=== PATIENT | female | born 1985 | race Caucasian/White ===

== ENCOUNTER 2017-11-02 15:40 | Emergency (ER) | payer OTHER ==
[2017-11-02 16:06] VITALS: BP 157/105; PULSE 89; TEMP 98.3; BMI 27.4
--- NOTE | 2017-11-02 16:06 | PDOC ---
Rapid Medical Evaluation Chief Complaint: Lightheaded Time Seen by Provider: 11/02/17 16:06 Medical Evaluation: Allergies Allergy/AdvReac Type Severity Reaction Status Date / Time No Known Allergies Allergy Verified 11/02/17 16:02 Vital Signs Temp Pulse Resp BP Pulse Ox 98.3 F 89 18 157/105 99 11/02/17 16:02 11/02/17 16:02 11/02/17 16:02 11/02/17 16:02 11/02/17 16:02 11/02/17 16:07 31 year old female with ESRD HD M/W/F with nausea/vomiting/diarrhea since Thursday. Due for HD 6p today. V/s notable for BP 157/105. Alert, oriented, no distress. RRR, S1/S2. Lungs CTAB. Abdomen soft, non-tender. -EKG -CXR -Labs including CBC, CMP, lipase -To Main ED for further eval.
[2017-11-02 17:38] LABS: BASO % 0.2 % (0-2.0); EOS % 0.3 % (0-4.5); HEMATOCRIT 40.7 % (32.4-45.2); LYMPH % 8.4 % (8-40); MCH 35.5 pg (25.7-33.7); MCHC 34.3 g/dl (32.0-36.0); MEAN CELL VOLUME 103.4 fl (80-96); MEAN PLT VOLUME 9.8 fl (7.5-11.1); MONO % 8.5 % (3.8-10.2); NEUT % 82.6 % (42.8-82.8); PLATELET COUNT 167 K/MM3 (134-434); RBC 3.93 M/mm3 (3.60-5.2); RDW 15.9 % (11.6-15.6); WHITE BLOOD COUNT 8.6 K/mm3 (4.0-10.0)
[2017-11-02] MEDS ORDERED: FAMOTIDINE 20 MG/50 ML IVPB 20 MG/50 ML MG IVPB ONE ×2 (17:44→17:58)
[2017-11-02] MEDS ORDERED: ONDANSETRON 4 MG/2 ML VIAL IVPUSH ONE (17:44)
[2017-11-02] MEDS ORDERED: SODIUM CHLORIDE 0.9% 1000 ML INFUS.BAG IV ONE (17:44)
[2017-11-02] MEDS ORDERED: ONDANSETRON 4 MG/2 ML VIAL ONE (17:57)
--- NOTE | 2017-11-02 17:58 | PDOC ---
History of Present Illness - General Chief Complaint: Lightheaded Stated Complaint: DIZZINESS, NAUSEA Time Seen by Provider: 11/02/17 16:06 History Source: Patient Exam Limitations: Language Barrier ([id number]) - History of Present Illness Initial Comments: 11/02/17 17:46 The patient is a 31F with a PMH of HTN and ESR (MWF) who presents to the ER with nausea, vomiting, and diarrhea. The patient states that she's had these symptoms for 1 week and they have been intermittent. She states that she has had diarrhea every 10-20 minutes and it is watery but not bloody. She also endorses NBNB vomiting, which she has vomited 3-4 times yesterday and 5 times today. She denies any fever, chills, abdominal pain. She does not produce urine. She has not taken antibiotics recently. Past History - Past Medical History Allergies/Adverse Reactions: Allergies Allergy/AdvReac Type Severity Reaction Status Date / Time No Known Allergies Allergy Verified 11/02/17 16:02 Home Medications: Ambulatory Orders Amlodipine Besylate [Norvasc -] 10 mg PO DAILY #0 tablet 06/02/13 Furosemide [Lasix -] 40 mg PO DAILY #0 tablet 06/02/13 Lisinopril [Prinivil] 20 mg PO DAILY #0 tablet 06/02/13 Sevelamer HCl [Renagel] 1,600 mg PO TID #0 tablet 06/02/13 Dialysis: Yes (ESRD,last dialysis on 06/01/13.) HTN: Yes - Suicide/Smoking/Psychosocial Hx Smoking History: Never smoked Have you smoked in the past 12 months: No Hx Alcohol Use: No Drug/Substance Use Hx: No Substance Use Type: None Hx Substance Use Treatment: No Review of Systems - Review of Systems Able to Perform ROS?: Yes Comments:: 11/02/17 17:58 GENERAL/CONSTITUTIONAL: No fever or chills. No weakness. HEAD, EYES, EARS, NOSE AND THROAT: No change in vision. No ear pain or discharge. No sore throat. CARDIOVASCULAR: No chest pain, palpitations, or lightheadedness. RESPIRATORY: No cough, wheezing, shortness of breath, or hemoptysis. GASTROINTESTINAL: Positive for nausea, vomiting, and diarrhea. No constipation or abdominal pain. GENITOURINARY: No dysuria, frequency, hematuria, or change in urination. MUSCULOSKELETAL: No joint or muscle swelling or pain. No neck or back pain. SKIN: No rash or lesions. NEUROLOGIC: No headache, numbness, tingling, weakness, loss of consciousness, or change in strength/sensation. ENDOCRINE: No increased thirst. No abnormal weight change. HEMATOLOGIC/LYMPHATIC: No anemia, easy bleeding, or history of blood clots. ALLERGIC/IMMUNOLOGIC: No hives or skin allergy. Is the patient limited Frisian proficient: Yes *Physical Exam - Vital Signs Last Vital Signs Temp Pulse Resp BP Pulse Ox 98.3 F 89 18 157/105 99 11/02/17 16:02 11/02/17 16:02 11/02/17 16:02 11/02/17 16:02 11/02/17 16:02 - Physical Exam Comments: 11/02/17 17:59 GENERAL: Well developed, well nourished. Awake and alert. No acute distress. HEENT: Normocephalic, atraumatic. Hearing grossly normal. Moist mucous membranes. PERRLA, EOMI. No conjunctival pallor. Sclera are non-icteric. NECK: Supple. Full ROM. CARDIOVASCULAR: Regular rate and rhythm. No murmurs, rubs, or gallops. PULMONARY: No evidence of respiratory distress. Lungs clear to auscultation bilaterally. No wheezing, rales or rhonchi. ABDOMINAL: Soft. Non-tender. Non-distended. No rebound or guarding. GENITOURINARY: No CVA tenderness bilaterally. MUSCULOSKELETAL: Normal range of motion at all joints. No bony deformities or tenderness. EXTREMITIES: No cyanosis. No clubbing. No edema. No calf tenderness or swelling. SKIN: Warm and dry. Normal capillary refill. No rashes. No jaundice. NEUROLOGICAL: Alert, awake, appropriate. Cranial nerves 2-12 intact. Normal speech. Gait is normal without ataxia. PSYCHIATRIC: Cooperative. Good eye contact. Appropriate mood and affect. Moderate Sedation - Procedure Monitoring Vital Signs: Vital Signs Temp Pulse Resp BP Pulse Ox 98.3 F 89 18 157/105 99 11/02/17 16:02 11/02/17 16:02 11/02/17 16:02 11/02/17 16:02 11/02/17 16:02 Heart Score/ECG Review #1 General ECG Interpretation: Sinus Rhythm, Normal Rate, Normal Intervals, No acute ischemic changes Compared to previous ECG there are: No significant change 11/02/17 18:01 NSR Vent rate 86 TX 130 QRS 72 QTc 406 No acute ischemic changes noted No STD or XIAO ED Treatment Course - LABORATORY CBC & Chemistry Diagram: 11/02/17 17:23 11/02/17 17:23 - ADDITIONAL ORDERS Additional order review: 11/02/17 17:23 RBC 3.93 MCV 103.4 H MCHC 34.3 RDW 15.9 H MPV 9.8 Neutrophils % 82.6 D Lymphocytes % 8.4 D Monocytes % 8.5 D Eosinophils % 0.3 D Basophils % 0.2 Medical Decision Making - Medical Decision Making 11/02/17 17:59 The patient is a 31F with a PMH of HTN and ESRD (MWF, due for dialysis today at 1800) who presents to the ER with nausea, vomiting, and diarrhea. The patient has no abdominal pain so appendicitis and ovarian torsion are low on my differential. Will treat symptomatically with zofran, pepcid, and IVF. Pending labs. EKG NSR. 11/02/17 20:24 Lipase is 430. U/S of RUQ negative. Will reassess patient. 11/02/17 21:53 Pt states she feels better. Will page Dr. Magali Huertas for recs on dialysis. 11/02/17 23:07 Dr. Huertas suggests the patient follows up tomorrow morning for dialysis. Pt states she feels much better. Will d/c home with dialysis tomorrow and PCP f/u this week. *DC/Admit/Observation/Transfer Diagnosis at time of Disposition: Gastroenteritis, ESRD (end stage renal disease) - Discharge Dispostion Disposition: HOME - Referrals - Patient Instructions Printed Discharge Instructions: DI for Viral Gastroenteritis -- Adult Additional Instructions: Por favor llame a rivas centro de dilisis maana por la maana y terrance haresh gianna con ellos para maana. Por favor, terrance un seguimiento con rivas mdico de atencin primaria en 2-3 sweet. Por favor regrese a la akanksha de emergencia si tiene signos o sntomas de dolor en el pecho, dificultad para respirar, fiebre incontrolable, escalofros, n useas, vmitos, entumecimiento, hormigueo o debilidad en cualquier parte de rivas cuerpo, cambios en la visin o dificultad para hablar. Por favor tome calvin medicamentos segn lo recetado. Por favor regrese a la akanksha de emergencias si los sntomas persisten, empeoran o surgen nuevos sntomas. Please call your dialysis center tomorrow morning and make an appointment with them for tomorrow. Please follow up with your primary care physician in 2-3 days. Please return to the ER if you have any signs or symptoms of chest pain, shortness of breath, uncontrollable fever, chills, nausea, vomiting, numbness, tingling, or weakness in any part of your body, changes in vision, or slurred speech. Please take your medications as prescribed. Please return to the ER if symptoms persist, worsen, or new symptoms arise. Print Language: LATVIAN - Post Discharge Activity
[2017-11-02 18:41] LABS: ALBUMIN 4.2 g/dl (3.4-5.0); ANION GAP 15 (8-16); BILIRUBIN,TOTAL 0.4 mg/dL (0.2-1.0); BLOOD UREA NITROGEN 82 mg/dL (7-18); CALCIUM 9.3 mg/dL (8.5-10.1); CHLORIDE 100 mmol/L (98-107); CO2 19 mmol/L (21-32); GLUCOSE,RANDOM 100 mg/dL (74-106); POTASSIUM 4.2 mmol/L (3.5-5.1); SGPT/ALT 20 U/L (12-78); SODIUM 134 mmol/L (136-145); TOT PROT 8.3 g/dl (6.4-8.2)
[2017-11-02 18:48] LABS: ALK PHOS 58 U/L (45-117)
[2017-11-02 18:53] LABS: CREATININE 14.8 mg/dL (0.55-1.02); LIPASE 431 U/L (73-393); SGOT/AST 4 U/L (15-37)
[2017-11-02] MEDS ORDERED: ACETAMINOPHEN 325 MG TABLET (FP) PO ONE (20:24)
[2017-11-02] MEDS ORDERED: ACETAMINOPHEN 325 MG TABLET (FP) ONE (20:49)
--- NOTE | 2017-11-02 22:58 | PDOC ---
Attending Attestation - Resident Resident Name: [email or web address] - ED Attending Attestation I have performed the following: I have examined & evaluated the patient, The case was reviewed & discussed with the resident, I agree w/resident's findings & plan, Exceptions are as noted - HPI HPI: 11/02/17 22:57 31 YO FEMALE HAS HAD NAUSEA,VOMITING AND DIARRHEA FOR SEVERAL DAYS - Physicial Exam PE: 11/02/17 22:58 WNWD 31 YO FEMALE W MILD EPIGSTRIC DISCOMFORT HEAD NCAT NECK SUPPLE LUNGS CTA B/L CVS CDVH0T6 ABD NO REBOUND , NO GUARDING EXT NO EDEMA DIALYSIS ACCESS INTACT NEURO NO FOCAL NEURO DEFICITS - Medical Decision Making 11/02/17 22:59 GALLBLADDER US NO EVIDENCE OF CHOLECYSTITIS LAB REVIEWED, ELECTROLYTES AARE WNL CASE DISCUSSED W DR ROBINSON VILLALBA AND PLAN IS FOR PT TO GET DIALYSIS FIRST THING IN THE MORNING PT SYMPTOSM RESOLVED IMP GASTROENTERITIS
--- NOTE | 2017-11-02 23:03 | PDOC ---
*Physical Exam - Vital Signs Last Vital Signs Temp Pulse Resp BP Pulse Ox 98.3 F 89 18 157/105 99 11/02/17 16:02 11/02/17 16:02 11/02/17 16:02 11/02/17 16:02 11/02/17 16:02 ED Treatment Course - LABORATORY CBC & Chemistry Diagram: 11/02/17 17:23 11/02/17 17:23 - ADDITIONAL ORDERS Additional order review: Laboratory Results 11/02/17 11/02/17 17:23 17:23 Sodium 134 L Potassium 4.2 Chloride 100 Carbon Dioxide 19 L Anion Gap 15 BUN 82 H Creatinine 14.8 H* Creat Clearance w eGFR 2.85 Random Glucose 100 Calcium 9.3 Total Bilirubin 0.4 AST 4 L ALT 20 Alkaline Phosphatase 58 Total Protein 8.3 H Albumin 4.2 Lipase 431 H Serum , Qual Negative 11/02/17 17:23 RBC 3.93 MCV 103.4 H MCHC 34.3 RDW 15.9 H MPV 9.8 Neutrophils % 82.6 D Lymphocytes % 8.4 D Monocytes % 8.5 D Eosinophils % 0.3 D Basophils % 0.2 - Medications Given in the ED: ED Medications Discontinued Medications Generic Name Dose Route Start Last Admin Trade Name Freq PRN Reason Stop Dose Admin Acetaminophen 650 mg 11/02/17 20:24 11/02/17 20:48 Tylenol - PO 11/02/17 20:25 650 mg ONCE ONE Administration Famotidine/Sodium Chloride 20 mg in 50 mls @ 100 mls/hr 11/02/17 17:44 17:44 Pepcid 20 Mg Premixed Ivpb - IVPB 11/02/17 18:13 100 mls/hr ONCE ONE Administration Ondansetron HCl 4 mg 11/02/17 17:44 11/02/17 17:44 Zofran Injection IVPUSH 11/02/17 17:45 4 mg ONCE ONE Administration Sodium Chloride 500 ml 11/02/17 17:44 11/02/17 17:45 Normal Saline - IV 11/02/17 17:45 Not Given ONCE ONE *DC/Admit/Observation/Transfer Diagnosis at time of Disposition: Gastroenteritis, ESRD (end stage renal disease) - Discharge Dispostion Disposition: HOME Condition at time of disposition: Stable - Referrals - Patient Instructions Printed Discharge Instructions: DI for Viral Gastroenteritis -- Adult Additional Instructions: GO TO DIALYSIS IN THE MORNING Print Language: [place] CITIZEN - Post Discharge Activity
--- NOTE | 2017-11-02 23:32 | EKG ---
Test Reason : Blood Pressure : / mmHG Vent. Rate : 086 BPM Atrial Rate : 086 BPM P-R Int : 130 ms QRS Dur : 072 ms QT Int : 340 ms P-R-T Axes : 062 069 052 degrees QTc Int : 406 ms NORMAL SINUS RHYTHM POSSIBLE LEFT ATRIAL ENLARGEMENT BORDERLINE ECG WHEN COMPARED WITH ECG OF 02-JUN-2013 08:56, NO SIGNIFICANT CHANGE WAS FOUND Confirmed by DANYA CARIAS MD ([id number]) on 11/02/2017 11:32:25 PM Referred By: Confirmed By:DANYA CARIAS MD
== END 2017-11-02 23:45 | disposition home or self-care (01) ==
LOC: JER 15:40
PROC: 3E033GC Introduction of Other Therapeutic Substance into Peripheral Vein, Percutaneous Approach (ICD-10-PCS; principal; 2017-11-02)
PROC: 3E033GC Introduction of Other Therapeutic Substance into Peripheral Vein, Percutaneous Approach (ICD-10-PCS; 2017-11-02)
DX: K52.9 Noninfective gastroenteritis and colitis, unspecified (principal); I12.0 Hypertensive chronic kidney disease with stage 5 chronic kidney disease or end stage renal disease; N18.6 End stage renal disease; N17.8 Other acute kidney failure; Z99.2 Dependence on renal dialysis
CPT/HCPCS: 36415; 71046-TC-FY; 76705-TC; 80053; 83690; 84703; 85025; 93005; 93010; 96365; 96375; 99281-25

== ENCOUNTER 2018-08-25 06:09 | Inpatient (IN) | payer OTHER ==
[~2018-08-25 06:09] MED LIST: BUPIVACAINE HCL/PF (5 MG/ML) 30 ML VIAL IJ ONE
[2018-08-25 07:04] VITALS: BMI 22.3
[2018-08-25] MEDS ORDERED: FAMOTIDINE 20 MG/50 ML IVPB 20 MG/50 ML MG IVPB ONE ×2 (07:38→07:46)
[2018-08-25] MEDS ORDERED: ONDANSETRON *ODT* 4 MG TABLET SL ONE (07:38)
[2018-08-25] MEDS ORDERED: SODIUM CHLORIDE 500 ML IV STA (07:38)
--- NOTE | 2018-08-25 07:43 | PDOC ---
History of Present Illness - General Chief Complaint: Nausea/Vomiting Stated Complaint: VOMITING Time Seen by Provider: 08/25/18 07:27 History Source: Patient Exam Limitations: Clinical Condition - History of Present Illness Initial Comments: 08/25/18 07:39 Patient with history of HTN and renal failure on dialysis present with complaint of epigastric pain, nausea, vomiting and diarrhea since yesterday. Patient reported vomiting 6 times since yesterday and having 4 episodes of diarrhea. Patient denies fever but reports chills. Denies dizziness, cough, shortness of breath or bodyaches. Denies any other symptoms. Patient report last dialysis 3 days ago and will need dialysis today. Timing/Duration: 24 hours Past History - Past Medical History Allergies/Adverse Reactions: Allergies Allergy/AdvReac Type Severity Reaction Status Date / Time No Known Allergies Allergy Verified 08/25/18 07:03 Home Medications: Ambulatory Orders Amlodipine Besylate [Norvasc -] 10 mg PO DAILY #0 tablet 06/02/13 Furosemide [Lasix -] 40 mg PO DAILY #0 tablet 06/02/13 Lisinopril [Prinivil] 20 mg PO DAILY #0 tablet 06/02/13 Sevelamer HCl [Renagel] 1,600 mg PO TID #0 tablet 06/02/13 Dialysis: Yes (ESRD,last dialysis on 06/01/13.) HTN: Yes - Suicide/Smoking/Psychosocial Hx Smoking History: Never smoked Have you smoked in the past 12 months: No Information on smoking cessation initiated: No Hx Alcohol Use: No Drug/Substance Use Hx: No Substance Use Type: None Hx Substance Use Treatment: No Review of Systems - Review of Systems Able to Perform ROS?: Yes Is the patient limited Danish proficient: No Constitutional: Yes: See HPI, Chills. No: Fever HEENTM: No: Symptoms Reported, See HPI, Eye Pain, Blurred Vision, Tearing, Recent change in vision, Double Vision, Cataracts, Ear Pain, Ocular Prothesis, Ear Discharge, Nose Pain, Nose Congestion, Tinnitus, Nose Bleeding, Hearing Loss , Throat Pain, Throat Swelling, Mouth Pain, Dental Problems, Difficulty Swallowing, Mouth Swelling, Other Respiratory: No: Symptoms reported, See HPI, Cough, Orthopnea, Shortness of Breath, SOB with Exertion, SOB at Rest, Stridor, Wheezing, Productive cough, Hemoptysis, Other Cardiac (ROS): No: Symptoms Reported, See HPI, Chest Pain, Edema, Irregular Heart Rate, Lightheadedness, Palpitations, Syncope, Chest Tightness, Other ABD/GI: Yes: See HPI, Diarrhea, Nausea, Vomiting, Abdominal cramping (epigastric ). No: Constipated : No: Dysuria, Frequency, Flank Pain, Hematuria, Urgency All Other Systems: Reviewed and Negative *Physical Exam - Vital Signs Last Vital Signs Temp Pulse Resp BP Pulse Ox 98.3 F 79 16 134/90 100 08/25/18 06:10 08/25/18 06:10 08/25/18 06:10 08/25/18 06:10 08/25/18 06:10 - Physical Exam Comments: 08/25/18 07:41 GENERAL: Well developed, well nourished. Awake and alert. No acute distress. HEENT: Normocephalic, atraumatic. PERRLA, EOMI. No conjunctival pallor. Sclera are non-icteric. Moist mucous membranes. Oropharynx is clear. NECK: Supple. Full ROM. CARDIOVASCULAR: Regular rate and rhythm. No murmurs, rubs, or gallops. Distal pulses are 2+ and symmetric. PULMONARY: No evidence of respiratory distress. Lungs clear to auscultation bilaterally. No wheezing, rales or rhonchi. ABDOMINAL: Mild epigastric tenderness to deep palpation. Soft. Non-distended. No rebound or guarding. No organomegaly. Normoactive bowel sounds. MUSCULOSKELETAL Normal range of motion at all joints. SKIN: Warm and dry. Normal capillary refill. No rashes. No jaundice. NEUROLOGICAL: Alert, awake, appropriate. Gait is normal without ataxia. PSYCHIATRIC: Cooperative. Good eye contact. Appropriate mood General Appearance: Yes: Nourished, Appropriately Dressed. No: Apparent Distress Moderate Sedation - Procedure Monitoring Vital Signs: Procedure Monitoring Vital Signs Temperature 98.3 F 08/25/18 06:10 Pulse Rate 79 08/25/18 06:10 Respiratory Rate 16 08/25/18 06:10 Blood Pressure 134/90 08/25/18 06:10 O2 Sat by Pulse Oximetry (%) 100 08/25/18 06:10 ED Treatment Course - LABORATORY CBC & Chemistry Diagram: 08/25/18 07:50 08/25/18 07:50 Medical Decision Making - Medical Decision Making 08/25/18 07:41 Patient with past medical history of HTN and renal failure present with complaint of 24 hour history of GI symptoms of diarrhea, nausea or vomiting and epigastric pain. Exam significant for moderate tenderness to the epigastric region without guarding or rebound. Symptoms likely cholecystitis versus viral gastroenteritis versus viral syndrome. CBC and chemistry lab ordered. Urine , urinalysis and urine culture ordered. IV fluids with normal saline 500 mg bolus ordered. Pepcid 20 mg IV and Zofran ordered for nausea vomiting and epigastric pain. 08/25/18 11:22 CBC with elevated WBC of 12.9. elevated kidney function which is expected given hx. called to Patient renal provider Dr. Suri Sims office and spoke to Dr. Haseeb Alejandro who agrees to do abd CT with contrast and obs pt for dialysis and gastroenteritis management until last least tomorrow. 08/25/18 16:[address] with contrast shows appendicitis. Zosyn 2.25g ordered. surgical consult obtained 08/25/18 16:27 Patient seen by surgery and to be taken to OR for appendicitis management. Patient admitted to medicine under Dr. Price who will manage patient post surgery and Patient will get dialysis tomorrow at in *DC/Admit/Observation/Transfer Diagnosis at time of Disposition: ESRD (end stage renal disease), Gastroenteritis - Discharge Dispostion Condition at time of disposition: Stable Decision to Admit order: Yes - Referrals - Patient Instructions - Post Discharge Activity
[2018-08-25] MEDS ORDERED: ONDANSETRON *ODT* 4 MG TABLET ONE (07:46)
[2018-08-25 08:05] LABS: BASO % 0.7 % (0-2.0); EOS % 0.1 % (0-4.5); HEMATOCRIT 35.4 % (32.4-45.2); HEMOGLOBIN 12.4 GM/dL (10.7-15.3); LYMPH % 5.7 % (8-40); MEAN CELL VOLUME 102.9 fl (80-96); MEAN PLT VOLUME 8.8 fl (7.5-11.1); MONO % 3.3 % (3.8-10.2); NEUT % 90.2 % (42.8-82.8); PLATELET COUNT 174 K/MM3 (134-434); RBC 3.44 M/mm3 (3.60-5.2); RDW 15.1 % (11.6-15.6); WHITE BLOOD COUNT 12.9 K/mm3 (4.0-10.0)
--- NOTE | 2018-08-25 08:34 | PDOC ---
*Physical Exam - Vital Signs Last Vital Signs Temp Pulse Resp BP Pulse Ox 98.3 F 79 16 134/90 100 08/25/18 06:10 08/25/18 06:10 08/25/18 06:10 08/25/18 06:10 08/25/18 06:10 - Physical Exam Comments: 08/25/18 08:34 The patient was examined by [WILLOW Gerber] under my direct supervision. I personally evaluated the patient. I concur with the above findings and the plan of care. ED Treatment Course - LABORATORY CBC & Chemistry Diagram: 08/27/18 05:30 08/27/18 05:30 - ADDITIONAL ORDERS Additional order review: 08/25/18 07:50 RBC 3.44 L MCV 102.9 H MCHC 35.0 RDW 15.1 MPV 8.8 D Neutrophils % 90.2 H Lymphocytes % 5.7 L D Monocytes % 3.3 L Eosinophils % 0.1 Basophils % 0.7 D - Medications Given in the ED: ED Medications Discontinued Medications Generic Name Dose Route Start Last Admin Trade Name Herb PRN Reason Stop Dose Admin Famotidine/Sodium Chloride 20 mg in 50 mls @ 100 mls/hr 08/25/18 07:38 08:05 Pepcid 20 Mg Premixed Ivpb - IVPB 08/25/18 08:07 100 mls/hr ONCE ONE Administration Ondansetron HCl 4 mg 08/25/18 07:38 08/25/18 08:05 Zofran Odt - SL 08/25/18 07:39 4 mg ONCE ONE Administration *DC/Admit/Observation/Transfer Diagnosis at time of Disposition: ESRD (end stage renal disease), Gastroenteritis - Discharge Dispostion Disposition: HOME Condition at time of disposition: Improved - Referrals - Patient Instructions - Post Discharge Activity
[2018-08-25 08:39] LABS: ALBUMIN 3.8 g/dl (3.4-5.0); ALK PHOS 53 U/L (45-117); ANION GAP 7 MMOL/L (8-16); BILIRUBIN,TOTAL 0.4 mg/dL (0.2-1); BLOOD UREA NITROGEN 50 mg/dL (7-18); CALCIUM 9.5 mg/dL (8.5-10.1); CHLORIDE 98 mmol/L (98-107); CO2 28 mmol/L (21-32); GLUCOSE,RANDOM 114 mg/dL (74-106); POTASSIUM 5.4 mmol/L (3.5-5.1); SGOT/AST 13 U/L (15-37); SGPT/ALT 28 U/L (13-61); SODIUM 134 mmol/L (136-145); TOT PROT 7.2 g/dl (6.4-8.2)
[2018-08-25] MEDS ORDERED: MAG HYDROX/AL HYDROX/SIMETH 30 ML UNIT-DOSE CUP PO ONE (08:56)
[2018-08-25] MEDS ORDERED: ACETAMINOPHEN 1000 MG/100 ML VIAL (NON FORMULARY) IVPB ONE ×2 (08:56→19:50)
[2018-08-25 09:06] LABS: CREATININE 9.6 mg/dL (0.55-1.3)
[2018-08-25] MEDS ORDERED: ACETAMINOPHEN INJECTION 100 ML IVPB ONE ×2 (09:47→20:09)
[2018-08-25] MEDS ORDERED: MAG HYDROX/AL HYDROX/SIMETH 30 ML UNIT-DOSE CUP ONE (09:48)
[2018-08-25 11:24] LABS: LIPASE 463 U/L (73-393)
[2018-08-25] MEDS ORDERED: SODIUM CHLORIDE 250 ML IV PRN (11:44)
--- NOTE | 2018-08-25 12:11 | CONSULT ---
Consult - text type - Consultation Consultation Note: Renal Consult for ESRD on HD This is a 32 year old woman with hx of ESRD on HD (x 6 years), Hypertension who presented with complaints of N/V x 1 day. Pt last had dialysis on Thursday w/o complication. Denies any sick contacts, or new foods. Reports Abd pain that is slightly improved now. No fevers but did have chills. No WHITNEY, Confusion, SOB, CP, leg swelling. Planned for CT of Abd/Pelvis with IV contrast. PMHx: as above Allergies: NKDA Family Hx: NC Social Hx: No T/A/D ROS: as per HPI, all other pertinent ros negative Home Medications Medication Instructions Recorded Amlodipine Besylate [Norvasc -] 10 mg PO DAILY #0 tablet 06/02/13 Furosemide [Lasix -] 40 mg PO DAILY #0 tablet 06/02/13 Lisinopril [Prinivil] 20 mg PO DAILY #0 tablet 06/02/13 Sevelamer HCl [Renagel] 1,600 mg PO TID #0 tablet 06/02/13 Vital Signs Temperature 98.3 F 08/25/18 06:10 Pulse Rate 79 08/25/18 06:10 Respiratory Rate 16 08/25/18 06:10 Blood Pressure 134/90 08/25/18 06:10 O2 Sat by Pulse Oximetry (%) 100 08/25/18 06:10 NAD awake and alert neck supple,no JVD RRR, no M/R CTA, no rales or wheeze soft, + tenderness in epigastric and RLQ. No LE edema left upper arm AVF in place CBC, BMP 08/25/18 07:50 08/25/18 07:50 Laboratory Tests 08/25/18 07:50 AST 13 L ALT 28 Alkaline Phosphatase 53 Albumin 3.8 Lipase 463 H Current Medications Sodium Chloride (Normal Saline -) 250 mls @ 3,000 mls/hr IV PRN PRN PRN Reason: Hypotension during Dialysis Stop: 08/26/18 11:44 32 year old woman with hx of ESRD on HD (x 6 years), Hypertension who presented with complaints of N/V x 1 day. #Nausea and vomiting with Abd pain r/o pancreatitis vs. cholecystitis vs. gastroenteritis #ESRD on HD #Hypertension #Renal Osteodystrophy For CT of the Abd pelvis continue antiemetics as per ED pain control for Hd today following contrast exposure with UF as tolerated Renal Diet when tolerated Continue Amlodipnie, Lisinopril and Lasix following dialysis Continue Pastora plascencia Thank you Will follow Haseeb Alejandro DO
[2018-08-25] MEDS ORDERED: PIPERACILLIN/TAZOB 2.25 GM 2.25 GM in DEXTROSE 5%-WATER - 50 ML IVPB ONE (16:05)
[2018-08-25] MEDS ORDERED: PIPERACILLIN/TAZOB 2.25 GM 2.25 GM/50 ML BAG IVPB ONE (16:09)
[2018-08-25] MEDS ORDERED: SODIUM CHLORIDE 1,000 ML IV SCH ×2 (16:30→17:15)
[2018-08-25] MEDS ORDERED: MORPHINE SULFATE 2 MG/ML VIAL ONE (16:40)
[2018-08-25] MEDS ORDERED: morphine CARPU-JECT 2 MG/1 ML DISP.SYRIN IVPUSH ONE (16:40)
--- NOTE | 2018-08-25 16:48 | HP ---
CHIEF COMPLAINT: nausea, vomiting PCP: HISTORY OF PRESENT ILLNESS: THis is a 32 year old female with a history of renal osteodystrophy with ESRD on HD (MWF), HTN who presents with nausea, NBNB vomiting and non bloody bilious diarrhea, abdominal pain x1 day. States she ate shrimp yesterday, no sick contacts at home. Denies fever but endorses chills. Last dialysis was Thursday. ER CT scan with contrast notable for acute appendicitis. Recent Travel: no PAST MEDICAL HISTORY: as above PAST SURGICAL HISTORY: c section Social History: Smoking:no Alcohol:no Drugs: no Family History: Allergies No Known Allergies Allergy (Verified 08/25/18 07:03) HOME MEDICATIONS: Home Medications Medication Instructions Recorded Amlodipine Besylate [Norvasc -] 10 mg PO DAILY #0 tablet 06/02/13 Furosemide [Lasix -] 40 mg PO DAILY #0 tablet 06/02/13 Lisinopril [Prinivil] 20 mg PO DAILY #0 tablet 06/02/13 Sevelamer HCl [Renagel] 1,600 mg PO TID #0 tablet 06/02/13 REVIEW OF SYSTEMS CONSTITUTIONAL: Positive: chills Absent: fever,, diaphoresis, generalized weakness, malaise, loss of appetite, weight change HEENT: Absent: rhinorrhea, nasal congestion, throat pain, throat swelling, difficulty swallowing, mouth swelling, ear pain, eye pain, visual changes CARDIOVASCULAR: Absent: chest pain, syncope, palpitations, irregular heart rate, lightheadedness , peripheral edema RESPIRATORY: Absent: cough, shortness of breath, dyspnea with exertion, orthopnea, wheezing, stridor, hemoptysis GASTROINTESTINAL: Positive: abdominal pain ,nausea, vomiting, diarrhea, Absent: , abdominal distension, constipation, melena, hematochezia GENITOURINARY: Absent: dysuria, frequency, urgency, hesitancy, hematuria, flank pain, genital pain MUSCULOSKELETAL: Absent: myalgia, arthralgia, joint swelling, back pain, neck pain SKIN: Absent: rash, itching, pallor HEMATOLOGIC/IMMUNOLOGIC: Absent: easy bleeding, easy bruising, lymphadenopathy, frequent infections ENDOCRINE: Absent: unexplained weight gain, unexplained weight loss, heat intolerance, cold intolerance NEUROLOGIC: Absent: headache, focal weakness or paresthesias, dizziness, unsteady gait, seizure, mental status changes, bladder or bowel incontinence PSYCHIATRIC: Absent: anxiety, depression, suicidal or homicidal ideation, hallucinations. PHYSICAL EXAMINATION Vital Signs - 24 hr 08/25/18 08/25/18 06:10 16:30 Temperature 98.3 F Pulse Rate 79 Pulse Rate [ 82 Right] Respiratory 16 Rate Blood Pressure 134/90 Blood Pressure 159/98 [Right Arm] O2 Sat by Pulse 100 Oximetry (%) GENERAL: Awake, alert, and fully oriented, in no acute distress. HEAD: Normal with no signs of trauma. EYES: Pupils equal, round and reactive to light, extraocular movements intact, sclera anicteric, conjunctiva clear. No lid lag. EARS, NOSE, THROAT: Ears normal, nares patent, oropharynx clear without exudates. Moist mucous membranes. NECK: Normal range of motion, supple without lymphadenopathy, JVD, or masses. Breast/axilla; no masses lumps LUNGS: Breath sounds equal, clear to auscultation bilaterally. No wheezes, and no crackles. No accessory muscle use. HEART: Regular rate and rhythm, normal S1 and S2 without murmur, rub or gallop. ABDOMEN: soft; tender b/l lower quad; psoas +; +rovsing MUSCULOSKELETAL: Normal range of motion at all joints. No bony deformities or tenderness. No CVA tenderness. UPPER EXTREMITIES: 2+ pulses, warm, well-perfused. No cyanosis. No clubbing. No peripheral edema. left av fistula with thrill LOWER EXTREMITIES: 2+ pulses, warm, well-perfused. No calf tenderness. No peripheral edema. NEUROLOGICAL: Cranial nerves II-XII intact. Normal speech. PSYCHIATRIC: Cooperative. Good eye contact. Appropriate mood and affect. SKIN: Warm, dry, normal turgor, no rashes or lesions noted, normal capillary refill. Laboratory Results - last 24 hr 08/25/18 08/25/18 08/25/18 07:50 07:50 07:50 WBC 12.9 H RBC 3.44 L Hgb 12.4 Hct 35.4 MCV 102.9 H MCH 36.0 H MCHC 35.0 RDW 15.1 Plt Count 174 MPV 8.8 D Absolute Neuts (auto) 11.6 H Neutrophils % 90.2 H Lymphocytes % 5.7 L D Monocytes % 3.3 L Eosinophils % 0.1 Basophils % 0.7 D Nucleated RBC % 0 Sodium 134 L Potassium 5.4 H Chloride 98 Carbon Dioxide 28 Anion Gap 7 L BUN 50 H Creatinine 9.6 H* Creat Clearance w eGFR 4.67 Random Glucose 114 H Calcium 9.5 Total Bilirubin 0.4 AST 13 L ALT 28 Alkaline Phosphatase 53 Total Protein 7.2 Albumin 3.8 Lipase 463 H Beta HCG, Quant Serum , Qual Negative 08/25/18 12:48 WBC RBC Hgb Hct MCV MCH MCHC RDW Plt Count MPV Absolute Neuts (auto) Neutrophils % Lymphocytes % Monocytes % Eosinophils % Basophils % Nucleated RBC % Sodium Potassium Chloride Carbon Dioxide Anion Gap BUN Creatinine Creat Clearance w eGFR Random Glucose Calcium Total Bilirubin AST ALT Alkaline Phosphatase Total Protein Albumin Lipase Beta HCG, Quant 1.0 Serum , Qual ASSESSMENT/PLAN: This is a 32 year old female with a history of renal osteodystrophy and ESRD on HD, htn, who presents with n/v/d, found to have acute appendicitis. #acute appendicitis: -npo -blood cultures -IV antibiotic zosyn -surgery consult; plan for OR #ESRD: -HD today to medically optimize for surgery -monitor vitals #HTN: -will hold antihypertensive for now as patient is getting HD and plan for sx #hyperkalemia; getting HD today #IVF: hx of esrd; gentle hydration #DIET: npo for sx VTE: scd GI: protonix Disposition: inpatient med surg Visit type - Emergency Visit Emergency Visit: Yes ED Registration Date: 08/25/18 Care time: The patient presented to the Emergency Department on the above date and was hospitalized for further evaluation of their emergent condition. - New Patient This patient is new to me today: Yes Date on this admission: 08/25/18 - Critical Care Critical Care patient: No
--- NOTE | 2018-08-25 17:11 | PN ---
Teaching Attending Note Name of Resident: Mavis Cross ATTENDING PHYSICIAN STATEMENT I saw and evaluated the patient. I reviewed the resident's note and discussed the case with the resident. I agree with the resident's findings and plan as documented with exceptions below. SUBJECTIVE: 32 yof with PMhx of ESRD on HD (x 6 years), HTN, renal osteodystrophy comes with 2 days of abdominal pain, reports worse in right lower abdomen, also epigastrium and Left abdomen, associated with nausea, non bloody vomitus/ diarrhea, with poor oral intake, none since yesterday evening. Denies any fevers , chills or sick contacts. Similar symptoms prior when thought was 'gastritis'. 12 point ROS done, neg except above, denies any chest pain, dyspnea, palpitations, weight gain, orthopnea, PND, leg swelling or new concerns otherwise. OBJECTIVE: Vital Signs Period Temp Pulse Resp BP Sys/House Pulse Ox Last 24 Hr 98.3 F 79-82 16 134-159/90-98 100 Intake & Output 08/22/18 08/23/18 08/24/18 08/25/18 23:59 23:59 23:59 23:59 Weight 130 lb GENERAL: Awake, alert, and fully oriented,weak looking, dehydrated but no acute distress HEAD: Normal with no signs of trauma. EYES: Pupils equal, round and reactive to light, extraocular movements intact, sclera anicteric, conjunctiva clear. No lid lag. EARS, NOSE, THROAT: Ears normal, nares patent, oropharynx clear without exudates. dry skin and mucous membranes. NECK: Normal range of motion, supple without lymphadenopathy, JVD, LUNGS: Breath sounds equal, clear to auscultation bilaterally. No wheezes, and no crackles. No accessory muscle use. HEART: Regular rate and rhythm, normal S1 and S2 ABDOMEN: Soft, obese, RLQ tenderness, positive Rovsing's sin, no voluntary or involuntary guarding or rigidity, positive bowel sound,s mild epigastric tenderness MUSCULOSKELETAL: Normal range of motion at all joints. No bony deformities or tenderness. No CVA tenderness. UPPER EXTREMITIES: left arm AV fistula, no edema, positive pulses LOWER EXTREMITIES: 2+ pulses, warm, well-perfused. No calf tenderness. No peripheral edema. NEUROLOGICAL: AAOx3, facial symmetry, power 5/5, Cranial nerves II-XII intact. Normal speech. Gait not observed PSYCHIATRIC: Cooperative. Good eye contact. Appropriate mood and affect. SKIN: Warm, dry,decreased turgor, no rashes or lesions noted, normal capillary refill. Home Medications Medication Instructions Recorded Amlodipine Besylate [Norvasc -] 10 mg PO DAILY #0 tablet 06/02/13 Furosemide [Lasix -] 40 mg PO DAILY #0 tablet 06/02/13 Lisinopril [Prinivil] 20 mg PO DAILY #0 tablet 06/02/13 Sevelamer HCl [Renagel] 1,600 mg PO TID #0 tablet 06/02/13 Active Medications Sodium Chloride (Normal Saline -) 250 mls @ 3,000 mls/hr IV PRN PRN PRN Reason: Hypotension during Dialysis Stop: 08/26/18 11:44 Sodium Chloride (Normal Saline -) 1,000 mls @ 60 mls/hr IV ASDIR [facility] Stop: 08/26/18 16:30 Last Admin: 08/25/18 17:00 Dose: 60 mls/hr Pantoprazole Sodium (Protonix Iv) 40 mg IVPUSH DAILY [facility] Laboratory Results - last 24 hr 08/25/18 08/25/18 08/25/18 07:50 07:50 07:50 WBC 12.9 H RBC 3.44 L Hgb 12.4 Hct 35.4 MCV 102.9 H MCH 36.0 H MCHC 35.0 RDW 15.1 Plt Count 174 MPV 8.8 D Absolute Neuts (auto) 11.6 H Neutrophils % 90.2 H Lymphocytes % 5.7 L D Monocytes % 3.3 L Eosinophils % 0.1 Basophils % 0.7 D Nucleated RBC % 0 Sodium 134 L Potassium 5.4 H Chloride 98 Carbon Dioxide 28 Anion Gap 7 L BUN 50 H Creatinine 9.6 H* Creat Clearance w eGFR 4.67 Random Glucose 114 H Calcium 9.5 Total Bilirubin 0.4 AST 13 L ALT 28 Alkaline Phosphatase 53 Total Protein 7.2 Albumin 3.8 Lipase 463 H Beta HCG, Quant Serum , Qual Negative 08/25/18 12:48 WBC RBC Hgb Hct MCV MCH MCHC RDW Plt Count MPV Absolute Neuts (auto) Neutrophils % Lymphocytes % Monocytes % Eosinophils % Basophils % Nucleated RBC % Sodium Potassium Chloride Carbon Dioxide Anion Gap BUN Creatinine Creat Clearance w eGFR Random Glucose Calcium Total Bilirubin AST ALT Alkaline Phosphatase Total Protein Albumin Lipase Beta HCG, Quant 1.0 Serum , Qual CT A/P results reviewed EKG NSR, no acute ST-T changes, no Peaked T waves noted Abdominal US results noted ASSESSMENT AND PLAN: 32 yof with ESRD on HD, HTN, renal osteodystrophy with acute appendicitis -Acute appendicitis -Mild hyperkalemia -ESRD on HD -HTN -renal osteodystrophy Plan: case discussed with Dr. Jimenez, Dr. Alejandro and Dr. souza. Plan for OR now. As discussed with Dr. Alejandro, plan for HD tomorrow. Monitor post op closely. Gentle hydration with monitoring of volume status. Blood cx, zosyn renal dosing. Hold anti-HTN, acei for now. DVTPPX pending surgical plans. Call [facility] to reconcile meds. Dispo pending surgical plan and clinical improvement. Plan discussed with patient in detail, all questions answered. Care co-ordinated with Ed and multiple providers as above Total admit time 65 min.
[2018-08-25] MEDS ORDERED: ONDANSETRON 4 MG/2 ML VIAL IVPUSH PRN (17:15)
[2018-08-25] MEDS ORDERED: PROMETHAZINE HCL 25 MG/1 ML VIAL IVPUSH PRN (17:15)
--- NOTE | 2018-08-25 18:18 | PN ---
Progress Note (short form) - Note Progress Note: ID consult dictated d/w Dr Jimenez imp/reccd 32 yo female with esrd/hd for last 6 years admitted with RLQ pain and appendicitis- no fevers +chills, +nausea, vomitng and diarrhea no recent travel lives with family received zosyn in ED d/w Dr Jimenez to receive cefoxitin 1 gram at time of surgery further need for antibiotics to be determined by operative findings [employer] [id number] Problem List - Problems (1) Appendicitis, acute Code(s): K35.80 - UNSPECIFIED ACUTE APPENDICITIS (2) ESRD on hemodialysis Code(s): N18.6 - END STAGE RENAL DISEASE; Z99.2 - DEPENDENCE ON RENAL DIALYSIS
--- NOTE | 2018-08-25 18:35 | CONSULT ---
Consult Consult Specialty:: General Surgery Referred by:: Layla Cunningham/Yue Price Reason for Consultation:: appendicitis - History of Present Illness Chief Complaint: central abdominal pain migrating to RLQ, N/V, diarrhea History of Present Illness: 32yo [place] F with HTN, ESRD on HD x 6 years via LUE fistula, presents with central abdominal pain starting yesterday evening, migrating to RLQ, associated with chills but no fever, N/V, diarrhea. She makes urine about once daily, last yesterday and denies urinary symptoms. In ER, she had wbc 12.9, CT shows acute appendicitis with retrocecal appendix. Labs significant for elevated BUN/Cr, last HD was Thursday, and K 5.4. Per renal, she is stable and can have HD in am. Surgery was asked to assess; she is admitted to medicine. She got 500ml saline in ER and Zosyn 2.25g. She is NPO except some water today, since last night. Home meds include daily Lisinopril, Amlodipine and Metoprolol (bid). Previous surgery includes 3 c-sections via lower midline incision. Pain is better after medication, but is coming back. 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 Place of : Other ([place]) Home Medications - Allergies Allergies/Adverse Reactions: Allergies Allergy/AdvReac Type Severity Reaction Status Date / Time No Known Allergies Allergy Verified 08/25/18 07:03 - Home Medications Home Medications: Ambulatory Orders Amlodipine Besylate [Norvasc -] 10 mg PO DAILY #0 tablet 06/02/13 Furosemide [Lasix -] 40 mg PO DAILY #0 tablet 06/02/13 Lisinopril [Prinivil] 20 mg PO DAILY #0 tablet 06/02/13 Sevelamer HCl [Renagel] 1,600 mg PO TID #0 tablet 06/02/13 Home Medications (free text): also metoprolol 50mg bid Family Disease History - Family Disease History Family History: Unable to Obtain (noncontributory) Review of Systems - Review of Systems Constitutional: reports: Chills. denies: Fever Eyes: denies: Blurred Vision, Recent Change in Vision HENT: denies: Difficult Swallowing, Throat Pain Neck: denies: Swollen Glands, Tenderness Cardiovascular: denies: Chest Pain, Palpitations Respiratory: denies: Cough, SOB Gastrointestinal: reports: Abdominal Pain (with hpi), Diarrhea (with hpi), Nausea (with hpi), Vomiting (with hpi). denies: Constipation Genitourinary: denies: Burning, Dysuria Musculoskeletal: denies: Back Pain, Joint Pain, Muscle Pain Integumentary: reports: Other (warts on right hand). denies: Change in Color, Rash Neurological: denies: Dizziness, Headache Psychiatric: denies: Anxiety, Depression Physical Exam Vital Signs: Vital Signs Temperature 98.3 F 08/25/18 06:10 Pulse Rate 82 08/25/18 16:30 Respiratory Rate 16 08/25/18 06:10 Blood Pressure 159/98 08/25/18 16:30 O2 Sat by Pulse Oximetry (%) 100 08/25/18 06:10 Constitutional: Yes: Well Nourished, No Distress, Calm Eyes: Yes: Conjunctiva Clear, EOM Intact HENT: Yes: Atraumatic, Normocephalic Neck: Yes: Supple, Trachea Midline Cardiovascular: Yes: Tachycardia (mild), Murmur (possible). No: Pulse Irregular Respiratory: Yes: Regular, CTA Bilaterally Gastrointestinal: Yes: Soft, Tenderness (RLQ and RUQ, no rebound or guarding). No: Distention ...Rectal Exam: Yes: Deferred Renal/: Yes: Oliguria (makes urine about once a day, last yesterday). No: CVA Tenderness - Left, CVA Tenderness - Right Musculoskeletal: No: Back Pain, Joint Stiffness, Joint Swelling Extremities: Yes: Other (left arm with AV fistula, excellent thrill, just above and below antecubital fossa). No: Cool, Cyanosis Edema: No Peripheral Pulses WNL: Yes Integumentary: No: Jaundice, Rash Neurological: Yes: Alert, Oriented Psychiatric: Yes: Alert, Oriented Labs: CBC, BMP 08/25/18 07:50 08/25/18 07:50 CMP Sodium 134 mmol/L (136-145) L 08/25/18 07:50 Potassium 5.4 mmol/L (3.5-5.1) H 08/25/18 07:50 Chloride 98 mmol/L (98-107) 08/25/18 07:50 Carbon Dioxide 28 mmol/L (21-32) 08/25/18 07:50 Anion Gap 7 MMOL/L (8-16) L 08/25/18 07:50 BUN 50 mg/dL (7-18) H 08/25/18 07:50 Creatinine 9.6 mg/dL (0.55-1.3) H* 08/25/18 07:50 Creat Clearance w eGFR 4.67 (>60) 08/25/18 07:50 Random Glucose 114 mg/dL (74-106) H 08/25/18 07:50 Calcium 9.5 mg/dL (8.5-10.1) 08/25/18 07:50 Total Bilirubin 0.4 mg/dL (0.2-1) 08/25/18 07:50 AST 13 U/L (15-37) L 08/25/18 07:50 ALT 28 U/L (13-61) 08/25/18 07:50 Alkaline Phosphatase 53 U/L (45-117) 08/25/18 07:50 Total Protein 7.2 g/dl (6.4-8.2) 08/25/18 07:50 Albumin 3.8 g/dl (3.4-5.0) 08/25/18 07:50 Lipase 463 U/L (73-393) H 08/25/18 07:50 Beta HCG, Quant 1.0 mIU/ml 08/25/18 12:48 Serum , Qual Negative 08/25/18 07:50 last dialysis was Thursday Imaging - Results Cat Scan: Report Reviewed, Image Reviewed (images reviewed - enlarged retrocecal appendix with reid-inflammatory changes) Problem List - Problems (1) Acute appendicitis with localized peritonitis, without perforation or abscess Assessment/Plan: admitted to medicine NPO/IVF until postop - IVF until eating postop pain meds prn - nonnarcotics first line avoid ibuprofen/NSAIDs per renal antibiotics perioperatively - got Zosyn in ER DVT prophylaxis Discussed with patient using [employer] phone foreign language interpreter risks, benefits and alternatives of laparoscopic possible open appendectomy, including but not limited to bleeding, infection, injury to adjacent structures, intestinal leak or injury, intraabdominal abscess, incisional hernia, need for further procedures, ; alternatives include antibiotics, delayed or no surgery - risks of this include failure of nonoperative therapy, perforation, sepsis, recurrence, . Patient desires to proceed with operation - will take to OR for above. Informed consent signed for same. will have HD tomorrow morning, heparin-free run anticipate resuming po postop if all goes well, may be able to go home tomorrow after seen by surgery discussed with Dr. Alejandro and Dr. Price Code(s): K35.30 - ACUTE APPENDICITIS WITH LOC PERITONITIS, W/O PERF OR GANGR Qualifiers: Appendicitis gangrene presence: without gangrene Qualified Code(s): K35.30 - Acute appendicitis with localized peritonitis, without perforation or gangrene (2) RLQ abdominal pain Code(s): R10.31 - RIGHT LOWER QUADRANT PAIN (3) Nausea & vomiting Code(s): R11.2 - NAUSEA WITH VOMITING, UNSPECIFIED Qualifiers: Vomiting type: unspecified Vomiting Intractability: non-intractable Qualified Code(s): R11.2 - Nausea with vomiting, unspecified (4) ESRD on hemodialysis Assessment/Plan: HD in am Code(s): N18.6 - END STAGE RENAL DISEASE; Z99.2 - DEPENDENCE ON RENAL DIALYSIS (5) Hypertension Assessment/Plan: continue home meds Code(s): I10 - ESSENTIAL (PRIMARY) HYPERTENSION Qualifiers: Hypertension type: unspecified Qualified Code(s): I10 - Essential (primary ) hypertension
[2018-08-25 19:13] LABS: INR 1.02 (0.83-1.09)
[2018-08-25 19:16] LABS: ACTIVATED PTT 24.7 SECONDS (25.2-36.5)
[2018-08-25] MEDS ORDERED: BUPIVACAINE HCL/PF 0.5% (5MG/ML) 10 ML VIAL ONE (19:48)
[2018-08-25] MEDS ORDERED: BENZOIN TINCTURE SWABSTICK TP ONE (19:48)
[2018-08-25] MEDS ORDERED: CEFOXITIN SODIUM 2 GM IVPB ONE (20:05)
[2018-08-25] MEDS ORDERED: MIDAZOLAM HCL 2 MG/2 ML SINGLE DOSE VIAL ONE (20:16)
[2018-08-25] MEDS ORDERED: PROPOFOL 20 ML ONE (20:16)
[2018-08-25] MEDS ORDERED: ROCURONIUM BROMIDE 50 MG/5 ML VIAL ONE (20:16)
--- NOTE | 2018-08-25 20:31 | CONS ---
DATE OF CONSULTATION: 08/25/2018 HISTORY OF PRESENT ILLNESS: This is a 32-year-old woman with end-stage renal disease. She has been on dialysis now for the last 6 years via left AV fistula. She comes to the ER complaining of abdominal pain with nausea, vomiting, and diarrhea. This has been for the last 48 hours. She had a CAT scan done in the emergency room that showed acute appendicitis. There was no intraluminal air or abscess formation. She denies any fevers. She notes she has been having chills. There is no history of any travel or other sick contacts. PAST MEDICAL HISTORY: Notable for hypertension and dialysis for the last 6 years. SURGICAL HISTORY: Notable for 3 C-sections. She has 3 children, ages 18, 16, and 14. ALLERGIES: No known drug allergies. MEDICATION: She says are metoprolol, lisinopril, and amlodipine. REVIEW OF SYSTEMS: Notable for abdominal pain, nausea, vomiting, diarrhea, and chills. She has no chest pain. She has no back pain. She has no skin rash or dysuria. PHYSICAL EXAMINATION: GENERAL: She is awake and alert. VITAL SIGNS: Temperature 98.3, pulse 82, blood pressure 159/98, respiratory rate 16. She is saturating 100%. She is a comfortable appearing young lady in no acute distress. HEENT: Normocephalic. Eyes are anicteric. NECK: Supple. LUNGS: Clear to auscultation. HEART: Regular rate and rhythm. ABDOMEN: Soft. She has right lower quadrant tenderness extending about half the way up her right side on palpation. EXTREMITIES: Without edema. She has no rash. She has a left AV fistula with a good thrill. LABORATORY: Notable for white count of 12.9, hemoglobin 12.4, platelets of 174, BUN and creatinine are 50 and 9.6, LFTs are normal. IMPRESSION: In summary, she is a young woman with end-stage renal disease who has acute appendicitis. She received a dose of Zosyn in the emergency room. Blood cultures were drawn. It does not appear to be perforated. I discussed the case with the surgeon, Dr. Jimenez. She is to receive cefoxitin 1 g at the time of surgery, and she will get dialyzed tomorrow. The cefoxitin half life is quite long, so further need for antibiotics to be determined by operative findings. Aidan [id number]
[2018-08-25] MEDS ORDERED: LIDOCAINE HCL/PF 2% SDV 5ML VIAL ONE (22:49)
[2018-08-25] MEDS ORDERED: cefOXitin SODIUM 1 GM VIAL (RESTRICTED TO ID) IVPB ONE (23:00)
[2018-08-25] MEDS ORDERED: DEXAMETHASONE SOD PHOSPHATE 4 MG/1 ML VIAL ONE (23:33)
[2018-08-25] MEDS ORDERED: METOPROLOL TARTRATE 5 MG/5 ML VIAL ONE (23:43)
[2018-08-26] MEDS ORDERED: NEOSTIGMINE METHYLSULFATE 0.5 MG/ML - 10 ML MDV ONE (00:15)
[2018-08-26] MEDS ORDERED: GLYCOPYRROLATE 0.2 MG/1 ML VIAL ONE (00:15)
[2018-08-26] MEDS ORDERED: METOPROLOL TARTRATE 5 MG/5 ML VIAL ONE (00:31)
[2018-08-26] MEDS ORDERED: ACETAMINOPHEN INJECTION 100 ML IVPB ONE (00:48)
[2018-08-26] MEDS ORDERED: LABETALOL HCL 5 MG/1 ML (100MG/20 ML VIAL) IVPUSH ONE (00:49)
[2018-08-26] MEDS ORDERED: ACETAMINOPHEN 1000 MG/100 ML VIAL (NON FORMULARY) IVPB ONE (00:49)
[2018-08-26] MEDS ORDERED: HYDROmorphone HCL CARPU-JECT 2 MG/1 ML DISP.SYRIN IVPUSH ONE (00:51)
--- NOTE | 2018-08-26 00:53 | OP ---
Operative Note - Note: Operative Date: 08/25/18 (completed 08/26/18) Pre-Operative Diagnosis: acute appendicitis with localized peritonitis Operation: laparoscopic appendectomy with primary umbilical (incisional) hernia repair Findings: umbilical incisional hernia noted on supraumbilical entry, required repair on way out with extra stitch (fat only reduced); enlarged, inflamed, firm appendix with yellow/purulent fluid in RLQ and pelvis, suctioned Post-Operative Diagnosis: Other (same as preop with umbilical incisional hernia) Surgeon: Daryn Jimenez Anesthesiologist/ASSET PROTECTION ASSISTANT: Shane Campuzano Anesthesia: General, Local (10ml 0.5% marcaine) Specimens Removed: appendix to pathology Estimated Blood Loss (mls): 10 Drains & Tubes with Location: Gallegos out at case end Drains, Volume Out (mls): 0 (some in tubing, not bag (HD pt)) Fluid Volume Replaced (mls): 200 (crystalloid) Operative Report Dictated: Yes
[2018-08-26] MEDS ORDERED: oxyCODONE HCL 5 MG TABLET PO PRN (00:56)
[2018-08-26] MEDS ORDERED: SODIUM CHLORIDE 1,000 ML IV SCH ×2 (00:58→01:22)
[2018-08-26] MEDS ORDERED: HYDROmorphone HCl 2 MG/ML VIAL ONE (01:10)
[2018-08-26] MEDS ORDERED: ONDANSETRON 4 MG/2 ML VIAL IVPUSH PRN (01:22)
[2018-08-26] MEDS ORDERED: PIPERACILLIN/TAZOB 2.25 GM 2.25 GM in DEXTROSE 5%-WATER - 50 ML IVPB SCH (02:00)
[2018-08-26] MEDS ORDERED: DEXTROSE 5%-WATER - 50 ML IVPB ONE ×3 (05:19→16:53)
[2018-08-26] MEDS ORDERED: PIPERACILLIN/TAZOBACTAM 2.25 GM VIAL IVPB ONE ×3 (05:19→16:53)
[2018-08-26] MEDS: PIPERACILLIN/TAZOB 2.25 GM 2.25 GM in DEXTROSE 5%-WATER - 50 ML IVPB SCH ×2 (05:21→10:16)
[2018-08-26] MEDS ORDERED: SEVELAMER HCL 1600 MG PO SCH (06:00)
[2018-08-26] MEDS: ACETAMINOPHEN 325 MG TABLET (FP) PO SCH ×3 (06:53→19:02)
[2018-08-26] MEDS ORDERED: ACETAMINOPHEN 325 MG TABLET (FP) PO SCH (07:00)
[2018-08-26 07:30] LABS: HEMATOCRIT 30.9 % (32.4-45.2); LYMPH % 4.6 % (8-40); MCH 36.4 pg (25.7-33.7); MCHC 35.5 g/dl (32.0-36.0); MEAN CELL VOLUME 102.3 fl (80-96); MEAN PLT VOLUME 9.1 fl (7.5-11.1); MONO % 1.8 % (3.8-10.2); NEUT % 93.6 % (42.8-82.8); PLATELET COUNT 134 K/MM3 (134-434); RBC 3.02 M/mm3 (3.60-5.2); RDW 14.8 % (11.6-15.6)
[2018-08-26 08:37] LABS: ALBUMIN 3.1 g/dl (3.4-5.0); ALK PHOS 51 U/L (45-117); ANION GAP 9 MMOL/L (8-16); BILIRUBIN,TOTAL 0.4 mg/dL (0.2-1); BLOOD UREA NITROGEN 61 mg/dL (7-18); CALCIUM 8.3 mg/dL (8.5-10.1); CHLORIDE 101 mmol/L (98-107); CO2 22 mmol/L (21-32); GLUCOSE,RANDOM 118 mg/dL (74-106); MAGNESIUM 2.8 mg/dL (1.8-2.4); PHOSPHOROUS 6.9 mg/dL (2.5-4.9); SGOT/AST 7 U/L (15-37); SGPT/ALT 20 U/L (13-61); SODIUM 132 mmol/L (136-145); TOT PROT 6.2 g/dl (6.4-8.2)
[2018-08-26 08:38] LABS: CREATININE 11.7 mg/dL (0.55-1.3)
[2018-08-26 08:39] LABS: POTASSIUM 6.3 mmol/L (3.5-5.1)
--- NOTE | 2018-08-26 09:03 | PN ---
Progress Note (short form) - Note Progress Note: Anesthesia postop note 32 y/o F s/p GA for laparoscopic appendectomy POD#1, vss, aaox3, no complaints, to have HD this am. No anesthesia complications.
[2018-08-26] MEDS ORDERED: PANTOPRAZOLE SODIUM 40 MG VIAL IVPUSH SCH (10:00)
[2018-08-26] MEDS ORDERED: METOPROLOL TARTRATE 50 MG TABLET (FP) PO SCH (10:00)
[2018-08-26] MEDS ORDERED: LISINOPRIL 20 MG TABLET (FP) PO SCH (10:00)
[2018-08-26] MEDS ORDERED: amLODIPine BESYLATE 10 MG TABLET (FP) PO SCH (10:00)
[2018-08-26] MEDS: oxyCODONE HCL 5 MG TABLET PO PRN ×2 (10:15→21:33)
--- NOTE | 2018-08-26 10:50 | EKG ---
Test Reason : Blood Pressure : / mmHG Vent. Rate : 068 BPM Atrial Rate : 068 BPM P-R Int : 144 ms QRS Dur : 082 ms QT Int : 400 ms P-R-T Axes : 049 069 044 degrees QTc Int : 425 ms NORMAL SINUS RHYTHM POSSIBLE LEFT ATRIAL ENLARGEMENT BORDERLINE ECG WHEN COMPARED WITH ECG OF 25-AUG-2018 10:01, NO SIGNIFICANT CHANGE WAS FOUND Confirmed by BRITTON ROSADO MD ([id number]) on 08/26/2018 10:50:00 AM Referred By: Confirmed By:BRITTON ROSADO MD
--- NOTE | 2018-08-26 10:54 | EKG ---
Test Reason : Blood Pressure : / mmHG Vent. Rate : 079 BPM Atrial Rate : 079 BPM P-R Int : 140 ms QRS Dur : 080 ms QT Int : 378 ms P-R-T Axes : 061 058 047 degrees QTc Int : 433 ms NORMAL SINUS RHYTHM POSSIBLE LEFT ATRIAL ENLARGEMENT BORDERLINE ECG WHEN COMPARED WITH ECG OF 02-NOV-2017 17:30, NO SIGNIFICANT CHANGE WAS FOUND Confirmed by BRITTON ROSADO MD ([id number]) on 08/26/2018 10:54:03 AM Referred By: Confirmed By:BRITTON ROSADO MD
[2018-08-26 11:14] LABS: ANISOCYTOSIS 0; MACROCYTOSIS 1+; PLATELET ESTIMATE DECREASED
[2018-08-26] MEDS ORDERED: SODIUM CHLORIDE 250 ML IV PRN ×2 (12:51→19:41)
[2018-08-26] MEDS: SEVELAMER CARBONATE 800 MG TAB (FP) PO SCH ×3 (13:35→17:46)
[2018-08-26] MEDS: PANTOPRAZOLE SODIUM 40 MG VIAL IVPUSH SCH ×2 (13:36→16:11)
[2018-08-26] MEDS: METOPROLOL TARTRATE 50 MG TABLET (FP) PO SCH ×3 (13:36→21:33)
[2018-08-26] MEDS: amLODIPine BESYLATE 10 MG TABLET (FP) PO SCH ×2 (13:36→16:11)
[2018-08-26] MEDS: LISINOPRIL 20 MG TABLET (FP) PO SCH ×2 (13:36→16:11)
[2018-08-26] MEDS ORDERED: oxyCODONE HCL 5 MG TABLET PO ONE (13:48)
--- NOTE | 2018-08-26 14:38 | PN ---
Progress Note (short form) - Note Progress Note: Renal follow up for ESRD on HD Pt seen and examined during dialysis having a lot of abd pain, No N/V no fever or chills BP stable, UF goal ~2L pt to be taken off dialysis 30 minutes early Vital Signs Temperature 98.8 F 08/26/18 08:00 Pulse Rate 80 08/26/18 12:30 Respiratory Rate 18 08/26/18 12:30 Blood Pressure 146/92 08/26/18 12:30 O2 Sat by Pulse Oximetry (%) 99 08/26/18 02:45 Intake & Output 08/23/18 08/24/18 08/25/18 08/26/18 23:59 23:59 23:59 23:59 Intake Total 350 290 Output Total 10 Balance 340 290 Weight 58.967 kg 58.967 kg Moderate distress from pain Abd incisions sites with clean dressings CBC, BMP 08/26/18 06:00 08/26/18 06:00 Current Medications Acetaminophen (Tylenol -) 650 mg PO Q6H [facility] Last Admin: 08/26/18 13:37 Dose: 650 mg Amlodipine Besylate (Norvasc -) 10 mg PO DAILY [facility] Last Admin: 08/26/18 13:36 Dose: Not Given Sodium Chloride (Normal Saline -) 1,000 mls @ 60 mls/hr IV ASDIR [facility] Last Admin: 08/26/18 05:51 Dose: Not Given Piperacillin Sod/Tazobactam (Sod 2.25 gm/ Dextrose) 50 mls @ 100 mls/hr IVPB Q8H-IV [facility]; Protocol Stop: 08/27/18 01:59 Last Admin: 08/26/18 10:16 Dose: 100 mls/hr Lisinopril (Prinivil) 20 mg PO DAILY [facility] Last Admin: 08/26/18 13:36 Dose: Not Given Metoprolol Tartrate (Lopressor -) 50 mg PO BID [facility] Last Admin: 08/26/18 13:36 Dose: Not Given Ondansetron HCl (Zofran Injection) 4 mg IVPUSH Q6H PRN PRN Reason: NAUSEA AND/OR VOMITING Oxycodone HCl (Roxicodone -) 5 mg PO Q6H PRN PRN Reason: PAIN LEVEL 7 - 10 Last Admin: 08/26/18 10:15 Dose: 5 mg Pantoprazole Sodium (Protonix Iv) 40 mg IVPUSH DAILY [facility] Last Admin: 08/26/18 13:36 Dose: Not Given Sevelamer Carbonate (Renvela -) 1,600 mg PO TIDCM [facility] Last Admin: 08/26/18 13:36 Dose: Not Given 32 year old woman with hx of ESRD on HD (x 6 years), Hypertension who presented with complaints of N/V x 1 day. #ESRD on HD #Hypertension #Renal Osteodystrophy #Acute Appendicitis #Hyperkalemia s/p Lap appendectomy yesterday tolerated dialysis well but discontinued early due to pain pain control as per surgical team would avoid NSAIDs given pt has residual renal function Expect hyperkalemia to resolve s/p dialysis Check BMP in AM Renal diet when tolerated Haseeb Alejandro DO
--- NOTE | 2018-08-26 15:04 | PN ---
Physical Exam: SUBJECTIVE: Patient seen and examined c/o of abdominal pain OBJECTIVE: Vital Signs Period Temp Pulse Resp BP Sys/House Pulse Ox Last 24 Hr 98.2 F-99.0 F 65-96 16-26 109-166/67-106 96-100 GENERAL: The patient is awake, alert, and fully oriented, in no acute distress. HEAD: Normal with no signs of trauma. LUNGS: Breath sounds equal, clear to auscultation bilaterally, no wheezes, no crackles, no accessory muscle use. HEART: Regular rate and rhythm, S1, S2 without murmur, rub or gallop. ABDOMEN:with laproscopic incisions; clean dry and intact EXTREMITIES: 2+ pulses, warm, well-perfused, no edema. NEUROLOGICAL: Cranial nerves II through XII grossly intact. Normal speech, gait not observed. PSYCH: Normal mood, normal affect. SKIN: Warm, dry, normal turgor, no rashes or lesions noted Laboratory Results - last 24 hr 08/25/18 08/25/18 08/25/18 12:48 18:07 19:30 WBC RBC Hgb Hct MCV MCH MCHC RDW Plt Count MPV Absolute Neuts (auto) Neutrophils % Neutrophils % (Manual) Band Neutrophils % Lymphocytes % Lymphocytes % (Manual) Monocytes % Monocytes % (Manual) Eosinophils % Eosinophils % (Manual) Basophils % Basophils % (Manual) Myelocytes % (Man) Promyelocytes % (Man) Blast Cells % (Manual) Nucleated RBC % Metamyelocytes Hypochromia Platelet Estimate Polychromasia Poikilocytosis Anisocytosis Microcytosis Macrocytosis PT with INR 12.00 INR 1.02 PTT (Actin FS) 24.7 L Sodium Potassium Chloride Carbon Dioxide Anion Gap BUN Creatinine Creat Clearance w eGFR Random Glucose Calcium Phosphorus Magnesium Total Bilirubin AST ALT Alkaline Phosphatase Total Protein Albumin Beta HCG, Quant 1.0 Blood Type A POSITIVE Antibody Screen Negative 08/26/18 08/26/18 06:00 06:00 WBC 10.0 RBC 3.02 L Hgb 11.0 Hct 30.9 L MCV 102.3 H MCH 36.4 H MCHC 35.5 RDW 14.8 Plt Count 134 D MPV 9.1 Absolute Neuts (auto) 9.3 H Neutrophils % 93.6 H Neutrophils % (Manual) 90.8 H Band Neutrophils % 0.0 Lymphocytes % 4.6 L Lymphocytes % (Manual) 7.2 L Monocytes % 1.8 L Monocytes % (Manual) 2 L Eosinophils % 0.0 D Eosinophils % (Manual) 0.0 Basophils % 0.0 Basophils % (Manual) 0.0 Myelocytes % (Man) 0 Promyelocytes % (Man) 0 Blast Cells % (Manual) 0 Nucleated RBC % 0 Metamyelocytes 0 Hypochromia 0 Platelet Estimate Decreased Polychromasia 0 Poikilocytosis 0 Anisocytosis 0 Microcytosis 0 Macrocytosis 1+ PT with INR INR PTT (Actin FS) Sodium 132 L Potassium 6.3 H* Chloride 101 Carbon Dioxide 22 Anion Gap 9 BUN 61 H Creatinine 11.7 H* Creat Clearance w eGFR 3.71 Random Glucose 118 H Calcium 8.3 L Phosphorus 6.9 H Magnesium 2.8 H Total Bilirubin 0.4 AST 7 L ALT 20 Alkaline Phosphatase 51 Total Protein 6.2 L Albumin 3.1 L Beta HCG, Quant Blood Type Antibody Screen Active Medications Generic Name Dose Route Start Last Admin Trade Name Freq PRN Reason Stop Dose Admin Acetaminophen 650 mg 08/26/18 07:00 08/26/18 13:37 Tylenol - PO 650 mg Q6H [facility] Administration Amlodipine Besylate 10 mg 08/26/18 10:00 08/26/18 13:36 Norvasc - PO Not Given [facility]ILY [facility] Sodium Chloride 1,000 mls @ 60 mls/hr 08/26/18 01:22 08/26/18 05:51 Normal Saline - IV Not Given ASDIR [facility] Piperacillin Sod/Tazobactam 50 mls @ 100 mls/hr 08/26/18 02:00 08/26/18 10:16 Sod 2.25 gm/ Dextrose IVPB 08/27/18 01:59 100 mls/hr Q8H-IV [facility] Administration Protocol Lisinopril 20 mg 08/26/18 10:00 08/26/18 13:36 Prinivil PO Not Given DAILY [facility] Metoprolol Tartrate 50 mg 08/26/18 10:00 08/26/18 13:36 Lopressor - PO Not Given BID [facility] Ondansetron HCl 4 mg 08/26/18 01:22 Zofran Injection IVPUSH Q6H PRN NAUSEA AND/OR VOMITING Oxycodone HCl 5 mg 08/26/18 01:22 08/26/18 10:15 Roxicodone - PO 5 mg Q6H PRN Administration PAIN LEVEL 7 - 10 Pantoprazole Sodium 40 mg 08/26/18 10:00 08/26/18 13:36 Protonix Iv IVPUSH Not Given DAILY [facility] Sevelamer Carbonate 1,600 mg 08/26/18 08:00 08/26/18 13:36 Renvela - PO Not Given TIDCM [facility] ASSESSMENT/PLAN: This is a 32 year old female with a history of renal osteodystrophy and ESRD on HD, htn, who presents with n/v/d, found to have acute appendicitis. #acute appendicitis' POD #1 appendectomy -blood cultures -IV antibiotic zosyn -as per surgery note; yellow/purulent fluid in RLQ and pelvis that was suctioned #ESRD: -HD yesterday -Dr. Alejandro following #HTN: -will hold antihypertensive for now as patient is getting HD and plan for sx #hyperkalemia; with ESRD; -ecg stable -labs drawn before dialysis; will repeat bmp in am #IVF: hx of esrd; gentle hydration #DIET: npo for sx VTE: scd GI: protonix Disposition: inpatient med surg Visit type - Emergency Visit Emergency Visit: Yes ED Registration Date: 08/25/18 Care time: The patient presented to the Emergency Department on the above date and was hospitalized for further evaluation of their emergent condition. - New Patient This patient is new to me today: No - Critical Care Critical Care patient: No
--- NOTE | 2018-08-26 15:42 | PN ---
Teaching Attending Note Name of Resident: Mavis Cross ATTENDING PHYSICIAN STATEMENT I saw and evaluated the patient. I reviewed the resident's note and discussed the case with the resident. I agree with the resident's findings and plan as documented with exceptions below. SUBJECTIVE: Patient seen and examined. Getting HD, reports some abdominal pain, no nausea, vomiting or new concerns. OBJECTIVE: Vital Signs Period Temp Pulse Resp BP Sys/House Pulse Ox Last 24 Hr 98.2 F-99.0 F 65-96 16-26 109-166/67-106 96-100 Intake & Output 08/23/18 08/24/18 08/25/18 08/26/18 23:59 23:59 23:59 23:59 Intake Total 350 290 Output Total 10 Balance 340 290 Weight 130 lb 130 lb General: sitting in bed in no acute distress Chest: CTAB, no rales or wheezing Abdomen;soft, RLQ and epigastric tenderness, positive bowel sounds, ND, no voluntary or involuntary guarding or rigidity Extremities: no edema Home Medications Medication Instructions Recorded Amlodipine Besylate [Norvasc -] 10 mg PO DAILY #0 tablet 06/02/13 Furosemide [Lasix -] 40 mg PO DAILY #0 tablet 06/02/13 Lisinopril [Prinivil] 20 mg PO DAILY #0 tablet 06/02/13 Sevelamer HCl [Renagel] 1,600 mg PO TID #0 tablet 06/02/13 Metoprolol Tartrate 50 mg PO BID 08/26/18 Active Medications Acetaminophen (Tylenol -) 650 mg PO Q6H [facility] Last Admin: 08/26/18 13:37 Dose: 650 mg Amlodipine Besylate (Norvasc -) 10 mg PO DAILY [facility] Last Admin: 08/26/18 13:36 Dose: Not Given Piperacillin Sod/Tazobactam (Sod 2.25 gm/ Dextrose) 50 mls @ 100 mls/hr IVPB Q8H-IV [facility]; Protocol Stop: 08/27/18 01:59 Last Admin: 08/26/18 10:16 Dose: 100 mls/hr Lisinopril (Prinivil) 20 mg PO DAILY [facility] Last Admin: 08/26/18 13:36 Dose: Not Given Metoprolol Tartrate (Lopressor -) 50 mg PO BID [facility] Last Admin: 08/26/18 13:36 Dose: Not Given Ondansetron HCl (Zofran Injection) 4 mg IVPUSH Q6H PRN PRN Reason: NAUSEA AND/OR VOMITING Oxycodone HCl (Roxicodone -) 5 mg PO Q6H PRN PRN Reason: PAIN LEVEL 7 - 10 Last Admin: 08/26/18 10:15 Dose: 5 mg Pantoprazole Sodium (Protonix Iv) 40 mg IVPUSH DAILY [facility] Last Admin: 08/26/18 13:36 Dose: Not Given Sevelamer Carbonate (Renvela -) 1,600 mg PO TIDCM [facility] Last Admin: 08/26/18 13:36 Dose: Not Given Laboratory Results - last 24 hr 08/25/18 08/25/18 08/26/18 18:07 19:30 06:00 WBC 10.0 RBC 3.02 L Hgb 11.0 Hct 30.9 L MCV 102.3 H MCH 36.4 H MCHC 35.5 RDW 14.8 Plt Count 134 D MPV 9.1 Absolute Neuts (auto) 9.3 H Neutrophils % 93.6 H Neutrophils % (Manual) 90.8 H Band Neutrophils % 0.0 Lymphocytes % 4.6 L Lymphocytes % (Manual) 7.2 L Monocytes % 1.8 L Monocytes % (Manual) 2 L Eosinophils % 0.0 D Eosinophils % (Manual) 0.0 Basophils % 0.0 Basophils % (Manual) 0.0 Myelocytes % (Man) 0 Promyelocytes % (Man) 0 Blast Cells % (Manual) 0 Nucleated RBC % 0 Metamyelocytes 0 Hypochromia 0 Platelet Estimate Decreased Polychromasia 0 Poikilocytosis 0 Anisocytosis 0 Microcytosis 0 Macrocytosis 1+ PT with INR 12.00 INR 1.02 PTT (Actin FS) 24.7 L Sodium Potassium Chloride Carbon Dioxide Anion Gap BUN Creatinine Creat Clearance w eGFR Random Glucose Calcium Phosphorus Magnesium Total Bilirubin AST ALT Alkaline Phosphatase Total Protein Albumin Blood Type A POSITIVE Antibody Screen Negative 08/26/18 08/26/18 06:00 14:16 WBC RBC Hgb Hct MCV MCH MCHC RDW Plt Count MPV Absolute Neuts (auto) Neutrophils % Neutrophils % (Manual) Band Neutrophils % Lymphocytes % Lymphocytes % (Manual) Monocytes % Monocytes % (Manual) Eosinophils % Eosinophils % (Manual) Basophils % Basophils % (Manual) Myelocytes % (Man) Promyelocytes % (Man) Blast Cells % (Manual) Nucleated RBC % Metamyelocytes Hypochromia Platelet Estimate Polychromasia Poikilocytosis Anisocytosis Microcytosis Macrocytosis PT with INR INR PTT (Actin FS) Sodium 132 L 140 Potassium 6.3 H* 2.8 L* Chloride 101 101 Carbon Dioxide 22 31 Anion Gap 9 7 L BUN 61 H 12 Creatinine 11.7 H* 2.9 H Creat Clearance w eGFR 3.71 18.58 Random Glucose 118 H 137 H Calcium 8.3 L 8.7 Phosphorus 6.9 H Magnesium 2.8 H Total Bilirubin 0.4 AST 7 L ALT 20 Alkaline Phosphatase 51 Total Protein 6.2 L Albumin 3.1 L Blood Type Antibody Screen ASSESSMENT AND PLAN: 32 yof with ESRD on HD, HTN, renal osteodystrophy with acute appendicitis -Acute suppurative appendicitis s/p lap appendectomy -Hyperkalemia -ESRD on HD -HTN -Renal osteodystrophy Plan: s/p HD today. Monitor K levels. PO per surgery. Incentive spirometry. Follow up wound cx. Zosyn for now. Follow up blood cx. Amlodipine/lisinopril/metoprolol. DVTPPX per surgery. dispo in 1-2 days pending clinical improvement and surgical recs. Plan discussed with patient and nursing, all questions answered.
[2018-08-26 15:47] LABS: ANION GAP 7 MMOL/L (8-16); BLOOD UREA NITROGEN 12 mg/dL (7-18); CALCIUM 8.7 mg/dL (8.5-10.1); CHLORIDE 101 mmol/L (98-107); CO2 31 mmol/L (21-32); CREATININE 2.9 mg/dL (0.55-1.3); GLUCOSE,RANDOM 137 mg/dL (74-106); SODIUM 140 mmol/L (136-145)
[2018-08-26 15:53] LABS: POTASSIUM 2.8 mmol/L (3.5-5.1)
--- NOTE | 2018-08-26 17:13 | PN ---
Progress Note, Physician History of Present Illness: Pt s/p lap appy with umbilical/incisional hernia repair overnight for acute appendicitis, with purulent fluid noted in pelvis and RLQ. Feeling better, but had some pain earlier and HD was stopped a bit early, though 1.7L fluid was removed. She has ambulated, tolerating some diet, now hungry. Pain medication is helping when she gets it but is taking oxycodone between tylenol, so may need small Rx for narcotic combo on d/c home. No flatus or BM yet. Seen and examined in her room with family at bedside. Daughter facilitated conversation with regard to [place] and postop instructions reviewed with her and patient. Overall she feels better, but still has some pain RLQ and incisional. - Current Medication List Current Medications: Active Medications Acetaminophen (Tylenol -) 650 mg PO Q6H [facility] Last Admin: 08/26/18 13:37 Dose: 650 mg Amlodipine Besylate (Norvasc -) 10 mg PO DAILY [facility] Last Admin: 08/26/18 16:11 Dose: 10 mg Piperacillin Sod/Tazobactam (Sod 2.25 gm/ Dextrose) 50 mls @ 100 mls/hr IVPB Q8H-IV [facility]; Protocol Stop: 08/27/18 01:59 Last Admin: 08/26/18 10:16 Dose: 100 mls/hr Lisinopril (Prinivil) 20 mg PO DAILY [facility] Last Admin: 08/26/18 16:11 Dose: 20 mg Metoprolol Tartrate (Lopressor -) 50 mg PO BID [facility] Last Admin: 08/26/18 16:11 Dose: 50 mg Ondansetron HCl (Zofran Injection) 4 mg IVPUSH Q6H PRN PRN Reason: NAUSEA AND/OR VOMITING Oxycodone HCl (Roxicodone -) 5 mg PO Q6H PRN PRN Reason: PAIN LEVEL 7 - 10 Last Admin: 08/26/18 10:15 Dose: 5 mg Pantoprazole Sodium (Protonix Iv) 40 mg IVPUSH DAILY [facility] Last Admin: 08/26/18 16:11 Dose: 40 mg Sevelamer Carbonate (Renvela -) 1,600 mg PO TIDCM [facility] Last Admin: 08/26/18 13:36 Dose: Not Given - Objective Vital Signs: Vital Signs Temperature 98.4 F 08/26/18 14:00 Pulse Rate 88 08/26/18 14:00 Respiratory Rate 20 08/26/18 14:00 Blood Pressure 151/84 08/26/18 14:00 O2 Sat by Pulse Oximetry (%) 99 08/26/18 02:45 Constitutional: Yes: Well Nourished, No Distress, Calm Eyes: Yes: Conjunctiva Clear, EOM Intact HENT: Yes: Atraumatic, Normocephalic Gastrointestinal: Yes: Soft, Distention (mild), Tenderness (R mid/lateral abdomen, less RLQ; incisional, mostly umbilical, appropriate for postop). No: Tenderness, Epigastrium, Tenderness, Rebound Genitourinary: Yes: Anuria (no urine yet) Extremities: No: Cool, Cyanosis Integumentary: Yes: Incision (x3 dressed). No: Jaundice, Rash Wound/Incision: Yes: Steri Strips (under dressings), Dressing Dry and Intact (x3 ). No: Dressing Removed Neurological: Yes: Alert, Oriented Labs: CBC, BMP 08/26/18 06:00 08/26/18 14:16 BMP is from immediately post HD today - discussed with Dr. Javon Matthew result likely artificially a bit low Problem List - Problems (1) Acute appendicitis with localized peritonitis, without perforation or abscess Assessment/Plan: POD 0/1 s/p laparoscopic appendectomy with primary umbilical/incisional hernia repair with findings of purulent fluid in RLQ and pelvis doing well overall probably a bit dry after HD, encouraged to drink fluids ad taylor IVF and antibiotics stopped (had 3 doses postop, discussed with Dr. Bae) pain meds working - scheduled tylenol q6h, prn oxycodone for breakthrough no ibuprofen because of residual renal function using some narcotics, so may benefit from small Rx Percocet at d/c home, depending on how she feels tomorrow advised to use stool softener bid if she does use narcotic combo at home to avoid constipation ambulating, tolerating diet no bowel function yet, no urine yet incisions with dressings c/d/i ok from surgery standpoint for d/c home with lifting restrictions to f/u in 2 wks instructions in d/c plan will stay till tomorrow for short HD in am per renal primary team informed Code(s): K35.30 - ACUTE APPENDICITIS WITH LOC PERITONITIS, W/O PERF OR GANGR Qualifiers: Appendicitis gangrene presence: without gangrene Qualified Code(s): K35.30 - Acute appendicitis with localized peritonitis, without perforation or gangrene (2) RLQ abdominal pain Assessment/Plan: improved Code(s): R10.31 - RIGHT LOWER QUADRANT PAIN (3) Nausea & vomiting Assessment/Plan: improved, resolved Code(s): R11.2 - NAUSEA WITH VOMITING, UNSPECIFIED Qualifiers: Vomiting type: unspecified Vomiting Intractability: non-intractable Qualified Code(s): R11.2 - Nausea with vomiting, unspecified (4) ESRD on hemodialysis Assessment/Plan: for short run in am, no fluid removal, heparin free (for a week, per renal) discussed with Dr. Alejandro then should be good for d/c home, back to usual HD schedule MWF Code(s): N18.6 - END STAGE RENAL DISEASE; Z99.2 - DEPENDENCE ON RENAL DIALYSIS (5) Hypertension Assessment/Plan: continue home meds Code(s): I10 - ESSENTIAL (PRIMARY) HYPERTENSION Qualifiers: Hypertension type: unspecified Qualified Code(s): I10 - Essential (primary ) hypertension
[2018-08-27] MEDS: ACETAMINOPHEN 325 MG TABLET (FP) PO SCH ×2 (01:00→06:37)
[2018-08-27 07:39] LABS: BASO % 0.5 % (0-2.0); HEMATOCRIT 30.5 % (32.4-45.2); HEMOGLOBIN 10.7 GM/dL (10.7-15.3); MCH 36.8 pg (25.7-33.7); MCHC 35.2 g/dl (32.0-36.0); MEAN CELL VOLUME 104.4 fl (80-96); MEAN PLT VOLUME 9.5 fl (7.5-11.1); MONO % 7.8 % (3.8-10.2); NEUT % 65.7 % (42.8-82.8); PLATELET COUNT 136 K/MM3 (134-434); RBC 2.92 M/mm3 (3.60-5.2); RDW 15.1 % (11.6-15.6); WHITE BLOOD COUNT 7.1 K/mm3 (4.0-10.0)
[2018-08-27 08:13] LABS: ANION GAP 9 MMOL/L (8-16); BLOOD UREA NITROGEN 30 mg/dL (7-18); CALCIUM 8.7 mg/dL (8.5-10.1); CHLORIDE 99 mmol/L (98-107); CO2 30 mmol/L (21-32); GLUCOSE,RANDOM 90 mg/dL (74-106); MAGNESIUM 1.9 mg/dL (1.8-2.4); PHOSPHOROUS 6.3 mg/dL (2.5-4.9); POTASSIUM 3.8 mmol/L (3.5-5.1); SODIUM 137 mmol/L (136-145)
[2018-08-27 08:28] LABS: CREATININE 7.5 mg/dL (0.55-1.3)
[2018-08-27] MEDS ORDERED: PANTOPRAZOLE 40 MG TABLET (FP) PO SCH (10:00)
[2018-08-27 10:19] VITALS: TEMP 98.1
[2018-08-27] MEDS: METOPROLOL TARTRATE 50 MG TABLET (FP) PO SCH (11:33)
[2018-08-27] MEDS: amLODIPine BESYLATE 10 MG TABLET (FP) PO SCH (11:33)
[2018-08-27] MEDS: LISINOPRIL 20 MG TABLET (FP) PO SCH (11:33)
[2018-08-27] MEDS: SEVELAMER CARBONATE 800 MG TAB (FP) PO SCH (11:34)
--- NOTE | 2018-08-27 11:43 | PN ---
Teaching Attending Note Name of Resident: Mavis Cross ATTENDING PHYSICIAN STATEMENT I saw and evaluated the patient. I reviewed the resident's note and discussed the case with the resident. I agree with the resident's findings and plan as documented with exceptions below. SUBJECTIVE: Patient seen and examined. Pain better, tolerating diet, no complaints. getting HD. OBJECTIVE: Vital Signs Period Temp Pulse Resp BP Sys/House Pulse Ox Last 24 Hr 98.1 F-98.8 F 57-89 16-20 98-159/58-99 97 Intake & Output 08/24/18 08/25/18 08/26/18 08/27/18 23:59 23:59 23:59 23:59 Intake Total 350 340 200 Output Total 10 Balance 340 340 200 Weight 130 lb 130 lb 134 lb 9.6 oz General: sitting in bed in no acute distress Chest: CTAB, no rales or wheezing Abdomen:Soft, minimal tenderness around laparoscopic sites, normoactive bowel sounds, No voluntary or involuntary guarding, ND Extremities: no edema Home Medications Medication Instructions Recorded Amlodipine Besylate [Norvasc -] 10 mg PO DAILY #0 tablet 06/02/13 Lisinopril [Prinivil] 20 mg PO DAILY #0 tablet 06/02/13 Sevelamer HCl [Renagel] 1,600 mg PO TID #0 tablet 06/02/13 Metoprolol Tartrate 50 mg PO BID 08/26/18 Active Medications Acetaminophen (Tylenol -) 650 mg PO Q6H [facility] Last Admin: 08/27/18 06:37 Dose: 650 mg Amlodipine Besylate (Norvasc -) 10 mg PO DAILY [facility] Last Admin: 08/27/18 11:33 Dose: 10 mg Sodium Chloride (Normal Saline -) 250 mls @ 3,000 mls/hr IV PRN PRN PRN Reason: Hypotension during Dialysis Stop: 08/27/18 19:42 Lisinopril (Prinivil) 20 mg PO DAILY [facility] Last Admin: 08/27/18 11:33 Dose: 20 mg Metoprolol Tartrate (Lopressor -) 50 mg PO BID [facility] Last Admin: 08/27/18 11:33 Dose: 50 mg Ondansetron HCl (Zofran Injection) 4 mg IVPUSH Q6H PRN PRN Reason: NAUSEA AND/OR VOMITING Oxycodone HCl (Roxicodone -) 5 mg PO Q6H PRN PRN Reason: PAIN LEVEL 7 - 10 Last Admin: 08/26/18 21:33 Dose: 5 mg Pantoprazole Sodium (Protonix -) 40 mg PO DAILY [facility] Last Admin: 08/27/18 11:33 Dose: 40 mg Sevelamer Carbonate (Renvela -) 1,600 mg PO TIDCM [facility] Last Admin: 08/27/18 11:34 Dose: 1,600 mg Laboratory Results - last 24 hr 08/26/18 08/26/18 08/27/18 10:30 14:16 05:30 WBC RBC Hgb Hct MCV MCH MCHC RDW Plt Count MPV Absolute Neuts (auto) Neutrophils % Lymphocytes % Monocytes % Eosinophils % Basophils % Nucleated RBC % Sodium 140 137 Potassium 2.8 L* 3.8 Chloride 101 99 Carbon Dioxide 31 30 Anion Gap 7 L 9 BUN 12 30 H Creatinine 2.9 H 7.5 H* Creat Clearance w eGFR 18.58 6.20 Random Glucose 137 H 90 Calcium 8.7 8.7 Phosphorus 6.3 H Magnesium 1.9 Hep C Ab Diagnostic 0.1 08/27/18 05:30 WBC 7.1 RBC 2.92 L Hgb 10.7 Hct 30.5 L MCV 104.4 H MCH 36.8 H MCHC 35.2 RDW 15.1 Plt Count 136 MPV 9.5 Absolute Neuts (auto) 4.7 Neutrophils % 65.7 D Lymphocytes % 25.0 D Monocytes % 7.8 D Eosinophils % 1.0 D Basophils % 0.5 D Nucleated RBC % 0 Sodium Potassium Chloride Carbon Dioxide Anion Gap BUN Creatinine Creat Clearance w eGFR Random Glucose Calcium Phosphorus Magnesium Hep C Ab Diagnostic Microbiology 08/25/18 16:48 Blood - Peripheral Venous Blood Culture - Preliminary NO GROWTH OBTAINED AFTER 24 HOURS, INCUBATION TO CONTINUE FOR 4 DAYS. 08/25/18 16:48 Blood - Peripheral Venous Blood Culture - Preliminary NO GROWTH OBTAINED AFTER 24 HOURS, INCUBATION TO CONTINUE FOR 4 DAYS. ASSESSMENT AND PLAN: 32 yof with ESRD on HD, HTN, renal osteodystrophy with acute appendicitis -Acute suppurative appendicitis s/p lap appendectomy -Hyperkalemia -ESRD on HD -HTN -Renal osteodystrophy Plan: Doing well Surgery input noted Off Abx tolerating diet Abdominal exam non concerning. Short run of HD today D.c home after HD today with outpatient surgery follow up Plan discussed with patient and nursing, all questions answered.
--- NOTE | 2018-08-27 11:44 | DS ---
Physical Exam: SUBJECTIVE: Patient seen and examined Post op day # 2 appenedectomy and umbilical/incisional hernia repair, no complaints, sitting up in bed eating breakfast. OBJECTIVE: Vital Signs Period Temp Pulse Resp BP Sys/House Pulse Ox Last 24 Hr 98.1 F-98.8 F 57-89 16-20 98-159/58-99 97 PHYSICAL EXAM GENERAL: The patient is awake, alert, and fully oriented, in no acute distress. LUNGS: Breath sounds equal, clear to auscultation bilaterally, no wheezes, no crackles, no accessory muscle use. HEART: Regular rate and rhythm, S1, S2 without murmur, rub or gallop. ABDOMEN: Soft, nontender, nondistended, normoactive bowel sounds, no guarding, no rebound, no hepatosplenomegaly, no masses. EXTREMITIES: 2+ pulses, warm, well-perfused, no edema. NEUROLOGICAL: Cranial nerves II through XII grossly intact. Normal speech, gait not observed. PSYCH: Normal mood, normal affect. SKIN: Warm, dry, normal turgor, no rashes or lesions noted. LABS Laboratory Results - last 24 hr 08/26/18 08/26/18 08/27/18 10:30 14:16 05:30 WBC RBC Hgb Hct MCV MCH MCHC RDW Plt Count MPV Absolute Neuts (auto) Neutrophils % Lymphocytes % Monocytes % Eosinophils % Basophils % Nucleated RBC % Sodium 140 137 Potassium 2.8 L* 3.8 Chloride 101 99 Carbon Dioxide 31 30 Anion Gap 7 L 9 BUN 12 30 H Creatinine 2.9 H 7.5 H* Creat Clearance w eGFR 18.58 6.20 Random Glucose 137 H 90 Calcium 8.7 8.7 Phosphorus 6.3 H Magnesium 1.9 Hep C Ab Diagnostic 0.1 08/27/18 05:30 WBC 7.1 RBC 2.92 L Hgb 10.7 Hct 30.5 L MCV 104.4 H MCH 36.8 H MCHC 35.2 RDW 15.1 Plt Count 136 MPV 9.5 Absolute Neuts (auto) 4.7 Neutrophils % 65.7 D Lymphocytes % 25.0 D Monocytes % 7.8 D Eosinophils % 1.0 D Basophils % 0.5 D Nucleated RBC % 0 Sodium Potassium Chloride Carbon Dioxide Anion Gap BUN Creatinine Creat Clearance w eGFR Random Glucose Calcium Phosphorus Magnesium Hep C Ab Diagnostic HOSPITAL COURSE: Date of Admission:08/25/18 Date of Discharge: 08/27/18 This is a 32 year old female with a history of renal osteodystrophy and ESRD on HD, htn, who presents with n/v/d, found to have acute appendicitis. Post op day # 2 appenedectomy and umbilical/incisional hernia repair. Vitals are stable, afebrile, getting hemodialysis. Treated with IV antibiotics zosyn, not deemed necessary for antibiotics upon discharge. Hypertension controlled. Continue with hemodialysis and follow up with nephrology. Minutes to complete discharge: 40 Discharge Summary Reason For Visit: GASTROENTERITIS,ESRD Current Active Problems Acute appendicitis with localized peritonitis, without perforation or abscess ( Acute) Appendicitis, acute (Acute) ESRD (end stage renal disease) (Acute) ESRD on hemodialysis (Acute) Gastroenteritis (Acute) Hypertension (Acute) Incisional hernia of anterior abdominal wall without obstruction or gangrene ( Acute) Nausea & vomiting (Acute) RLQ abdominal pain (Acute) Condition: Improved - Instructions Diet, Activity, Other Instructions: Postoperative instructions: You had a laparoscopic appendectomy with umbilical incisional hernia repair on 08/25- by Dr. Daryn Jimenez of [facility]. Activity: Resume your usual activities gradually, but no heavy exertion or lifting more than 10-15 pounds for 4-6 weeks. Remove dressings 48 hours after surgery; sticky tapes underneath will fall off by themselves. You may shower daily starting then, just pat the incision areas dry. No bath or swimming until skin incisions have healed. Eat lightly at first, but advance to your usual diet as tolerated. Pain: For pain, you may use Tylenol (acetaminophen) 1-2 pills every 6 hours as needed. Do not take more than 4000mg of acetaminophen in a day. Take medications as prescribed or indicated on the labeling. Use a stool softener ( over the counter) twice daily for as long as you are taking any narcotics to avoid constipation. Follow-up: Call Dr. Jimenez's office at [phone] to make your postop appointment (approximately 2 weeks after surgery). Clinic is held in the Diagnostic Center on the first floor of [facility] or on the 5th floor ([address]) in the [facility]. Call the office if you have: * increasing pain not responsive to pain medication * fever of 101F or higher * vomiting * unusual or increasing bleeding or drainage from wounds * increasing redness or swelling at wound sites Also, see your primary medical doctor within 1-2 weeks. Resume your usual hemodialysis schedule, but no heparin for 1 week postoperatively. Resume taking your usual home medicines. Referrals: Daryn Jimenez MD [Staff Physician] - 2 Weeks (CALL for appointment) Disposition: HOME - Home Medications Comprehensive Discharge Medication List: Ambulatory Orders Amlodipine Besylate [Norvasc -] 10 mg PO DAILY #0 tablet 06/02/13 Lisinopril [Prinivil] 20 mg PO DAILY #0 tablet 06/02/13 Sevelamer HCl [Renagel] 1,600 mg PO TID #0 tablet 06/02/13 Metoprolol Tartrate 50 mg PO BID 08/26/18 This patient is new to me today: No Emergency Visit: Yes ED Registration Date: 08/25/18 Care time: The patient presented to the Emergency Department on the above date and was hospitalized for further evaluation of their emergent condition. Critical Care patient: No - Discharge Referral Referred to [facility] Med [facility].: No
[2018-08-27 12:16] VITALS: BP 107/67; PULSE 72
--- NOTE | 2018-08-27 12:17 | PN ---
Progress Note (short form) - Note Progress Note: Renal follow up for ESRD on HD Pt seen and examined at the bedside s/p dialysis this am w/o UF tolerated it well no acute complaints Vital Signs Temperature 98.1 F 08/27/18 09:00 Pulse Rate 62 08/27/18 10:15 Respiratory Rate 18 08/27/18 10:15 Blood Pressure 99/68 08/27/18 10:15 O2 Sat by Pulse Oximetry (%) 97 08/26/18 21:00 Intake & Output 08/24/18 08/25/18 08/26/18 08/27/18 23:59 23:59 23:59 23:59 Intake Total 350 340 200 Output Total 10 Balance 340 340 200 Weight 58.967 kg 58.967 kg 61.054 kg Moderate distress from pain Abd incisions sites with clean dressings CBC, BMP 08/27/18 05:30 08/27/18 05:30 Current Medications Acetaminophen (Tylenol -) 650 mg PO Q6H [facility] Last Admin: 08/27/18 06:37 Dose: 650 mg Amlodipine Besylate (Norvasc -) 10 mg PO DAILY [facility] Last Admin: 08/27/18 11:33 Dose: 10 mg Sodium Chloride (Normal Saline -) 250 mls @ 3,000 mls/hr IV PRN PRN PRN Reason: Hypotension during Dialysis Stop: 08/27/18 19:42 Lisinopril (Prinivil) 20 mg PO DAILY [facility] Last Admin: 08/27/18 11:33 Dose: 20 mg Metoprolol Tartrate (Lopressor -) 50 mg PO BID [facility] Last Admin: 08/27/18 11:33 Dose: 50 mg Ondansetron HCl (Zofran Injection) 4 mg IVPUSH Q6H PRN PRN Reason: NAUSEA AND/OR VOMITING Oxycodone HCl (Roxicodone -) 5 mg PO Q6H PRN PRN Reason: PAIN LEVEL 7 - 10 Last Admin: 08/26/18 21:33 Dose: 5 mg Pantoprazole Sodium (Protonix -) 40 mg PO DAILY [facility] Last Admin: 08/27/18 11:33 Dose: 40 mg Sevelamer Carbonate (Renvela -) 1,600 mg PO TIDCM [facility] Last Admin: 08/27/18 11:34 Dose: 1,600 mg 32 year old woman with hx of ESRD on HD (x 6 years), Hypertension who presented with complaints of N/V x 1 day. #ESRD on HD #Hypertension #Renal Osteodystrophy #Acute Appendicitis #Hyperkalemia Tolerated dialysis well today, next session to be Thursday as an outpatient Pain control discharge planning as per surgery and primary team Haseeb Alejandro DO
[2018-08-27 12:25] LABS: HBSAG SCREEN Negative (Negative); HEP A AB, IGM Negative (Negative); HEP B CORE AB, TOT Negative (Negative)
--- NOTE | 2018-08-27 17:37 | PATH ---
Surgical Pathology Report Patient Name: AMANDA HUA [facility]. Rec. #: [id number] /Age/Gender: 1985 (Age: 32) / F Account: [id number] Location: 4 W TELEMETRY U Taken: 08/25/2018 Received: 08/26/2018 Reported: 08/27/2018 Physicians: Daryn Jimenez M.D. Specimen(s) Received APPENDIX Clinical History Acute appendicitis, localized peritonitis Final Diagnosis APPENDIX, LAPAROSCOPIC APPENDECTOMY: ACUTE APPENDICITIS AND PERIAPPENDICITIS. Electronically Signed Amanda Weeks M.D. Gross Description Received in formalin, labeled "appendix," is a 6 cm. in length vermiform appendix with a stapled margin of resection and moderate attached fat. The serosa is hussein-cho with focal attached exudate. Sectioning reveals a dilated lumen containing hussein pus. The wall of the appendix averages 0.1 cm. in thickness. Painter And Decorator sections are submitted in one cassette. 08/26/2018 saudi08/26/2018
--- NOTE | 2018-08-31 23:39 | OP ---
DATE OF OPERATION: 08/25/2018 (completed on 08/26/2018) PREOPERATIVE DIAGNOSIS: Acute appendicitis with localized peritonitis. POSTOPERATIVE DIAGNOSIS: Acute appendicitis with localized peritonitis and umbilical incisional hernia. PROCEDURE: Laparoscopic appendectomy with primary umbilical/incisional hernia repair. SURGEON: Daryn Jimenez MD ANESTHESIA: General endotracheal and local with 10 mL of 0.5% Marcaine. ESTIMATED BLOOD LOSS: 10 mL FLUIDS: 200 mL of crystalloid. URINE OUTPUT: Droplets in the Gallegos tubing only (hemodialysis patient). SPECIMEN: Appendix to Pathology. FINDINGS: An umbilical incisional hernia was noted on supraumbilical entry, which required repair on the way out with an extra stitch (fat only reduced). An enlarged and inflamed firm appendix was noted with yellow/purulent fluid in the right lower quadrant and pelvis, which was suctioned. DISPOSITION: Stable and extubated to PACU. INDICATIONS FOR PROCEDURE: The patient is a 32-year-old [place] female with history of hypertension and end-stage renal disease on hemodialysis for the last 6 years via left upper extremity AV fistula who presented to the emergency room with central abdominal pain beginning the evening prior, migrating to the right lower quadrant, associated with chills, nausea, vomiting, and diarrhea. She does still make some urine, but the last episode had been the day before presentation. In the emergency room a white count was 12.9 and a CAT scan showed acute appendicitis with what appeared to be a retrocecal appendix. Labs were significant for high BUN and creatinine as her last hemodialysis had been 2 days prior. Nephrology believed that she was stable and was planning to do hemodialysis first thing in the morning. She got small fluid bolus and IV antibiotics in the emergency room. Previous surgeries also included 3 sections via a lower midline incision. Discussion was had with the patient utilizing a Occitan phone production floater of the risks, benefits, and alternatives of laparoscopic, possible open appendectomy. This is including, but not limited to bleeding, infection, injury to adjacent structures, intestinal leak or injury, intraabdominal abscess, incisional hernia. Need for further procedures or . Alternatives include antibiotics and delayed or no surgery with attendant risks of failure, nonoperative therapy, perforation, sepsis, recurrence, and . The patient desired to proceed with the operation, signed informed consent for the same and is now brought to the or for this procedure. OPERATIVE TECHNIQUE: The patient was brought to the operating room and laid supine on the operating table. Sequential compression devices were applied to the bilateral lower extremities. Then 1 g of cefoxitin was given in the OR immediately prior to the surgery as a renal dose of Zosyn had been given, but at least a couple of hours prior. After induction and intubation by Anesthesia, Gallegos catheter was placed in the patient's bladder with some small amount of urine in the tubing, but the bag never accumulated any significant amount of urine throughout the case. It was removed at the end of the case. The patient's abdomen was also prepped and draped in the sterile fashion. A small supraumbilical midline incision was made with a scalpel and carried into the subcutaneous tissues. The abdominal wall fascia was identified. An umbilical incisional hernia with preperitoneal fat content was identified as we did get to the fascia at the umbilical area. The fascial opening at the hernia site was enlarged slightly with electrocautery. A fingertip inserted to ensure complete entry into the abdominal cavity through the peritoneum and the preperitoneal fat reduced from this area. A stay suture of 0 Vicryl in nilroq-wi-janvs fashion was placed in the fascia for later closure, but it was also clear that it was possible that we were going to need an extra stitch on the way out to make sure that the hernia itself had been completely repaired. The Yue trocar was then inserted through the fascial defect into the abdominal cavity and held in place with the balloon. The abdomen was insufflated with carbon dioxide and the patient was placed in Trendelenburg position with the right-side plane somewhat upwards. There was yellow purulent fluid noted in the pelvis, which was suctioned and a small amount of yellow fluid was also in the right lower quadrant. Upon placing a laparoscope into the trocar to visualize the right lower quadrant structures, it was also noted that the tip of the appendix appeared to be prominent underneath a layer of omentum that was manipulated medially and away from this area. The appendix itself appeared enlarged, inflamed, infected, and was noted to be rather firm along its length and difficult to grasp, except towards the base and at its edges. Two additional 5 mm ports were placed in the suprapubic and left lower quadrant areas under direct vision. Four graspers and a camera were moved to the left lower quadrant port such that the Yue could be used for operating. [place] dissector and a grasper were used to manipulate the appendix as well as to create a window in the mesentery adjacent to the base of the appendix where it joined the cecum, such that a purple load of the EndoGIA stapler 45 length could be introduced and used to transect the base of the appendix at the cecal junction. The staple line was noted to be hemostatic. The appendix was then carefully regrasped, although it took a number of tries to be able to hold it up such that the white load of the stapler could be introduced to transect the mesoappendix. Once the stapler had been appropriately positioned, the mesoappendix was also transected. The appendix was grasped and held away from the right lower quadrant briefly. Staple line in this instance was noted to have a few spots of local bleeding. The [place] dissector was used with cautery attached to carefully seal the bleeding areas distal to the staple line. Suction help desk representative was also attached and used to again originally suction out the yellow fluid from the pelvis as well as some yellow fluid from the right lower quadrant. It was used to suction bloody fluid from around the operative field and once hemostasis had been assured, a couple of small squirts with the irrigation were used simply to ensure that there was no active bleeding from the staple line anymore, which was also immediately suctioned back out. The appendix was then grasped and an EndoCatch bag inserted through the umbilical port site and used to contain the appendix for removal through that space. It was passed off as a pathology specimen. Again, all hemostasis assured and the operative field was cleared of fluid and blood. All ports were then removed; the 5 mm under direct vision, and then the Yue trocar with the camera also finally removed. The abdomen was desufflated of carbon dioxide. The stay suture at the umbilical port site was used to tie the fascia closed there, at which point there was still a small area of open fascia noted. An additional userar-km-kauqz 0 Vicryl stitch was placed to make sure that the entire incisional hernia defect was closed. Local anesthetic was infiltrated into all of the port sites. Hemostasis was achieved in the port sites with electrocautery where necessary. Skin was closed with 4-0 Vicryl subcuticular sutures including a running at the umbilicus. Benzoin and Steri-Strips were applied over each incision. Dressings of gauze and Tegaderm were placed over these. The Gallegos catheter, again, was removed from the patient's bladder. Counts were correct at the end of the procedure. The patient was then awakened by anesthesia, extubated, and moved back to the stretcher and taken to the recovery room in stable condition, having tolerated the procedure quite well. Daryn Jimenez M.D. DURGA/[id number]
== END 2018-08-27 15:24 | disposition home or self-care (01) | DRG 225 ==
LOC: JER 06:09 → JERBED 12:51 → OBSVTOIN 16:42 → J4W 08-26 04:05
PROVIDERS: ADMIT Hospitalist; ATTEND Hospitalist
PROC: 0WQF4ZZ Repair Abdominal Wall, Percutaneous Endoscopic Approach (ICD-10-PCS; 2018-08-25)
PROC: 5A1D70Z Performance of Urinary Filtration, Intermittent, Less than 6 Hours Per Day (ICD-10-PCS; 2018-08-25)
PROC: 0DTJ4ZZ Resection of Appendix, Percutaneous Endoscopic Approach (ICD-10-PCS; principal; 2018-08-25 19:30)
DX: K35.30 Acute appendicitis with localized peritonitis, without perforation or gangrene (principal); I12.0 Hypertensive chronic kidney disease with stage 5 chronic kidney disease or end stage renal disease; N18.6 End stage renal disease; N25.0 Renal osteodystrophy; E87.5 Hyperkalemia; Z99.2 Dependence on renal dialysis; K52.9 Noninfective gastroenteritis and colitis, unspecified
CPT/HCPCS: 36415; 74177-TC; 76705-TC; 80048; 80053; 83690; 83735; 84100; 84702; 84703; 85025; 85610; 85730; 86704; 86706; 86708; 86803; 86850; 86900; 86901; 87040; 87340; 88304-TC; 93005; 93010; 94010; 94760; 99283-25; G0378; J0131; J7030; Q0162

== ENCOUNTER 2018-09-01 21:24 | Inpatient (IN) | payer OTHER ==
[2018-09-01 21:49] VITALS: BMI 26.4
[2018-09-01] MEDS ORDERED: SODIUM CHLORIDE 1,000 ML IV STA (21:58)
--- NOTE | 2018-09-01 22:24 | PDOC ---
History of Present Illness - General History Source: Patient Exam Limitations: No Limitations - History of Present Illness Initial Comments: 09/01/18 22:48 Patient is a 32 year old female with a significant past medical history of renal osteodystrophy with ESRD on HD (MWF), HTN, who presents to the ED with complaints of elevated fever that began this morning. Patient reports experiencing slight fever this morning that she states gradually increased over time. She reports undergoing her dialysis appointment when her fever began to spike, prompting the staff to give her tylenol and vancomycin with little relief. Patient was then sent to the ED for further evaluation. Denies chest pain,Sob. Denies nausea, vomiting. Denies dysuria, hematuria. Denies constipation, diarrhea. Denies any other symptoms. Allergies: None Social history: No smoking. No alcohol. No illicit drugs. Surgical history: c section PMD: Dr. Magali Pritchard <Levi Tipton - Last Filed: 09/01/18 22:48> <Shelby Tobar - Last Filed: 09/02/18 02:03> - General Chief Complaint: SIRS, Suspected/Possible Stated Complaint: HIGH FEVER Time Seen by Provider: 09/01/18 22:23 Past History <Levi Tipton - Last Filed: 09/01/18 22:48> - Past Medical History Anemia: No Asthma: No Cancer: No Cardiac Disorders: No CVA: No COPD: No CHF: No Dementia: No Diabetes: No Dialysis: Yes (ESRD,last dialysis on 06/01/13.) GI Disorders: No Disorders: No HTN: Yes Hypercholesterolemia: No Liver Disease: No Seizures: No Thyroid Disease: No - Surgical History Abdominal Surgery: No Appendectomy: Yes (08/25/2018) Cardiac Surgery: No Cholecystectomy: No Lung Surgery: No Neurologic Surgery: No Orthopedic Surgery: No - Immunization History Immunization Up to Date: Yes - Suicide/Smoking/Psychosocial Hx Smoking History: Never smoked Have you smoked in the past 12 months: No Information on smoking cessation initiated: No Hx Alcohol Use: No Drug/Substance Use Hx: No Substance Use Type: None Hx Substance Use Treatment: No <Shelby Tobar - Last Filed: 09/02/18 02:03> - Past Medical History Allergies/Adverse Reactions: Allergies Allergy/AdvReac Type Severity Reaction Status Date / Time No Known Allergies Allergy Verified 09/01/18 21:49 Home Medications: Ambulatory Orders Amlodipine Besylate [Norvasc -] 10 mg PO DAILY #0 tablet 06/02/13 Lisinopril [Prinivil] 20 mg PO DAILY #0 tablet 06/02/13 Sevelamer HCl [Renagel] 1,600 mg PO TID #0 tablet 06/02/13 Metoprolol Tartrate 50 mg PO BID 08/26/18 Review of Systems - Review of Systems Able to Perform ROS?: Yes Comments:: 09/01/18 22:49 GENERAL/CONSTITUTIONAL: +Fever No chills. No weakness. HEAD, EYES, EARS, NOSE AND THROAT: No change in vision. No ear pain or discharge. No sore throat. GASTROINTESTINAL: No nausea, vomiting, diarrhea or constipation. GENITOURINARY: No dysuria, frequency, or change in urination. CARDIOVASCULAR: No chest pain or shortness of breath. RESPIRATORY: No cough, wheezing, or hemoptysis. MUSCULOSKELETAL: No joint or muscle swelling or pain. No neck or back pain. SKIN: No rash NEUROLOGIC: No headache, vertigo, loss of consciousness, or change in strength/ sensation. ENDOCRINE: No increased thirst. No abnormal weight change. HEMATOLOGIC/LYMPHATIC: No anemia, easy bleeding, or history of blood clots. ALLERGIC/IMMUNOLOGIC: No hives or skin allergy. <Levi Tipton - Last Filed: 09/01/18 22:48> *Physical Exam - Vital Signs Last Vital Signs Temp Pulse Resp BP Pulse Ox 101.8 F H 116 H 16 132/85 100 09/01/18 21:46 09/01/18 21:46 09/01/18 21:46 09/01/18 21:46 09/01/18 21:46 - Physical Exam Comments: 09/01/18 22:49 Constitutional: +Fever. +Hot to touch Awake, alert, oriented. No acute distress. Head: Normocephalic. Atraumatic Eyes: PERRL. EOMI. Conjunctivae are not pale. ENT: Mucous membranes are moist and intact. Posterior pharynx without exudate or erythema. Uvula midline. Neck: Supple. Full ROM. No lymphadenopathy. Cardiovascular: +Tachycardic. Regular rhythm. S1, S2 regular. Distal pulses are 2+ and symmetric. Pulmonary/Chest: No evidence of respiratory distress. Clear to auscultation bilaterally No wheezing, rales or rhonchi. Abdominal: +Incision clean, dry, intact. +Mild superpubic tenderness. No RLQ pain. Soft and nondistended. There is no tenderness. No rebound, guarding or rigidity. No organomegaly. No palpable masses. Good bowel sounds. Back: No CVA tenderness. Extremities: +Left upper extremity fistula with bruit and frill. Musculoskeletal: No edema. No cyanosis. No clubbing. Full range of motion in all extremities. No Calf tenderness. Radial/pedal pulses are intact and 2+ bilaterally Skin: Skin is warm and dry. No petechiae. No purpura. Neurological: Alert and oriented to person, place, and time. Cranial nerves II -XII are grossly intact. Normal speech. Strength is grossly symmetric. No sensory deficits. Psychiatric: Good eye contact. Normal interaction, affect and behavior. <Levi Tipton - Last Filed: 09/01/18 22:48> - Vital Signs Last Vital Signs Temp Pulse Resp BP Pulse Ox 101.8 F H 116 H 16 132/85 100 09/01/18 21:46 09/01/18 21:46 09/01/18 21:46 09/01/18 21:46 09/01/18 21:46 <Shelby Tobar - Last Filed: 09/02/18 02:03> Moderate Sedation - Procedure Monitoring Vital Signs: Procedure Monitoring Vital Signs Temperature 101.8 F H 09/01/18 21:46 Pulse Rate 116 H 09/01/18 21:46 Respiratory Rate 16 09/01/18 21:46 Blood Pressure 132/85 09/01/18 21:46 O2 Sat by Pulse Oximetry (%) 100 09/01/18 21:46 <Levi Tipton - Last Filed: 09/01/18 22:48> - Procedure Monitoring Vital Signs: Procedure Monitoring Vital Signs Temperature 101.8 F H 09/01/18 21:46 Pulse Rate 116 H 09/01/18 21:46 Respiratory Rate 16 09/01/18 21:46 Blood Pressure 132/85 09/01/18 21:46 O2 Sat by Pulse Oximetry (%) 100 09/01/18 21:46 <Shelby Tobar - Last Filed: 09/02/18 02:03> Heart Score/ECG Review - ECG Intrepretation Comment:: 09/01/18 23:25 sinus at 99, nl axis, nl interval, no acute st/t wave findings <Shelby Tobar - Last Filed: 09/02/18 02:03> ED Treatment Course - LABORATORY CBC & Chemistry Diagram: 09/01/18 22:56 09/01/18 22:56 <Shelby Tobar - Last Filed: 09/02/18 02:03> Medical Decision Making - Medical Decision Making 09/01/18 22:33 a/p: 32yo female with fever today -hx of appendectomy 1 week prior, fever started today -given gent, vanco on hd -denies LE swelling, denies dysuria- makes urine once a day -denies cough -denies n/v/d -pt denies rash -incision c/d/i -will send labs -will need admission -will monitor and reassess 09/01/18 23:[address] pritchard - will see patient in consult tomorrow for HD agrees with plan for ct abd/pelvis 09/02/18 01:10 cxr clear 09/02/18 01:11 elevated wbc-abx given on HD 09/02/18 01:54 b/l pleural effusions, mild diffuse colitis, small r ovarian cyst without ff microblog sent to [facility] for admission received abx on hd 09/02/18 02:02 will add flagyl case discussed with [facility] who accepts pt to service for diffuse colitis <Shelby Tobar - Last Filed: 09/02/18 02:03> *DC/Admit/Observation/Transfer - Attestations Scribe Attestion: 09/01/18 22:49 Documentation prepared by Levi Tipton, acting as medical coding auditor for Shelby Tobar DO. <Levi Tipton - Last Filed: 09/01/18 22:48> - Discharge Dispostion Decision to Admit order: Yes - Attestations Physician Attestion: 09/02/18 01:56 I, Dr. Shelby Tobar DO, attest that this document has been prepared under my direction and personally reviewed by me in its entirety. I further attest, that it accurately reflects all work, treatment, procedures and medical decision -making performed by me. <Shelby Tobar - Last Filed: 09/02/18 02:03> Diagnosis at time of Disposition: Fever, Sepsis, Colitis - Discharge Dispostion Condition at time of disposition: Guarded
[2018-09-01 23:09] LABS: BASO % 0.4 % (0-2.0); EOS % 0.1 % (0-4.5); HEMATOCRIT 32.2 % (32.4-45.2); HEMOGLOBIN 11.5 GM/dL (10.7-15.3); LYMPH % 3.6 % (8-40); MCH 36.1 pg (25.7-33.7); MCHC 35.8 g/dl (32.0-36.0); MEAN CELL VOLUME 100.9 fl (80-96); MEAN PLT VOLUME 8.6 fl (7.5-11.1); MONO % 5.1 % (3.8-10.2); NEUT % 90.8 % (42.8-82.8); PLATELET COUNT 153 K/MM3 (134-434); RDW 14.4 % (11.6-15.6); WHITE BLOOD COUNT 14.8 K/mm3 (4.0-10.0)
[2018-09-01 23:36] LABS: ALBUMIN 3.4 g/dl (3.4-5.0); ALK PHOS 61 U/L (45-117); ANION GAP 9 MMOL/L (8-16); BILIRUBIN,TOTAL 0.4 mg/dL (0.2-1); BLOOD UREA NITROGEN 18 mg/dL (7-18); CALCIUM 8.9 mg/dL (8.5-10.1); CHLORIDE 99 mmol/L (98-107); CO2 27 mmol/L (21-32); CREATININE 4.8 mg/dL (0.55-1.3); GLUCOSE,RANDOM 87 mg/dL (74-106); POTASSIUM 3.4 mmol/L (3.5-5.1); SGOT/AST 31 U/L (15-37); SGPT/ALT 45 U/L (13-61); SODIUM 135 mmol/L (136-145); TOT PROT 6.9 g/dl (6.4-8.2)
[2018-09-02] MEDS ORDERED: ACETAMINOPHEN 1000 MG/100 ML VIAL (NON FORMULARY) IVPB ONE (00:53)
[2018-09-02] MEDS ORDERED: ACETAMINOPHEN INJECTION 100 ML IVPB ONE (01:15)
--- NOTE | 2018-09-02 02:08 | PN ---
Teaching Attending Note Name of Resident: Colt Youssef ATTENDING PHYSICIAN STATEMENT I saw and evaluated the patient. I reviewed the resident's note and discussed the case with the resident. I agree with the resident's findings and plan as documented. SUBJECTIVE: Seen and examined; please refer to resident note for further historical discussion. Briefly, this morning the patient noted that she had a subjective fever prior to HD. She was given APAP and vanco with HD which did not alleviate her symptoms. She was here last week with acute appendicitis and was discharged after an unremarkable post operative course; Dr. Jimenez did a laparoscopic appendectomy with primary incisional hernia repair; purulent material was found intraperitoneally during procedure. She was given instructions to followup with sgy 2 weeks post DC. She has no abdominal pain at rest but does have some mild discomfort midline to deep palpation. HD days are MWF. She had 1 episode of watery diarrhea. She denies cough, CP, SOB, etc. 10 sys ROS done and negative aside from HPI PMH (ESRD on HD, HTN, renal osteodystrophy), PSH (recent laparoscopic appendectomy with primary hernia repair), Family hx, Social hx reviewed Medication list reviewed; pending reconciliation Home Medications Medication Instructions Recorded Amlodipine Besylate [Norvasc -] 10 mg PO DAILY #0 tablet 06/02/13 Lisinopril [Prinivil] 20 mg PO DAILY #0 tablet 06/02/13 Sevelamer HCl [Renagel] 1,600 mg PO TID #0 tablet 06/02/13 Metoprolol Tartrate 50 mg PO BID 08/26/18 OBJECTIVE: VS, labs, imaging reviewed NAD, AAO, resting in bed NC AT EOMI PERRLA RRR s1/2 no mgr Lungs CTAB, w/ sym exp Tender, ND +BS CN2-12 wnl, no fnd Normal mood, appropriate behavior CT preliminary report shows mild diffuse colitis with significant bilateral renal atrophy, small R-sided cyst, and probable postoperative umbilical subcutaneous edema and subjacent peritoneal edema but no abscess ASSESSMENT AND PLAN: Patient presents with fever and leukocytosis with recent appendectomy found to have mild diffuse colitis on CT 1) Acute Colitis -Zosyn and consult ID; advance diet as tolerated. 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
--- NOTE | 2018-09-02 05:43 | HP ---
<Colt Youssef - Last Filed: 09/05/18 19:21> CHIEF COMPLAINT: Fever PCP: HISTORY OF PRESENT ILLNESS: Pt. is a Albanian speaking 32 y.o. F presenting for fever for one day. Pt. states that she noticed a subjective fever this morning. Pt. went for her scheduled dialysis and was found to have a fever. Pt. was given Tylenol and Vancomycin. Pt. endorsed one episode of watery diarrhaea. Pt. was recently admitted (08/25/18) for appendicitis and had a laproscopic appendectomy. Pt.s fever did not karen ER course was notable for: (1)UA/ UCx, BCx, CT-A/P (2)Flagyl, IV Tylenol (3)Discussed w/ Dr. Pritchard Recent Travel: No PAST MEDICAL HISTORY: Renal Osteodystrophy (6 years, ESRD on HD MWF), HTN PAST SURGICAL HISTORY: , appendectomy and umbilical hernia repair. Social History: Smoking: Denies Alcohol: Denies Drugs: Denies Family History: DM in unspecified Pt. Allergies No Known Allergies Allergy (Verified 09/01/18 21:49) HOME MEDICATIONS: Home Medications Medication Instructions Recorded Amlodipine Besylate [Norvasc -] 10 mg PO DAILY #0 tablet 06/02/13 Lisinopril [Prinivil] 20 mg PO DAILY #0 tablet 06/02/13 Sevelamer HCl [Renagel] 1,600 mg PO TID #0 tablet 06/02/13 Metoprolol Tartrate 50 mg PO BID 08/26/18 REVIEW OF SYSTEMS CONSTITUTIONAL: fever, chills Absent: diaphoresis, generalized weakness, malaise, loss of appetite, weight change HEENT: Absent: rhinorrhea, nasal congestion, throat pain, throat swelling, difficulty swallowing, mouth swelling, ear pain, eye pain, visual changes CARDIOVASCULAR: Absent: chest pain, syncope, palpitations, irregular heart rate, lightheadedness , peripheral edema RESPIRATORY: Absent: cough, shortness of breath, dyspnea with exertion, orthopnea, wheezing, stridor, hemoptysis GASTROINTESTINAL:diarrhea Absent: abdominal pain, abdominal distension, nausea, vomiting, , constipation, melena, hematochezia GENITOURINARY: Absent: dysuria, frequency, urgency, hesitancy, hematuria, flank pain, genital pain MUSCULOSKELETAL: Absent: myalgia, arthralgia, joint swelling, back pain, neck pain SKIN: Absent: rash, itching, pallor HEMATOLOGIC/IMMUNOLOGIC: Absent: easy bleeding, easy bruising, lymphadenopathy, frequent infections ENDOCRINE: Absent: unexplained weight gain, unexplained weight loss, heat intolerance, cold intolerance NEUROLOGIC: dizziness Absent: headache, focal weakness or paresthesias, unsteady gait, seizure, mental status changes, bladder or bowel incontinence PSYCHIATRIC: Absent: anxiety, depression, suicidal or homicidal ideation, hallucinations. PHYSICAL EXAMINATION Vital Signs - 24 hr 09/01/18 09/01/18 09/02/18 21:46 23:16 01:02 Temperature 101.8 F H 102.0 F H Pulse Rate 116 H Pulse Rate [ Right] Respiratory 16 Rate Blood Pressure 132/85 Blood Pressure [Right Arm] O2 Sat by Pulse 100 99 Oximetry (%) 09/02/18 03:42 Temperature 98.7 F Pulse Rate Pulse Rate [ 108 H Right] Respiratory 17 Rate Blood Pressure Blood Pressure 135/89 [Right Arm] O2 Sat by Pulse 98 Oximetry (%) GENERAL: Awake, alert, and fully oriented, in mild distress. HEAD: Normal with no signs of trauma. EYES: Pupils equal, round and reactive to light, extraocular movements intact, sclera anicteric, conjunctiva clear. EARS, NOSE, THROAT: Ears normal, nares patent, oropharynx clear without exudates. Moist mucous membranes. LUNGS: Breath sounds equal, clear to auscultation bilaterally. No wheezes, and no crackles. No accessory muscle use. HEART: Regular rate and rhythm, normal S1 and S2 without murmur ABDOMEN: Soft, mild reid-umbilical tenderness, not distended, normoactive bowel sounds, no guarding, no rebound, no masses. No hepatomegaly or splenomegaly. MUSCULOSKELETAL: Normal range of motion at all joints. No bony deformities or tenderness. No CVA tenderness. UPPER EXTREMITIES: 2+ radial pulses, warm, well-perfused. LUE AVF Frills and thrills. No cyanosis. No clubbing. No peripheral edema. LOWER EXTREMITIES: 2+ pulses, warm, well-perfused. No calf tenderness. No peripheral edema. NEUROLOGICAL: Cranial nerves II-XII intact. Normal speech. Gait not assessed PSYCHIATRIC: Cooperative. Good eye contact. Appropriate mood and affect. SKIN: Warm, dry, normal turgor, no rashes or lesions noted, normal capillary refill. Laboratory Results - last 24 hr 09/01/18 09/01/18 09/01/18 22:56 22:56 22:56 WBC 14.8 H RBC 3.20 L Hgb 11.5 Hct 32.2 L MCV 100.9 H MCH 36.1 H MCHC 35.8 RDW 14.4 Plt Count 153 MPV 8.6 Absolute Neuts (auto) 13.4 H Neutrophils % 90.8 H Lymphocytes % 3.6 L D Monocytes % 5.1 Eosinophils % 0.1 D Basophils % 0.4 Nucleated RBC % 0 Sodium 135 L Potassium 3.4 L Chloride 99 Carbon Dioxide 27 Anion Gap 9 BUN 18 Creatinine 4.8 H Creat Clearance w eGFR 10.38 Random Glucose 87 Lactic Acid Calcium 8.9 Total Bilirubin 0.4 AST 31 ALT 45 Alkaline Phosphatase 61 Total Protein 6.9 Albumin 3.4 Influenza A (Rapid) Negative Influenza B (Rapid) Negative 09/01/18 22:56 WBC RBC Hgb Hct MCV MCH MCHC RDW Plt Count MPV Absolute Neuts (auto) Neutrophils % Lymphocytes % Monocytes % Eosinophils % Basophils % Nucleated RBC % Sodium Potassium Chloride Carbon Dioxide Anion Gap BUN Creatinine Creat Clearance w eGFR Random Glucose Lactic Acid 0.7 Calcium Total Bilirubin AST ALT Alkaline Phosphatase Total Protein Albumin Influenza A (Rapid) Influenza B (Rapid) ASSESSMENT/PLAN: Pt. is a Albanian speaking 32 y.o. F w/ PMHx. of Renal Osteodystrophy (6 years, ESRD on HD MWF), HTN presenting for fever for one day. #Fever 2/[address] A/P showed mild diffuse colitis, trace b/l effusions, renal atrophy, small R. ovarian cyst(14mm), periumbilical and pericolic edema. f/u ID consult (Catalino)-may need to change Abx. pending C. Diff results f/u C.Diff Ag c/w Zosyn, received 1 dose of Flagyl in ED IV Tylenol for Pain f/u lactoferrin #ESRD 2/2 Osteodystrophy HD on MWF Nephrology(Javon) consult #HTN c/w home medications #FEN LR@30cc/hr monitor electrolytes and replete as needed, HD for excess NPO, advance diet as tolerated #DVT Lovenox 30mg SQ Visit type - Emergency Visit Emergency Visit: Yes ED Registration Date: 09/02/18 Care time: The patient presented to the Emergency Department on the above date and was hospitalized for further evaluation of their emergent condition. - New Patient This patient is new to me today: Yes Date on this admission: 09/02/18 - Critical Care Critical Care patient: No <Alfonso Malave - Last Filed: 10/04/18 21:52> Seen and examined; agree with above aside from what is supplemented in my own documentation. Repeated all clayton parts of exam, supervised all vital parts of patient care.
[2018-09-02] MEDS ORDERED: LACTATED RINGERS SOLUTION 1,000 ML IV SCH (05:45)
[2018-09-02] MEDS ORDERED: DEXTROSE 5%-WATER - 50 ML IVPB ONE ×2 (09:02→17:06)
[2018-09-02] MEDS ORDERED: PIPERACILLIN/TAZOBACTAM 2.25 GM VIAL IVPB ONE ×2 (09:02→17:05)
[2018-09-02] MEDS ORDERED: PIPERACILLIN/TAZOB 2.25 GM 2.25 GM in DEXTROSE 5%-WATER - 50 ML IVPB SCH (10:00)
[2018-09-02] MEDS ORDERED: ENOXAPARIN NA (PORCINE) 30 MG/0.3 ML DISP.SYRIN SQ SCH (10:00)
--- NOTE | 2018-09-02 10:55 | EKG ---
Test Reason : Blood Pressure : / mmHG Vent. Rate : 099 BPM Atrial Rate : 099 BPM P-R Int : 132 ms QRS Dur : 084 ms QT Int : 542 ms P-R-T Axes : 055 058 055 degrees QTc Int : 695 ms NORMAL SINUS RHYTHM POSSIBLE LEFT ATRIAL ENLARGEMENT NONSPECIFIC T WAVE ABNORMALITY PROLONGED QT ABNORMAL ECG WHEN COMPARED WITH ECG OF 26-AUG-2018 09:19, QT HAS LENGTHENED Confirmed by ALONZO DAVIS, BRITTON ([id number]) on 09/02/2018 10:55:37 AM Referred By: Confirmed By:BRITTON ROSADO MD
[2018-09-02] MEDS ORDERED: SODIUM CHLORIDE 1,000 ML IV SCH (11:00)
[2018-09-02 11:36] LABS: BASO % 0.1 % (0-2.0); HEMATOCRIT 29.6 % (32.4-45.2); HEMOGLOBIN 10.3 GM/dL (10.7-15.3); MCH 35.2 pg (25.7-33.7); MCHC 34.8 g/dl (32.0-36.0); MEAN PLT VOLUME 8.8 fl (7.5-11.1); MONO % 5.9 % (3.8-10.2); PLATELET COUNT 143 K/MM3 (134-434); RBC 2.93 M/mm3 (3.60-5.2); RDW 14.8 % (11.6-15.6); WHITE BLOOD COUNT 15.4 K/mm3 (4.0-10.0)
[2018-09-02 11:47] LABS: INR 1.25 (0.83-1.09); PROTHROMBIN TIME (PATIENT) 14.8 SEC (9.7-13.0)
--- NOTE | 2018-09-02 12:32 | CONSULT ---
Consult - text type - Consultation Consultation Note: Renal Consult for ESRD on HD This is a 32 year old woman with hx of ESRD on HD (MWF), Hypertension recent admission for appendectomy who presents from HD unit with fevers and admitted for colitis. Pt reports fevers since yesterday morning. Denies any abd pain. Had diarrhea last night but none before. No sick contacts. Was able to have dialysis yesterday. No SOB, CP, WHITNEY, confusion or lethargy. No leg swelling. PMhx: as above Allergies: NKDA Family Hx: NC Social hx: No T/A/D ROS: as per HPI, all other pertinent ros negative Home Medications Medication Instructions Recorded Amlodipine Besylate [Norvasc -] 10 mg PO DAILY #0 tablet 06/02/13 Lisinopril [Prinivil] 20 mg PO DAILY #0 tablet 06/02/13 Sevelamer HCl [Renagel] 1,600 mg PO TID #0 tablet 06/02/13 Metoprolol Tartrate 50 mg PO BID 08/26/18 Vital Signs Temperature 100.5 F H 09/02/18 10:00 Pulse Rate 94 H 09/02/18 10:00 Respiratory Rate 18 09/02/18 10:00 Blood Pressure 110/68 09/02/18 10:00 O2 Sat by Pulse Oximetry (%) 98 09/02/18 03:42 Intake & Output 08/30/18 08/31/18 09/01/18 09/02/18 23:59 23:59 23:59 23:59 Weight 70 kg NAD awake and alert neck supple, no JVD RRR, no M/R CTA, no rales or wheeze soft NT/ND, no rebound or guarding No LE edema Left ARM AVF CBC, BMP 09/02/18 10:45 Current Medications Enoxaparin Sodium (Lovenox -) 30 mg SQ DAILY DORY Last Admin: 09/02/18 10:27 Dose: 30 mg Lactated Ringer's (Lactated Ringers Solution) 1,000 mls @ 30 mls/hr IV ASDIR DORY Last Admin: 09/02/18 05:57 Dose: 30 mls/hr Piperacillin Sod/Tazobactam (Sod 2.25 gm/ Dextrose) 50 mls @ 100 mls/hr IVPB Q8H-IV DORY; Protocol Stop: 09/02/18 18:29 Last Admin: 09/02/18 10:26 Dose: 100 mls/hr Piperacillin Sod/Tazobactam (Sod 2.25 gm/ Dextrose) 50 mls @ 100 mls/hr IVPB Q8H-IV DORY Sodium Chloride (Normal Saline -) 1,000 mls @ 83 mls/hr IV ASDIR DORY Stop: 09/02/18 23:03 32 year old woman with hx of ESRD on HD (MWF), Hypertension recent admission for appendectomy who presents from HD unit with fevers and admitted for colitis. 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
[2018-09-02] MEDS ORDERED: SODIUM CHLORIDE 250 ML IV PRN (12:35)
[2018-09-02] MEDS: SODIUM CHLORIDE 1,000 ML IV SCH (13:15)
[2018-09-02 13:23] LABS: ANION GAP 12 MMOL/L (8-16); BLOOD UREA NITROGEN 24 mg/dL (7-18); CHLORIDE 100 mmol/L (98-107); CO2 21 mmol/L (21-32); CREATININE 6.9 mg/dL (0.55-1.3); GLUCOSE,RANDOM 81 mg/dL (74-106); PHOSPHOROUS 5.5 mg/dL (2.5-4.9); POTASSIUM 3.6 mmol/L (3.5-5.1); SODIUM 134 mmol/L (136-145)
[2018-09-02] MEDS ORDERED: VANCOMYCIN 1 GRAM (PRE-DOCKED) 1,000 MG/250 ML BAG IVPB ONE (15:10)
--- NOTE | 2018-09-02 15:27 | PN ---
Progress Note (short form) - Note Progress Note: ID consult dictated 32 yo female pmh esrd on hd s/p lap appy 08/25 to 08/27 received zosyn perioperatively yesterday developed fever at HD and sent to ED denies nausea or vomiting denies abdominal pain or diarrhea or dysuria eating normally no cough or sore throat no sick contacts febrile to 102 came to ED given recent endoscopy had ct scan with quesiton of colitis but she denies diarrhea given vanco in HD yesterday?? were blood cultures drawn there ? continue vanco/zosyn if she has diarrhea send stool cdiff ct scan reviewed with radiology no abscess noted d/w resident Problem List - Problems (1) Fever Code(s): R50.9 - FEVER, UNSPECIFIED (3) ESRD on hemodialysis Code(s): N18.6 - END STAGE RENAL DISEASE; Z99.2 - DEPENDENCE ON RENAL DIALYSIS
[2018-09-02] MEDS ORDERED: ACETAMINOPHEN 1000 MG/100 ML VIAL (NON FORMULARY) IVPB PRN (16:43)
[2018-09-02] MEDS: PIPERACILLIN/TAZOB 2.25 GM 2.25 GM in DEXTROSE 5%-WATER - 50 ML IVPB SCH (17:44)
--- NOTE | 2018-09-02 18:01 | PN ---
Teaching Attending Note Name of Resident: Mavis Cross ATTENDING PHYSICIAN STATEMENT I saw and evaluated the patient. I reviewed the resident's note and discussed the case with the resident. I agree with the resident's findings and plan as documented. SUBJECTIVE: Ms Reece complains of abdominal pain and headache. No cp, sob, n/v. OBJECTIVE: Last Vital Signs Temp Pulse Resp BP Pulse Ox 37.3 C 97 H 18 117/70 98 09/02/18 14:00 09/02/18 14:00 09/02/18 14:00 09/02/18 14:00 09/02/18 03:42 Gen: nad Pulm: ctab w/o w/r/r CV: rrr w/o m/r/g Abd: hypoactive bs, distention, TTP in all quadrants Ext: no c/c/e CBC, BMP 09/02/18 10:45 09/02/18 10:45 ASSESSMENT AND PLAN: Problem List - Problems (1) Colitis Assessment/Plan: -appreciate ID assistance and note reviewed -checking for c diff -on zosyn Code(s): K52.9 - NONINFECTIVE GASTROENTERITIS AND COLITIS, UNSPECIFIED (2) S/P laparoscopic appendectomy Assessment/Plan: -consult surgery (3) ESRD on hemodialysis Assessment/Plan: -nephrology aware -HD per nephrology Code(s): N18.6 - END STAGE RENAL DISEASE; Z99.2 - DEPENDENCE ON RENAL DIALYSIS (4) Hypertension Assessment/Plan: -currently controlled Code(s): I10 - ESSENTIAL (PRIMARY) HYPERTENSION Qualifiers: Hypertension type: unspecified Qualified Code(s): I10 - Essential (primary ) hypertension (5) Ileus Assessment/Plan: -npo -monitor Code(s): K56.7 - ILEUS, UNSPECIFIED (6) Sepsis Assessment/Plan: -antibiotics as above -IV hydration per nephrology Code(s): A41.9 - SEPSIS, UNSPECIFIED ORGANISM
--- NOTE | 2018-09-02 18:59 | CONSULT ---
Consult Consult Specialty:: General Surgery Referred by:: Tello Cross Reason for Consultation:: s/p lap appy, fever - History of Present Illness Chief Complaint: fever, mild nausea, some diarrhea overnight History of Present Illness: 32yo F with HTN, ESRD on HD, s/p laparoscopic appendectomy with primary supraumbilical/incisional hernia repair last week by me for acute appendicitis, had fever yesterday morning at home, and despite tylenol, had fever and chills at dialysis that day and was sent to ER. T max was 102, and she had mild nausea but no vomiting. She has only mild pain left from her appendectomy, using prn tylenol at home. No headache or dizziness. No urine since Thursday (she does urinate about daily when she drinks enough water at home) . Denies any skin lesions or bumps. No problems with her LUE AV fistula or HD. CT done in ER last night shows no abscess or collection in RLQ or pelvis, possibly mild ileus but no obstruction or free air or fluid. She also denies anyone ill at home, including spouse or children. She was admitted to medicine, blood cultures are pending, wbc was elevated at 14, and UA/cx and C. diff tests are pending urine and liquid stool specimens. She denied diarrhea at home, but said she had some overnight in the hospital. Denies abdominal pain. HD is planned for tomorrow by nephrology. She is getting some IV fluids for 24 hrs, and diet will be resumed imminently. - History Source History Provided By: Patient Limitations to Obtaining History: No Limitations (pt speaks Maltese and some Estonian but can communicate well enough for H&P) - Past Medical History Cardio/Vascular: Yes: HTN Gastrointestinal: Yes: Other (recent appendicitis s/p lap appy) Renal/: Yes: Renal Failure, Hemodialysis ...: No - Past Surgical History Past Surgical History: Yes: Appendectomy (laparoscopic 08/25/18), AV Fistula/ Graft (L arm AVF), (x3 lower midline), Hernia Repair (supraumbilical/ incisional (primarily sutured at lap appy)) - Alcohol/Substance Use Hx Alcohol Use: No History of Substance Use: reports: None - Smoking History Smoking history: Never smoked Have you smoked in the past 12 months: No - Social History Usual Living Arrangement: With Spouse ADL: Independent 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 Home Medications - Allergies Allergies/Adverse Reactions: Allergies Allergy/AdvReac Type Severity Reaction Status Date / Time No Known Allergies Allergy Verified 09/01/18 21:49 - Home Medications Home Medications: Ambulatory Orders Amlodipine Besylate [Norvasc -] 10 mg PO DAILY #0 tablet 06/02/13 Lisinopril [Prinivil] 20 mg PO DAILY #0 tablet 06/02/13 Sevelamer HCl [Renagel] 1,600 mg PO TID #0 tablet 06/02/13 Metoprolol Tartrate 50 mg PO BID 08/26/18 Family Disease History - Family Disease History Family History: Unremarkable (noncontributory) Review of Systems - Review of Systems Constitutional: reports: Chills, Fever Eyes: denies: Blurred Vision, Recent Change in Vision HENT: denies: Difficult Swallowing, Nasal Congestion, Throat Pain Neck: denies: Swollen Glands, Tenderness Cardiovascular: denies: Chest Pain, Palpitations Respiratory: denies: Cough, SOB Gastrointestinal: reports: Diarrhea (just last night in hospital), Nausea. denies: Abdominal Pain, Constipation, Vomiting Genitourinary: reports: Other (anuria/oliguria (see hpi)) Musculoskeletal: denies: Back Pain, Joint Pain, Muscle Pain Integumentary: denies: Change in Color, Lump, Rash, Wound Neurological: denies: Dizziness, Headache, Unsteady Gait Physical Exam Vital Signs: Vital Signs Temperature 100.3 F H 09/02/18 17:33 Pulse Rate 81 09/02/18 17:33 Respiratory Rate 18 09/02/18 17:33 Blood Pressure 129/90 09/02/18 17:33 O2 Sat by Pulse Oximetry (%) 98 09/02/18 03:42 Constitutional: Yes: Well Nourished, No Distress, Calm Eyes: Yes: Conjunctiva Clear, EOM Intact HENT: Yes: Atraumatic, Normocephalic Neck: Yes: Supple, Trachea Midline Cardiovascular: Yes: Tachycardia (slight), Murmur. No: Pulse Irregular Respiratory: Yes: Regular, CTA Bilaterally Gastrointestinal: Yes: Soft, Hypoactive Bowel Sounds, Other (laparoscopic incisions healing). No: Distention, Tenderness ...Rectal Exam: Yes: Deferred Renal/: Yes: Anuria ((last urinated Thursday per pt)). No: CVA Tenderness - Left, CVA Tenderness - Right Musculoskeletal: No: Joint Stiffness, Joint Swelling Extremities: No: Cool, Cyanosis Edema: No Peripheral Pulses WNL: Yes Integumentary: Yes: Incision (x3 with steris), Other (warm). No: Jaundice, Rash Wound/Incision: Yes: Clean/Dry, Well Approximated, Steri Strips (removed from 3 sites), Open to air. No: Reddened Neurological: Yes: Alert, Oriented. No: Unsteady Gait Psychiatric: Yes: Alert, Oriented Labs: CBC, BMP 09/02/18 10:45 09/02/18 10:45 CMP Sodium 134 mmol/L (136-145) L 09/02/18 10:45 Potassium 3.6 mmol/L (3.5-5.1) 09/02/18 10:45 Chloride 100 mmol/L (98-107) 09/02/18 10:45 Carbon Dioxide 21 mmol/L (21-32) 09/02/18 10:45 Anion Gap 12 MMOL/L (8-16) 09/02/18 10:45 BUN 24 mg/dL (7-18) H 09/02/18 10:45 Creatinine 6.9 mg/dL (0.55-1.3) H 09/02/18 10:45 Creat Clearance w eGFR 6.83 (>60) 09/02/18 10:45 Random Glucose 81 mg/dL (74-106) 09/02/18 10:45 Lactic Acid 0.7 mmol/L (0.4-2.0) 09/01/18 22:56 Calcium 8.0 mg/dL (8.5-10.1) L 09/02/18 10:45 Phosphorus 5.5 mg/dL (2.5-4.9) H 09/02/18 10:45 Magnesium 2.0 mg/dL (1.8-2.4) 09/02/18 10:45 Total Bilirubin 0.4 mg/dL (0.2-1) 09/01/18 22:56 AST 31 U/L (15-37) 09/01/18 22:56 ALT 45 U/L (13-61) 09/01/18 22:56 Alkaline Phosphatase 61 U/L (45-117) 09/01/18 22:56 Total Protein 6.9 g/dl (6.4-8.2) 09/01/18 22:56 Albumin 3.4 g/dl (3.4-5.0) 09/01/18 22:56 INR, PTT INR 1.25 (0.83-1.09) H 09/02/18 10:45 wbc up 1K today blood cultures pending Imaging - Results Cat Scan: Report Reviewed, Image Reviewed (images reviewed - no RLQ/pelvic abscess, no free air or fluid, postop changes s/p lap appy and supraumbilical/ incisional hernia repair (still with small bit of fat in umbilical area), fluid in SB and LB, possible ileus) Problem List - Problems (1) Fever and chills Assessment/Plan: admitted to medicine with leukocytosis blood cultures pending no apparent source no intraabdominal abscess or suspicion for infection in RLQ/pelvis s/p lap appy somewhat dehydrated - need pt to drink enough fluids to produce urine for examination check C. diff pending next stool specimen unclear etiology but does not appear related to recent surgery directly Code(s): R50.9 - FEVER, UNSPECIFIED (2) Nausea alone Code(s): R11.0 - NAUSEA (3) S/P laparoscopic appendectomy Assessment/Plan: steri's removed - incisions healing well no local redness, tenderness no intraabdominal collection healing well from surgical standpoint will check in tomorrow, but will probably not need to f/u in surgical clinic after discharge, as she has no acute issues directly related to postop status Code(s): Z90.49 - ACQUIRED ABSENCE OF OTHER SPECIFIED PARTS OF DIGESTIVE TRACT (4) ESRD on hemodialysis Assessment/Plan: for HD tomorrow - would not take much fluid off given fever, likely dehydration and inability to urinate despite usual pattern of ~daily when drinking enough fluids at home Code(s): N18.6 - END STAGE RENAL DISEASE; Z99.2 - DEPENDENCE ON RENAL DIALYSIS (5) Hypertension Code(s): I10 - ESSENTIAL (PRIMARY) HYPERTENSION Qualifiers: Hypertension type: unspecified Qualified Code(s): I10 - Essential (primary ) hypertension
--- NOTE | 2018-09-02 21:28 | PN ---
Physical Exam: SUBJECTIVE: Patient seen and examined; no current complaints; hungry; afebrile OBJECTIVE: Vital Signs Period Temp Pulse Resp BP Sys/House Pulse Ox Last 24 Hr 98.7 F-102.0 F 81-116 16-18 110-136/68-90 98-100 GENERAL: The patient is awake, alert, and fully oriented, in no acute distress. LUNGS: reath sounds equal, clear to auscultation bilaterally, no wheezes, no crackles, no accessory muscle use. HEART: Regular rate and rhythm, S1, S2 without murmur, rub or gallop. ABDOMEN: lap appy; sutires; inplace; no swelling or eryhtma; Soft, nontender, nondistended, normoactive bowel sounds, no guarding, no rebound, no hepatosplenomegaly, no masses. EXTREMITIES: 2+ pulses, warm, well-perfused, no edema. NEUROLOGICAL: Cranial nerves II through XII grossly intact. Normal speech, gait not observed. PSYCH: Normal mood, normal affect. SKIN: Warm, dry, normal turgor, no rashes or lesions noted Laboratory Results - last 24 hr 09/01/18 09/01/18 09/01/18 22:56 22:56 22:56 WBC 14.8 H RBC 3.20 L Hgb 11.5 Hct 32.2 L MCV 100.9 H MCH 36.1 H MCHC 35.8 RDW 14.4 Plt Count 153 MPV 8.6 Absolute Neuts (auto) 13.4 H Neutrophils % 90.8 H Lymphocytes % 3.6 L D Monocytes % 5.1 Eosinophils % 0.1 D Basophils % 0.4 Nucleated RBC % 0 PT with INR INR Sodium 135 L Potassium 3.4 L Chloride 99 Carbon Dioxide 27 Anion Gap 9 BUN 18 Creatinine 4.8 H Creat Clearance w eGFR 10.38 Random Glucose 87 Lactic Acid Calcium 8.9 Phosphorus Magnesium Total Bilirubin 0.4 AST 31 ALT 45 Alkaline Phosphatase 61 Total Protein 6.9 Albumin 3.4 Influenza A (Rapid) Negative Influenza B (Rapid) Negative 09/01/18 09/02/18 09/02/18 22:56 10:45 10:45 WBC 15.4 H RBC 2.93 L Hgb 10.3 L Hct 29.6 L MCV 101.0 H MCH 35.2 H MCHC 34.8 RDW 14.8 Plt Count 143 MPV 8.8 Absolute Neuts (auto) 13.8 H Neutrophils % 90.0 H Lymphocytes % 4.0 L Monocytes % 5.9 Eosinophils % 0.0 D Basophils % 0.1 Nucleated RBC % 0 PT with INR 14.80 H INR 1.25 H Sodium Potassium Chloride Carbon Dioxide Anion Gap BUN Creatinine Creat Clearance w eGFR Random Glucose Lactic Acid 0.7 Calcium Phosphorus Magnesium Total Bilirubin AST ALT Alkaline Phosphatase Total Protein Albumin Influenza A (Rapid) Influenza B (Rapid) 09/02/18 10:45 WBC RBC Hgb Hct MCV MCH MCHC RDW Plt Count MPV Absolute Neuts (auto) Neutrophils % Lymphocytes % Monocytes % Eosinophils % Basophils % Nucleated RBC % PT with INR INR Sodium 134 L Potassium 3.6 Chloride 100 Carbon Dioxide 21 Anion Gap 12 BUN 24 H Creatinine 6.9 H Creat Clearance w eGFR 6.83 Random Glucose 81 Lactic Acid Calcium 8.0 L Phosphorus 5.5 H Magnesium 2.0 Total Bilirubin AST ALT Alkaline Phosphatase Total Protein Albumin Influenza A (Rapid) Influenza B (Rapid) Active Medications Generic Name Dose Route Start Last Admin Trade Name Freq PRN Reason Stop Dose Admin Acetaminophen 1,000 mg 09/02/18 16:43 09/02/18 17:50 Ofirmev Injection - IVPB 1,000 mg Q6H PRN Administration PAIN LEVEL 6-10 Heparin Sodium (Porcine) 5,000 unit 09/02/18 22:00 Heparin - SQ BID DORY Sodium Chloride 1,000 mls @ 83 mls/hr 09/02/18 11:00 09/02/18 11:00 Normal Saline - IV 09/02/18 23:03 83 mls/hr ASDIR [facility] Administration Sodium Chloride 1,000 mls @ 70 mls/hr 09/02/18 12:45 09/02/18 13:15 Normal Saline - IV 09/03/18 12:44 Not Given ASDIR [facility] Sodium Chloride 250 mls @ 3,000 mls/hr 09/02/18 12:35 Normal Saline - IV 09/03/18 12:35 PRN PRN Hypotension during Dialysis Piperacillin Sod/Tazobactam 50 mls @ 100 mls/hr 09/02/18 18:00 09/02/18 17:44 Sod 2.25 gm/ Dextrose IVPB 100 mls/hr Q8H-IV [facility] Administration Protocol ASSESSMENT/PLAN: This is a 32 year old female with renal osteodystrophy with ESRD on HD who presented with fever at [facility] of 101-102F; s/p laproscopic appendectomy last week. #fever of unknown origin; s/p lap appy; and HD -possible abscess vs infection fron skin site for HD vs c diff vs viral gastroenteritis -IV zosyn; onetime vancomycin to cover staoh -blood cultures -id and surgery following #ESRD: -HD as per renal Diet :renal VTE: heparin Visit type - Emergency Visit Emergency Visit: Yes ED Registration Date: 09/02/18 Care time: The patient presented to the Emergency Department on the above date and was hospitalized for further evaluation of their emergent condition. - New Patient This patient is new to me today: Yes Date on this admission: 09/02/18 - Critical Care Critical Care patient: No
[2018-09-02] MEDS: HEPARIN NA (PORCINE) 5,000 UNITS/ML 1ML VIAL SQ SCH (21:36)
[2018-09-03] MEDS ORDERED: PIPERACILLIN/TAZOBACTAM 2.25 GM VIAL IVPB ONE ×4 (00:06→23:51)
[2018-09-03] MEDS ORDERED: DEXTROSE 5%-WATER - 50 ML IVPB ONE ×4 (00:06→23:51)
[2018-09-03] MEDS: PIPERACILLIN/TAZOB 2.25 GM 2.25 GM in DEXTROSE 5%-WATER - 50 ML IVPB SCH ×3 (01:24→17:55)
[2018-09-03] MEDS: SODIUM CHLORIDE 1,000 ML IV SCH (01:27)
[2018-09-03] MEDS ORDERED: PIPERACILLIN/TAZOB 2.25 GM 2.25 GM in DEXTROSE 5%-WATER - 50 ML IVPB SCH (02:00)
[2018-09-03 08:55] LABS: EPI CELLS 5.8 /HPF (0-5); HYALINE CASTS 1 /hpf (0-8); PH,URINE >= 9.0 (5.0-8.0); URINE APPEARANCE CLEAR; URINE BACTERIA 29.628 /hpf (NEGATIVE); URINE BILIRUBIN NEGATIVE (<2.0 mg/dL); URINE COLOR YELLOW; URINE GLUCOSE (UA) 1+ (NEGATIVE); URINE KETONE NEGATIVE (NEGATIVE); URINE LEUK ESTERASE TRACE (NEGATIVE); URINE NITRITE NEGATIVE (NEGATIVE); URINE PROTEIN 2+ (NEGATIVE); URINE UROBILINOGEN 0.2 mg/dL (0.2-1.0); URINE WBC 7 /hpf (0-5)
[2018-09-03] MEDS: HEPARIN NA (PORCINE) 5,000 UNITS/ML 1ML VIAL SQ SCH ×2 (09:11→21:24)
[2018-09-03 09:52] LABS: URINE RBC 39.8 /hpf (0-4); YEAST NONE SEEN (NEGATIVE)
[2018-09-03 11:10] LABS: HEMATOCRIT 26.9 % (32.4-45.2); HEMOGLOBIN 9.7 GM/dL (10.7-15.3); MCH 36.4 pg (25.7-33.7); MCHC 35.9 g/dl (32.0-36.0); MEAN CELL VOLUME 101.5 fl (80-96); MEAN PLT VOLUME 9.1 fl (7.5-11.1); PLATELET COUNT 141 K/MM3 (134-434); RBC 2.65 M/mm3 (3.60-5.2); RDW 14.6 % (11.6-15.6)
[2018-09-03] MEDS: SEVELAMER CARBONATE 800 MG TAB (FP) PO SCH ×2 (11:51→17:55)
--- NOTE | 2018-09-03 11:56 | PN ---
Progress Note (short form) - Note Progress Note: Renal follow up for ESRD on HD Pt seen and examined on dialysis BP stable, UF goal is minimal ~300-500cc pt without any acute complaints denies any abd pain had loose stools last night no fever, chills Vital Signs Temperature 98.5 F 09/03/18 10:25 Pulse Rate 66 09/03/18 11:30 Respiratory Rate 18 09/03/18 11:30 Blood Pressure 101/57 L 09/03/18 11:30 O2 Sat by Pulse Oximetry (%) 99 09/02/18 21:00 Intake & Output 08/31/18 09/01/18 09/02/18 09/03/18 23:59 23:59 23:59 23:59 Intake Total 1330 1070 Balance 1330 1070 Weight 70 kg 70 kg NAD RRR, no M/R CTA, no rales or wheeze slight tenderness LLQ No LE edema Left ARM AVF CBC, BMP 09/03/18 10:30 Current Medications Acetaminophen (Ofirmev Injection -) 1,000 mg IVPB Q6H PRN PRN Reason: PAIN LEVEL 6-10 Last Admin: 09/02/18 17:50 Dose: 1,000 mg Heparin Sodium (Porcine) (Heparin -) 5,000 unit SQ BID [facility] Last Admin: 09/03/18 09:11 Dose: 5,000 unit Sodium Chloride (Normal Saline -) 1,000 mls @ 70 mls/hr IV ASDIR [facility] Stop: 09/03/18 12:44 Last Admin: 09/03/18 01:27 Dose: 70 mls/hr Sodium Chloride (Normal Saline -) 250 mls @ 3,000 mls/hr IV PRN PRN PRN Reason: Hypotension during Dialysis Stop: 09/03/18 12:35 Piperacillin Sod/Tazobactam (Sod 2.25 gm/ Dextrose) 50 mls @ 100 mls/hr IVPB Q8H-IV DORY; Protocol Last Admin: 09/03/18 09:11 Dose: 100 mls/hr Lisinopril (Prinivil) 20 mg PO DAILY [facility] Metoprolol Tartrate (Lopressor -) 50 mg PO BID [facility] Sevelamer Carbonate (Renvela -) 1,600 mg PO TIDCM [facility] Last Admin: 09/03/18 11:51 Dose: Not Given Vancomycin HCl (Vancomycin Oral Solution) 125 mg PO Q6HPO [facility] Last Admin: 09/03/18 11:51 Dose: Not Given 32 year old woman with hx of ESRD on HD (MWF), Hypertension recent admission for appendectomy who presents from HD unit with fevers and admitted for colitis. #Colitis r/o C-diff #Fevers #ESRD on HD #Hypertension #Leukocytosis #CKD related Anemia Blood cultures negative so far, cultures from dialysis negative so far as well C-diff is pending Continue Empiric Abx as per ID CT did not show any collections or abscess s/p IVF yesterday, minimal UF with HD today tolerating dialysis well Renal diet Trend H/H, will give YANY with HD as needed Hold antihypertensives for now Haseeb Alejandro DO
[2018-09-03] MEDS ORDERED: VANCOMYCIN 250 MG/5 ML ORAL SOLUTION PO SCH (12:00)
[2018-09-03 12:12] LABS: ALBUMIN 2.7 g/dl (3.4-5.0); ALK PHOS 46 U/L (45-117); ANION GAP 8 MMOL/L (8-16); BILIRUBIN,TOTAL 0.4 mg/dL (0.2-1); BLOOD UREA NITROGEN 36 mg/dL (7-18); CALCIUM 8.2 mg/dL (8.5-10.1); CHLORIDE 106 mmol/L (98-107); CO2 20 mmol/L (21-32); GLUCOSE,RANDOM 117 mg/dL (74-106); PHOSPHOROUS 4.8 mg/dL (2.5-4.9); POTASSIUM 3.7 mmol/L (3.5-5.1); SGOT/AST 22 U/L (15-37); SGPT/ALT 37 U/L (13-61); SODIUM 134 mmol/L (136-145); TOT PROT 5.7 g/dl (6.4-8.2)
--- NOTE | 2018-09-03 15:57 | PN ---
Progress Note (short form) - Note Progress Note: several episodes of diarrhea last night better today Vital Signs Period Temp Pulse Resp BP Sys/House Pulse Ox Last 24 Hr 98.2 F-100.3 F 66-87 18-18 101-133/57-90 99-99 cor-rrr lungs clear abd soft,nt ext no edema CBC, BMP 09/03/18 10:30 09/03/18 10:30 Microbiology 09/02/18 21:40 Stool Clostridioides difficile Antigen - Final 09/02/18 21:40 Stool Clostridioides difficile Toxin Assay - Final 09/01/18 22:56 Blood - Peripheral Venous Blood Culture - Preliminary NO GROWTH OBTAINED AFTER 24 HOURS, INCUBATION TO CONTINUE FOR 4 DAYS. 09/01/18 22:56 Blood - Peripheral Venous Blood Culture - Preliminary NO GROWTH OBTAINED AFTER 24 HOURS, INCUBATION TO CONTINUE FOR 4 DAYS. a/p fevers resolved leukocytosis resolved cdiff is negative continue zosyn for now pending final culture results send stool for wbc and culture ct scan reviewed with radiology no abscess noted d/w resident Problem List - Problems (1) Fever Code(s): R50.9 - FEVER, UNSPECIFIED (3) ESRD on hemodialysis Code(s): N18.6 - END STAGE RENAL DISEASE; Z99.2 - DEPENDENCE ON RENAL DIALYSIS
[2018-09-03] MEDS ORDERED: ACETAMINOPHEN 325 MG TABLET (FP) PO PRN (17:12)
--- NOTE | 2018-09-03 17:13 | PN ---
Teaching Attending Note Name of Resident: Mavis Cross ATTENDING PHYSICIAN STATEMENT I saw and evaluated the patient. I reviewed the resident's note and discussed the case with the resident. I agree with the resident's findings and plan as documented. SUBJECTIVE: Ms Reece is without complaint. No cp, sob, n/v. Diarrhea resolved OBJECTIVE: Last Vital Signs Temp Pulse Resp BP Pulse Ox 37.2 C 89 20 135/90 99 09/03/18 16:15 09/03/18 16:15 09/03/18 16:15 09/03/18 16:15 09/03/18 09:00 Gen: nad Pulm: ctab w/o w/r/r CV: rrr w/o m/r/g Abd: +bs, s/nt/nd Ext: no c/c/e CBC, BMP 09/03/18 10:30 09/03/18 10:30 ASSESSMENT AND PLAN: (1) Colitis Assessment/Plan: -appreciate ID assistance and note reviewed -c diff negative and diarrhea resolved -oral vancomycin stopped -continue zosyn currently Code(s): K52.9 - NONINFECTIVE GASTROENTERITIS AND COLITIS, UNSPECIFIED (2) S/P laparoscopic appendectomy Assessment/Plan: -case d/w Dr Jimenez (3) ESRD on hemodialysis Assessment/Plan: -received HD today Code(s): N18.6 - END STAGE RENAL DISEASE; Z99.2 - DEPENDENCE ON RENAL DIALYSIS (4) Hypertension Assessment/Plan: -currently controlled Code(s): I10 - ESSENTIAL (PRIMARY) HYPERTENSION Qualifiers: Hypertension type: unspecified Qualified Code(s): I10 - Essential (primary ) hypertension (5) Ileus Assessment/Plan: -diet restarted Code(s): K56.7 - ILEUS, UNSPECIFIED (6) Sepsis Assessment/Plan: -resolved Code(s): A41.9 - SEPSIS, UNSPECIFIED ORGANISM Problem List - Problems (1) Colitis Code(s): K52.9 - NONINFECTIVE GASTROENTERITIS AND COLITIS, UNSPECIFIED (3) ESRD on hemodialysis Code(s): N18.6 - END STAGE RENAL DISEASE; Z99.2 - DEPENDENCE ON RENAL DIALYSIS (4) Hypertension Code(s): I10 - ESSENTIAL (PRIMARY) HYPERTENSION Qualifiers: Hypertension type: unspecified Qualified Code(s): I10 - Essential (primary ) hypertension (5) Ileus Code(s): K56.7 - ILEUS, UNSPECIFIED (6) Sepsis Code(s): A41.9 - SEPSIS, UNSPECIFIED ORGANISM
--- NOTE | 2018-09-03 17:31 | PN ---
Physical Exam: SUBJECTIVE: Patient seen and examined; on HD; states she has had multiple episodes of diarrhea with fever yesterday OBJECTIVE: Vital Signs Period Temp Pulse Resp BP Sys/House Pulse Ox Last 24 Hr 98.2 F-100.3 F 66-89 18-20 101-135/57-90 99-99 GENERAL: The patient is awake, alert, and fully oriented, in no acute distress. LUNGS: Breath sounds equal, clear to auscultation bilaterally, no wheezes, no crackles, no accessory muscle use. HEART: Regular rate and rhythm, S1, S2 without murmur, rub or gallop. ABDOMEN: Soft, nontender, nondistended, normoactive bowel sounds, no guarding, no rebound, no hepatosplenomegaly, no masses. EXTREMITIES: 2+ pulses, warm, well-perfused, no edema. Left fistula Laboratory Results - last 24 hr 09/03/18 09/03/18 09/03/18 03:30 03:30 06:30 WBC RBC Hgb Hct MCV MCH MCHC RDW Plt Count MPV Sodium Potassium Chloride Carbon Dioxide Anion Gap BUN Creatinine Creat Clearance w eGFR Random Glucose Calcium Phosphorus Magnesium 2.3 Total Bilirubin AST ALT Alkaline Phosphatase Total Protein Albumin Urine Color Yellow Urine Appearance Clear Urine pH >= 9.0 H Ur Specific [place] 1.018 Urine Protein 2+ Urine Glucose (UA) 1+ Urine Ketones Negative Urine Blood 2+ Urine Nitrite Negative Urine Bilirubin Negative Urine Urobilinogen 0.2 Ur Leukocyte Esterase Trace Urine WBC (Auto) 7 Urine RBC (Auto) 39.8 Urine Casts (Auto) 1 U Epithel Cells (Auto) 5.8 Urine Bacteria (Auto) 29.628 Urine Yeast (Auto) None seen Urine HCG, Qual Negative 09/03/18 09/03/18 10:30 10:30 WBC 8.0 RBC 2.65 L Hgb 9.7 L Hct 26.9 L MCV 101.5 H MCH 36.4 H MCHC 35.9 RDW 14.6 Plt Count 141 MPV 9.1 Sodium 134 L Potassium 3.7 Chloride 106 Carbon Dioxide 20 L Anion Gap 8 BUN 36 H Creatinine 9.0 H* Creat Clearance w eGFR 5.03 Random Glucose 117 H Calcium 8.2 L Phosphorus 4.8 Magnesium Total Bilirubin 0.4 AST 22 ALT 37 Alkaline Phosphatase 46 Total Protein 5.7 L Albumin 2.7 L Urine Color Urine Appearance Urine pH Ur Specific [place] Urine Protein Urine Glucose (UA) Urine Ketones Urine Blood Urine Nitrite Urine Bilirubin Urine Urobilinogen Ur Leukocyte Esterase Urine WBC (Auto) Urine RBC (Auto) Urine Casts (Auto) U Epithel Cells (Auto) Urine Bacteria (Auto) Urine Yeast (Auto) Urine HCG, Qual Active Medications Generic Name Dose Route Start Last Admin Trade Name Freq PRN Reason Stop Dose Admin Acetaminophen 325 mg 09/03/18 17:12 Tylenol - PO Q6H PRN PAIN Heparin Sodium (Porcine) 5,000 unit 09/02/18 22:00 09/03/18 09:11 Heparin - SQ 5,000 unit BID DORY Administration Sodium Chloride 250 mls @ 3,000 mls/hr 09/02/18 12:35 Normal Saline - IV 09/03/18 12:35 PRN PRN Hypotension during Dialysis Piperacillin Sod/Tazobactam 50 mls @ 100 mls/hr 09/02/18 18:00 09/03/18 09:11 Sod 2.25 gm/ Dextrose IVPB 100 mls/hr Q8H-IV DORY Administration Protocol Lisinopril 20 mg 09/04/18 10:00 Prinivil PO DAILY [facility] Metoprolol Tartrate 50 mg 09/03/18 22:00 Lopressor - PO BID DORY Sevelamer Carbonate 1,600 mg 09/03/18 12:00 09/03/18 11:51 Renvela - PO Not Given TIDCM [facility] ASSESSMENT/PLAN: This is a 32 year old female with renal osteodystrophy with ESRD on HD who presented with fever at [facility] of 101-102F; s/p laproscopic appendectomy last week. #fever /diarrhea ; s/p lap appy; r/o c diff; vs viral gastroenteritis -ct negative for abscess -IV zosyn; onetime vancomycin to cover staph; po vanco to cover c diff -blood cultures -id and surgery following #ESRD: -HD as per renal Diet :renal VTE: heparin Visit type - Emergency Visit Emergency Visit: Yes ED Registration Date: 09/02/18 Care time: The patient presented to the Emergency Department on the above date and was hospitalized for further evaluation of their emergent condition. - New Patient This patient is new to me today: No - Critical Care Critical Care patient: No
--- NOTE | 2018-09-03 19:20 | PN ---
Progress Note, Physician History of Present Illness: 32yo F with HTN, ESRD on HD, s/p laparoscopic appendectomy with primary supraumbilical/incisional hernia repair last week by me for acute appendicitis, had fever and chills at dialysis and was sent to ER. T max was 102 , and she had mild nausea but no vomiting. She has only mild pain left from her appendectomy, using prn tylenol at home. No headache or dizziness. Blood cultures have been negative, UA with some blood but does not look positive, cx pending and C. diff is negative. Denies abdominal pain except some very little in umbilical incision site. She is tolerating diet, still having some loose stools when she eats. - Current Medication List Current Medications: Active Medications Acetaminophen (Tylenol -) 325 mg PO Q6H PRN PRN Reason: PAIN Heparin Sodium (Porcine) (Heparin -) 5,000 unit SQ BID [facility] Last Admin: 09/03/18 09:11 Dose: 5,000 unit Sodium Chloride (Normal Saline -) 250 mls @ 3,000 mls/hr IV PRN PRN PRN Reason: Hypotension during Dialysis Stop: 09/03/18 12:35 Piperacillin Sod/Tazobactam (Sod 2.25 gm/ Dextrose) 50 mls @ 100 mls/hr IVPB Q8H-IV [facility]; Protocol Last Admin: 09/03/18 17:55 Dose: 100 mls/hr Lisinopril (Prinivil) 20 mg PO DAILY [facility] Metoprolol Tartrate (Lopressor -) 50 mg PO BID [facility] Sevelamer Carbonate (Renvela -) 1,600 mg PO TIDCM [facility] Last Admin: 09/03/18 17:55 Dose: 1,600 mg - Objective Vital Signs: Vital Signs Temperature 98.9 F 09/03/18 16:15 Pulse Rate 89 09/03/18 16:15 Respiratory Rate 20 09/03/18 16:15 Blood Pressure 135/90 09/03/18 16:15 O2 Sat by Pulse Oximetry (%) 99 09/03/18 09:00 Constitutional: Yes: Well Nourished, No Distress, Calm Eyes: Yes: Conjunctiva Clear, EOM Intact HENT: Yes: Atraumatic, Normocephalic Gastrointestinal: Yes: Soft, Tenderness (minimal umbilical incisional). No: Distention, Hernia (none palpable) ...Rectal Exam: Yes: Deferred Extremities: No: Cool, Cyanosis Integumentary: Yes: Incision (x3 healing). No: Jaundice, Rash Wound/Incision: Yes: Clean/Dry, Well Approximated (x3), Open to air. No: Reddened Neurological: Yes: Alert, Oriented Labs: CBC, BMP 09/03/18 10:30 09/03/18 10:30 pre-HD labs Microbiology 09/02/18 21:40 Clostridioides difficile Antigen - Final Stool Clostridioides difficile Toxin Assay - Final 09/01/18 22:56 Blood Culture - Preliminary Blood - Peripheral Venous NO GROWTH OBTAINED AFTER 24 HOURS, INCUBATION TO CONTINUE FOR 4 DAYS. 09/01/18 22:56 Blood Culture - Preliminary Blood - Peripheral Venous NO GROWTH OBTAINED AFTER 24 HOURS, INCUBATION TO CONTINUE FOR 4 DAYS. Problem List - Problems (1) Fever and chills Assessment/Plan: admitted to medicine with leukocytosis - now resolved to normal blood cultures negative, C. diff negative no apparent source no intraabdominal abscess or suspicion for infection in RLQ/pelvis s/p lap appy unclear etiology but does not appear related to recent surgery directly pt improved, still with some loose stools but no more fevers Code(s): R50.9 - FEVER, UNSPECIFIED (2) Nausea alone Assessment/Plan: resolved Code(s): R11.0 - NAUSEA (3) S/P laparoscopic appendectomy Assessment/Plan: incisions healing well no local redness, tenderness no intraabdominal collection healing well from surgical standpoint pt does not need to f/u in surgical clinic after discharge, as she has no acute issues directly related to postop status return to work note left in d/c plan Code(s): Z90.49 - ACQUIRED ABSENCE OF OTHER SPECIFIED PARTS OF DIGESTIVE TRACT (4) ESRD on hemodialysis Assessment/Plan: had HD today Code(s): N18.6 - END STAGE RENAL DISEASE; Z99.2 - DEPENDENCE ON RENAL DIALYSIS (5) Hypertension Code(s): I10 - ESSENTIAL (PRIMARY) HYPERTENSION Qualifiers: Hypertension type: unspecified Qualified Code(s): I10 - Essential (primary ) hypertension
[2018-09-03] MEDS: METOPROLOL TARTRATE 50 MG TABLET (FP) PO SCH (21:24)
[2018-09-04] MEDS: PIPERACILLIN/TAZOB 2.25 GM 2.25 GM in DEXTROSE 5%-WATER - 50 ML IVPB SCH ×3 (01:27→17:45)
[2018-09-04 08:21] LABS: BASO % 0.3 % (0-2.0); EOS % 2.9 % (0-4.5); HEMATOCRIT 25.7 % (32.4-45.2); HEMOGLOBIN 9.2 GM/dL (10.7-15.3); LYMPH % 25.8 % (8-40); MCH 35.9 pg (25.7-33.7); MCHC 35.6 g/dl (32.0-36.0); MEAN CELL VOLUME 100.8 fl (80-96); MEAN PLT VOLUME 9.1 fl (7.5-11.1); MONO % 14.3 % (3.8-10.2); NEUT % 56.7 % (42.8-82.8); PLATELET COUNT 131 K/MM3 (134-434); RBC 2.55 M/mm3 (3.60-5.2); RDW 14.6 % (11.6-15.6); WHITE BLOOD COUNT 4.6 K/mm3 (4.0-10.0)
[2018-09-04 08:22] LABS: ANION GAP 6 MMOL/L (8-16); BLOOD UREA NITROGEN 14 mg/dL (7-18); CALCIUM 8.6 mg/dL (8.5-10.1); CHLORIDE 104 mmol/L (98-107); CO2 29 mmol/L (21-32); CREATININE 5.4 mg/dL (0.55-1.3); GLUCOSE,RANDOM 82 mg/dL (74-106); MAGNESIUM 2.1 mg/dL (1.8-2.4); PHOSPHOROUS 3.8 mg/dL (2.5-4.9); POTASSIUM 3.7 mmol/L (3.5-5.1); SODIUM 139 mmol/L (136-145)
[2018-09-04] MEDS ORDERED: DEXTROSE 5%-WATER - 50 ML IVPB ONE ×2 (08:43→16:47)
[2018-09-04] MEDS ORDERED: PIPERACILLIN/TAZOBACTAM 2.25 GM VIAL IVPB ONE ×2 (08:43→16:47)
[2018-09-04] MEDS: HEPARIN NA (PORCINE) 5,000 UNITS/ML 1ML VIAL SQ SCH ×2 (09:32→21:08)
[2018-09-04] MEDS: LISINOPRIL 20 MG TABLET (FP) PO SCH (09:33)
[2018-09-04] MEDS: SEVELAMER CARBONATE 800 MG TAB (FP) PO SCH ×3 (09:34→17:45)
[2018-09-04] MEDS: METOPROLOL TARTRATE 50 MG TABLET (FP) PO SCH ×2 (09:34→21:07)
--- NOTE | 2018-09-04 11:50 | PN ---
Progress Note (short form) - Note Progress Note: Renal follow up for ESRD on HD Pt seen and examined on dialysis no acute complaints no further diarrhea no fever, chills tolerating oral diet no abd pain s/p HD yesterday Vital Signs Temperature 98.2 F 09/04/18 10:00 Pulse Rate 82 09/04/18 10:00 Respiratory Rate 18 09/04/18 10:00 Blood Pressure 136/78 09/04/18 10:00 O2 Sat by Pulse Oximetry (%) 99 09/03/18 21:00 Intake & Output 09/01/18 09/02/18 09/03/18 09/04/18 23:59 23:59 23:59 23:59 Intake Total 1330 1170 50 Balance 1330 1170 50 Weight 70 kg 70 kg 61.552 kg NAD RRR, no M/R CTA, no rales or wheeze slight tenderness LLQ No LE edema Left ARM AVF CBC, BMP 09/04/18 06:40 09/04/18 06:40 Current Medications Acetaminophen (Tylenol -) 325 mg PO Q6H PRN PRN Reason: PAIN Heparin Sodium (Porcine) (Heparin -) 5,000 unit SQ BID [facility] Last Admin: 09/04/18 09:32 Dose: 5,000 unit Sodium Chloride (Normal Saline -) 250 mls @ 3,000 mls/hr IV PRN PRN PRN Reason: Hypotension during Dialysis Stop: 09/03/18 12:35 Piperacillin Sod/Tazobactam (Sod 2.25 gm/ Dextrose) 50 mls @ 100 mls/hr IVPB Q8H-IV [facility]; Protocol Last Admin: 09/04/18 09:34 Dose: 100 mls/hr Lisinopril (Prinivil) 20 mg PO DAILY [facility] Last Admin: 09/04/18 09:33 Dose: 20 mg Metoprolol Tartrate (Lopressor -) 50 mg PO BID [facility] Last Admin: 09/04/18 09:34 Dose: 50 mg Sevelamer Carbonate (Renvela -) 1,600 mg PO TIDCM [facility] Last Admin: 09/04/18 09:34 Dose: 1,600 mg 32 year old woman with hx of ESRD on HD (MWF), Hypertension recent admission for appendectomy who presents from HD unit with fevers and admitted for colitis. #Colitis r/o C-diff #Fevers #ESRD on HD #Hypertension #Leukocytosis #CKD related Anemia Cdiff is negative on Zosyn as per ID continue supportive care tolerating oral diet will continue HD on MWF schedule Renal diet will continue YANY with HD for anemia Haseeb Alejandro DO
--- NOTE | 2018-09-04 13:58 | PN ---
Progress Note, Physician Chief Complaint: Ms Reece is without complaint. No cp, sob, n/v. - Current Medication List Current Medications: Active Medications Acetaminophen (Tylenol -) 325 mg PO Q6H PRN PRN Reason: PAIN Heparin Sodium (Porcine) (Heparin -) 5,000 unit SQ BID [facility] Last Admin: 09/04/18 09:32 Dose: 5,000 unit Sodium Chloride (Normal Saline -) 250 mls @ 3,000 mls/hr IV PRN PRN PRN Reason: Hypotension during Dialysis Stop: 09/03/18 12:35 Piperacillin Sod/Tazobactam (Sod 2.25 gm/ Dextrose) 50 mls @ 100 mls/hr IVPB Q8H-IV [facility]; Protocol Last Admin: 09/04/18 09:34 Dose: 100 mls/hr Lisinopril (Prinivil) 20 mg PO DAILY [facility] Last Admin: 09/04/18 09:33 Dose: 20 mg Metoprolol Tartrate (Lopressor -) 50 mg PO BID [facility] Last Admin: 09/04/18 09:34 Dose: 50 mg Sevelamer Carbonate (Renvela -) 1,600 mg PO TIDCM [facility] Last Admin: 09/04/18 12:08 Dose: 1,600 mg - Objective Vital Signs: Vital Signs Temperature 36.8 C 09/04/18 10:00 Pulse Rate 82 09/04/18 10:00 Respiratory Rate 18 09/04/18 10:00 Blood Pressure 136/78 09/04/18 10:00 O2 Sat by Pulse Oximetry (%) 99 09/03/18 21:00 Constitutional: Yes: Well Nourished, No Distress, Calm Cardiovascular: Yes: Regular Rate and Rhythm. No: Gallop, Murmur, Rub Respiratory: Yes: Regular, CTA Bilaterally. No: Rales, Rhonchi, Wheezes Gastrointestinal: Yes: Normal Bowel Sounds, Soft. No: Distention, Tenderness Extremities: Yes: WNL Edema: No Labs: CBC, BMP 09/04/18 06:40 09/04/18 06:40 INR, PTT INR 1.25 (0.83-1.09) H 09/02/18 10:45 Problem List - Problems (1) Colitis Code(s): K52.9 - NONINFECTIVE GASTROENTERITIS AND COLITIS, UNSPECIFIED (3) ESRD on hemodialysis Code(s): N18.6 - END STAGE RENAL DISEASE; Z99.2 - DEPENDENCE ON RENAL DIALYSIS (4) Hypertension Code(s): I10 - ESSENTIAL (PRIMARY) HYPERTENSION Qualifiers: Hypertension type: unspecified Qualified Code(s): I10 - Essential (primary ) hypertension (5) Ileus Code(s): K56.7 - ILEUS, UNSPECIFIED (6) Sepsis Code(s): A41.9 - SEPSIS, UNSPECIFIED ORGANISM Assessment/Plan (1) Colitis Assessment/Plan: -appreciate ID assistance -now asymptomatic -afebrile x48h -? if can change to oral antibiotics tomorrow and discharge Code(s): K52.9 - NONINFECTIVE GASTROENTERITIS AND COLITIS, UNSPECIFIED (2) S/P laparoscopic appendectomy Assessment/Plan: -appreciate surgical assistance (3) ESRD on hemodialysis Assessment/Plan: -Dr Javon bedolla, note reviewed -s/p HD yesterday Code(s): N18.6 - END STAGE RENAL DISEASE; Z99.2 - DEPENDENCE ON RENAL DIALYSIS (4) Hypertension Assessment/Plan: -currently controlled Code(s): I10 - ESSENTIAL (PRIMARY) HYPERTENSION Qualifiers: Hypertension type: unspecified Qualified Code(s): I10 - Essential (primary ) hypertension (5) Ileus Assessment/Plan: -tolerating diet Code(s): K56.7 - ILEUS, UNSPECIFIED (6) Sepsis Assessment/Plan: -resolved Code(s): A41.9 - SEPSIS, UNSPECIFIED ORGANISM
[2018-09-05] MEDS ORDERED: DEXTROSE 5%-WATER - 50 ML IVPB ONE ×2 (01:35→08:51)
[2018-09-05] MEDS ORDERED: PIPERACILLIN/TAZOBACTAM 2.25 GM VIAL IVPB ONE ×2 (01:35→08:50)
[2018-09-05] MEDS: PIPERACILLIN/TAZOB 2.25 GM 2.25 GM in DEXTROSE 5%-WATER - 50 ML IVPB SCH ×2 (01:47→09:58)
[2018-09-05 07:53] LABS: BASO % 0.2 % (0-2.0); HEMOGLOBIN 8.8 GM/dL (10.7-15.3); LYMPH % 25.2 % (8-40); MCH 35.3 pg (25.7-33.7); MCHC 35.2 g/dl (32.0-36.0); MEAN CELL VOLUME 100.3 fl (80-96); MEAN PLT VOLUME 9.2 fl (7.5-11.1); MONO % 10.4 % (3.8-10.2); NEUT % 62.2 % (42.8-82.8); PLATELET COUNT 137 K/MM3 (134-434); RBC 2.49 M/mm3 (3.60-5.2); RDW 14.5 % (11.6-15.6); WHITE BLOOD COUNT 4.8 K/mm3 (4.0-10.0)
[2018-09-05] MEDS: SEVELAMER CARBONATE 800 MG TAB (FP) PO SCH ×3 (08:00→18:10)
[2018-09-05 08:05] LABS: ANION GAP 9 MMOL/L (8-16); BLOOD UREA NITROGEN 25 mg/dL (7-18); CALCIUM 8.4 mg/dL (8.5-10.1); CHLORIDE 103 mmol/L (98-107); CO2 27 mmol/L (21-32); GLUCOSE,RANDOM 85 mg/dL (74-106); MAGNESIUM 2.2 mg/dL (1.8-2.4); POTASSIUM 3.8 mmol/L (3.5-5.1); SODIUM 139 mmol/L (136-145)
[2018-09-05 09:50] LABS: CREATININE 7.9 mg/dL (0.55-1.3)
[2018-09-05] MEDS: HEPARIN NA (PORCINE) 5,000 UNITS/ML 1ML VIAL SQ SCH ×2 (09:56→21:19)
[2018-09-05] MEDS: LISINOPRIL 20 MG TABLET (FP) PO SCH (09:57)
[2018-09-05] MEDS: METOPROLOL TARTRATE 50 MG TABLET (FP) PO SCH ×2 (09:57→21:19)
--- NOTE | 2018-09-05 12:14 | PN ---
Progress Note, Physician History of Present Illness: AWAKE, ALERT SEATED IN BED NO C/O ABDOMINAL PAIN TOLERATING DIET NO N/V NO DIARRHEA AFEBRILE WBC WNL CULTURES NEGATIVE - Current Medication List Current Medications: Active Medications Acetaminophen (Tylenol -) 325 mg PO Q6H PRN PRN Reason: PAIN Heparin Sodium (Porcine) (Heparin -) 5,000 unit SQ BID [facility] Last Admin: 09/05/18 09:56 Dose: 5,000 unit Sodium Chloride (Normal Saline -) 250 mls @ 3,000 mls/hr IV PRN PRN PRN Reason: Hypotension during Dialysis Stop: 09/03/18 12:35 Piperacillin Sod/Tazobactam (Sod 2.25 gm/ Dextrose) 50 mls @ 100 mls/hr IVPB Q8H-IV DORY; Protocol Last Admin: 09/05/18 09:58 Dose: 100 mls/hr Lisinopril (Prinivil) 20 mg PO DAILY [facility] Last Admin: 09/05/18 09:57 Dose: 20 mg Metoprolol Tartrate (Lopressor -) 50 mg PO BID [facility] Last Admin: 09/05/18 09:57 Dose: 50 mg Sevelamer Carbonate (Renvela -) 1,600 mg PO TIDCM [facility] Last Admin: 09/05/18 08:00 Dose: 1,600 mg - Objective Vital Signs: Vital Signs Temperature 98.7 F 09/05/18 06:00 Pulse Rate 65 09/05/18 06:00 Respiratory Rate 18 09/05/18 06:00 Blood Pressure 124/73 09/05/18 06:00 O2 Sat by Pulse Oximetry (%) 99 09/03/18 21:00 Constitutional: Yes: No Distress Cardiovascular: Yes: Regular Rate and Rhythm, S1, S2 Respiratory: Yes: CTA Bilaterally Gastrointestinal: Yes: Normal Bowel Sounds, Soft. No: Tenderness Labs: CBC, BMP 09/05/18 06:40 09/05/18 06:40 INR, PTT INR 1.25 (0.83-1.09) H 09/02/18 10:45 Assessment/Plan FEVER/ LEUKOCYTOSIS RESOLVED S/P APPENDECTOMY ESRD D/C ANTIBIOTICS OBSERVE OFF
--- NOTE | 2018-09-05 16:58 | PN ---
Progress Note, Physician Chief Complaint: Ms Reece says she feels good today. Denies cp, sob, n/v. - Current Medication List Current Medications: Active Medications Acetaminophen (Tylenol -) 325 mg PO Q6H PRN PRN Reason: PAIN Heparin Sodium (Porcine) (Heparin -) 5,000 unit SQ BID [facility] Last Admin: 09/05/18 09:56 Dose: 5,000 unit Sodium Chloride (Normal Saline -) 250 mls @ 3,000 mls/hr IV PRN PRN PRN Reason: Hypotension during Dialysis Stop: 09/03/18 12:35 Lisinopril (Prinivil) 20 mg PO DAILY [facility] Last Admin: 09/05/18 09:57 Dose: 20 mg Metoprolol Tartrate (Lopressor -) 50 mg PO BID [facility] Last Admin: 09/05/18 09:57 Dose: 50 mg Sevelamer Carbonate (Renvela -) 1,600 mg PO TIDCM [facility] Last Admin: 09/05/18 12:28 Dose: 1,600 mg - Objective Vital Signs: Vital Signs Temperature 37.2 C 09/05/18 10:00 Pulse Rate 76 09/05/18 10:00 Respiratory Rate 18 09/05/18 10:00 Blood Pressure 127/80 09/05/18 10:00 O2 Sat by Pulse Oximetry (%) 99 09/03/18 21:00 Constitutional: Yes: Well Nourished, No Distress, Calm Cardiovascular: Yes: Regular Rate and Rhythm. No: Gallop, Murmur, Rub Respiratory: Yes: Regular, CTA Bilaterally. No: Rales, Rhonchi, Wheezes Gastrointestinal: Yes: Normal Bowel Sounds, Soft. No: Distention, Tenderness Extremities: Yes: WNL Edema: No Labs: CBC, BMP 09/05/18 06:40 09/05/18 06:40 INR, PTT INR 1.25 (0.83-1.09) H 09/02/18 10:45 Problem List - Problems (1) Colitis Code(s): K52.9 - NONINFECTIVE GASTROENTERITIS AND COLITIS, UNSPECIFIED (3) ESRD on hemodialysis Code(s): N18.6 - END STAGE RENAL DISEASE; Z99.2 - DEPENDENCE ON RENAL DIALYSIS (4) Hypertension Code(s): I10 - ESSENTIAL (PRIMARY) HYPERTENSION Qualifiers: Hypertension type: unspecified Qualified Code(s): I10 - Essential (primary ) hypertension (5) Ileus Code(s): K56.7 - ILEUS, UNSPECIFIED (6) Sepsis Code(s): A41.9 - SEPSIS, UNSPECIFIED ORGANISM Assessment/Plan (1) Colitis Assessment/Plan: -appreciate ID assistance -now asymptomatic -case d/w Dr Maravilla -antibiotics stopped -observe -if remains afebrile and asymptomatic, discharge home tomorrow Code(s): K52.9 - NONINFECTIVE GASTROENTERITIS AND COLITIS, UNSPECIFIED (2) S/P laparoscopic appendectomy Assessment/Plan: -appreciate surgical assistance (3) ESRD on hemodialysis Assessment/Plan: -Dr Javon bedolla, note reviewed -HD tomorrow Code(s): N18.6 - END STAGE RENAL DISEASE; Z99.2 - DEPENDENCE ON RENAL DIALYSIS (4) Hypertension Assessment/Plan: -currently controlled Code(s): I10 - ESSENTIAL (PRIMARY) HYPERTENSION Qualifiers: Hypertension type: unspecified Qualified Code(s): I10 - Essential (primary ) hypertension (5) Ileus Assessment/Plan: -tolerating diet Code(s): K56.7 - ILEUS, UNSPECIFIED (6) Sepsis Assessment/Plan: -resolved Code(s): A41.9 - SEPSIS, UNSPECIFIED ORGANISM
[2018-09-05] MEDS ORDERED: PT OWN MED DRAWER 7, Y5N ONE (18:52)
[2018-09-06] MEDS: SEVELAMER CARBONATE 800 MG TAB (FP) PO SCH ×3 (09:18→17:20)
[2018-09-06] MEDS: HEPARIN NA (PORCINE) 5,000 UNITS/ML 1ML VIAL SQ SCH (09:18)
[2018-09-06] MEDS: METOPROLOL TARTRATE 50 MG TABLET (FP) PO SCH (09:19)
[2018-09-06] MEDS: LISINOPRIL 20 MG TABLET (FP) PO SCH (09:19)
--- NOTE | 2018-09-06 12:12 | PN ---
Progress Note (short form) - Note Progress Note: Renal follow up for ESRD on HD Pt seen and examined on dialysis no acute complaints no further diarrhea Vital Signs Temperature 98.8 F 09/06/18 09:00 Pulse Rate 74 09/06/18 09:00 Respiratory Rate 18 09/06/18 09:00 Blood Pressure 137/89 09/06/18 09:00 O2 Sat by Pulse Oximetry (%) 99 09/03/18 21:00 Intake & Output 09/03/18 09/04/18 09/05/18 09/06/18 23:59 23:59 23:59 23:59 Intake Total 1170 750 850 600 Balance 1170 750 850 600 Weight 61.552 kg 61.825 kg 62.641 kg NAD RRR, no M/R CTA, no rales or wheeze slight tenderness LLQ No LE edema Left ARM AVF CBC, BMP 09/05/18 06:40 09/05/18 06:40 Current Medications Acetaminophen (Tylenol -) 325 mg PO Q6H PRN PRN Reason: PAIN Epoetin Maciej (Epogen -) 10,000 unit IVPUSH ONCE ONE Stop: 09/06/18 06:26 Heparin Sodium (Porcine) (Heparin -) 5,000 unit SQ BID [facility] Last Admin: 09/06/18 09:18 Dose: Not Given Sodium Chloride (Normal Saline -) 250 mls @ 3,000 mls/hr IV PRN PRN PRN Reason: Hypotension during Dialysis Stop: 09/07/18 06:26 Lisinopril (Prinivil) 20 mg PO DAILY [facility] Last Admin: 09/06/18 09:19 Dose: Not Given Metoprolol Tartrate (Lopressor -) 50 mg PO BID [facility] Last Admin: 09/06/18 09:19 Dose: Not Given Sevelamer Carbonate (Renvela -) 1,600 mg PO TIDCM [facility] Last Admin: 09/06/18 09:18 Dose: Not Given 32 year old woman with hx of ESRD on HD (MWF), Hypertension recent admission for appendectomy who presents from HD unit with fevers and admitted for colitis. #Colitis r/o C-diff #Fevers #ESRD on HD #Hypertension #Leukocytosis #CKD related Anemia Cdiff is negative off antibiotics as per ID HD today discharge planning following dialysis Haseeb Alejandro DO
--- NOTE | 2018-09-06 13:05 | PN ---
Progress Note (short form) - Note Progress Note: feels well no diarrhea no fever no abdominal pain ate lunch Vital Signs Period Temp Pulse Resp BP Sys/House Pulse Ox Last 24 Hr 97.9 F-98.8 F 68-74 16-20 122-137/71-89 cor-rrr lungs clear abd soft,nt ext no edema CBC, BMP 09/05/18 06:40 09/05/18 06:40 Microbiology 09/01/18 22:56 Blood - Peripheral Venous Blood Culture - Preliminary NO GROWTH OBTAINED AFTER 96 HOURS, INCUBATION TO CONTINUE FOR 1 DAYS. 09/01/18 22:56 Blood - Peripheral Venous Blood Culture - Preliminary NO GROWTH OBTAINED AFTER 96 HOURS, INCUBATION TO CONTINUE FOR 1 DAYS. 09/03/18 03:30 Urine - Urine Clean Catch Urine Culture - Final NO GROWTH OBTAINED 09/02/18 21:40 Stool Clostridioides difficile Antigen - Final 09/02/18 21:40 Stool Clostridioides difficile Toxin Assay - Final a/p fevers resolved leukocytosis resolved s/p lap appy stable off antibiotics Problem List - Problems (1) Fever Code(s): R50.9 - FEVER, UNSPECIFIED (3) ESRD on hemodialysis Code(s): N18.6 - END STAGE RENAL DISEASE; Z99.2 - DEPENDENCE ON RENAL DIALYSIS
[2018-09-06] MEDS ORDERED: SODIUM CHLORIDE 250 ML IV PRN (13:31)
[2018-09-06 13:47] LABS: BASO % 0.5 % (0-2.0); EOS % 2.2 % (0-4.5); HEMATOCRIT 25.5 % (32.4-45.2); HEMOGLOBIN 9.3 GM/dL (10.7-15.3); LYMPH % 21.7 % (8-40); MCHC 36.2 g/dl (32.0-36.0); MEAN CELL VOLUME 99.3 fl (80-96); MEAN PLT VOLUME 9.2 fl (7.5-11.1); NEUT % 67.6 % (42.8-82.8); PLATELET COUNT 151 K/MM3 (134-434); RBC 2.57 M/mm3 (3.60-5.2); RDW 14.4 % (11.6-15.6); WHITE BLOOD COUNT 5.4 K/mm3 (4.0-10.0)
[2018-09-06] MEDS ORDERED: EPOETIN ALFA 10,000 UNIT/1 ML VIAL IVPUSH ONE (14:15)
[2018-09-06 14:16] LABS: ANION GAP 8 MMOL/L (8-16); BLOOD UREA NITROGEN 39 mg/dL (7-18); CALCIUM 8.6 mg/dL (8.5-10.1); CHLORIDE 104 mmol/L (98-107); CO2 24 mmol/L (21-32); GLUCOSE,RANDOM 120 mg/dL (74-106); MAGNESIUM 2.5 mg/dL (1.8-2.4); PHOSPHOROUS 3.4 mg/dL (2.5-4.9); POTASSIUM 3.6 mmol/L (3.5-5.1); SODIUM 136 mmol/L (136-145)
[2018-09-06 14:33] LABS: CREATININE 10.2 mg/dL (0.55-1.3)
--- NOTE | 2018-09-06 17:36 | DS ---
Physical Exam: SUBJECTIVE: Patient seen and examined; afebrile no complaints OBJECTIVE: Vital Signs Period Temp Pulse Resp BP Sys/House Pulse Ox Last 24 Hr 97.9 F-98.8 F 62-80 16-18 118-149/61-96 PHYSICAL EXAM GENERAL: The patient is awake, alert, and fully oriented, in no acute distress. HEAD: Normal with no signs of trauma. EYES: PERRL, extraocular movements intact, sclera anicteric, conjunctiva clear. ENT: Ears normal, nares patent, oropharynx clear without exudates, moist mucous membranes. NECK: Trachea midline, full range of motion, supple. LUNGS: Breath sounds equal, clear to auscultation bilaterally, no wheezes, no crackles, no accessory muscle use. HEART: Regular rate and rhythm, S1, S2 without murmur, rub or gallop. ABDOMEN: Soft, nontender, nondistended, normoactive bowel sounds, no guarding, no rebound, no hepatosplenomegaly, no masses. EXTREMITIES: 2+ pulses, warm, well-perfused, no edema. NEUROLOGICAL: Cranial nerves II through XII grossly intact. Normal speech, gait not observed. LABS Laboratory Results - last 24 hr 09/06/18 09/06/18 13:05 13:05 WBC 5.4 RBC 2.57 L Hgb 9.3 L Hct 25.5 L MCV 99.3 H MCH 36.0 H MCHC 36.2 H RDW 14.4 Plt Count 151 MPV 9.2 Absolute Neuts (auto) 3.7 Neutrophils % 67.6 Lymphocytes % 21.7 Monocytes % 8.0 Eosinophils % 2.2 Basophils % 0.5 Nucleated RBC % 0 Sodium 136 Potassium 3.6 Chloride 104 Carbon Dioxide 24 Anion Gap 8 BUN 39 H Creatinine 10.2 H* Creat Clearance w eGFR 4.35 Random Glucose 120 H Calcium 8.6 Phosphorus 3.4 Magnesium 2.5 H HOSPITAL COURSE: Date of Admission:09/02/18 Date of Discharge: 09/06/18 This is a 32 year old female with renal osteodystrophy with ESRD on HD who presented with fever at [facility] of 101-102F; s/p laproscopic appendectomy last week. Treated with IV antibiotics, zosyn. She was also treated with po vanco for presumed c diff, although c diff was negative on micro. CT abdomen /pelvis, negative for abscess or acute pathology. Minutes to complete discharge: 35 Discharge Summary Reason For Visit: COLITIS SEPSIS END STAGE RENAL DISEASE Current Active Problems Colitis (Acute) Fever (Acute) Fever and chills (Acute) Ileus (Acute) Nausea alone (Acute) S/P laparoscopic appendectomy (Acute) S/P laparoscopic appendectomy (Acute) Sepsis (Acute) Condition: Improved - Instructions Diet, Activity, Other Instructions: Ms. Reece, you have been evaluated i the hospital for a fever after you abdominal surgery. Your abdominal imaging was negative for acute findings. You have been treated with IV antibiotics and your fever has resolved. Please follow up with your kidney doctor for hemodialysis. Please follow up with your primary doctor regarding your hospital stay. If you experience any worsening of symptoms, please return to the emergency room , including fever, chills, chest pain, shortness of breath. Disposition: HOME - Home Medications Comprehensive Discharge Medication List: Ambulatory Orders Amlodipine Besylate [Norvasc -] 10 mg PO DAILY #0 tablet 06/02/13 Lisinopril [Prinivil] 20 mg PO DAILY #0 tablet 06/02/13 Sevelamer HCl [Renagel] 1,600 mg PO TID #0 tablet 06/02/13 Metoprolol Tartrate 50 mg PO BID 08/26/18 This patient is new to me today: No Emergency Visit: Yes ED Registration Date: 09/02/18 Care time: The patient presented to the Emergency Department on the above date and was hospitalized for further evaluation of their emergent condition. Critical Care patient: No - Discharge Referral Referred to [facility] Med P.C.: No
[2018-09-06 17:52] VITALS: BP 139/89; PULSE 79; TEMP 98.4
--- NOTE | 2018-09-06 18:07 | PN ---
Teaching Attending Note Name of Resident: Mavis Cross ATTENDING PHYSICIAN STATEMENT I saw and evaluated the patient. I reviewed the resident's note and discussed the case with the resident. I agree with the resident's findings and plan as documented. OBJECTIVE: Gen: nad Pulm: ctab CV: rrr Abd: +bs, s/nt/nd Ext: no c/c/e Ms Reece is a very pleasant 32 year old female who comes in with colitis. She was admitted and started on zosyn. She improved. She was monitored off antibiotics. She is safe for discharge home. Problem List - Problems (1) Colitis Code(s): K52.9 - NONINFECTIVE GASTROENTERITIS AND COLITIS, UNSPECIFIED (3) ESRD on hemodialysis Code(s): N18.6 - END STAGE RENAL DISEASE; Z99.2 - DEPENDENCE ON RENAL DIALYSIS (4) Hypertension Code(s): I10 - ESSENTIAL (PRIMARY) HYPERTENSION Qualifiers: Hypertension type: unspecified Qualified Code(s): I10 - Essential (primary ) hypertension (5) Ileus Code(s): K56.7 - ILEUS, UNSPECIFIED (6) Sepsis Code(s): A41.9 - SEPSIS, UNSPECIFIED ORGANISM
== END 2018-09-06 18:25 | disposition home or self-care (01) | DRG 249 ==
LOC: JER 21:24 → JERBED 09-02 01:57 → J8W 09-02 08:31
PROVIDERS: ADMIT Internal Medicine; ATTEND Internal Medicine
PROC: 5A1D70Z Performance of Urinary Filtration, Intermittent, Less than 6 Hours Per Day (ICD-10-PCS; principal; 2018-09-03)
PROC: 5A1D70Z Performance of Urinary Filtration, Intermittent, Less than 6 Hours Per Day (ICD-10-PCS; 2018-09-06)
DX: K52.9 Noninfective gastroenteritis and colitis, unspecified (principal); I12.0 Hypertensive chronic kidney disease with stage 5 chronic kidney disease or end stage renal disease; N18.6 End stage renal disease; Z99.2 Dependence on renal dialysis; N25.0 Renal osteodystrophy; D72.829 Elevated white blood cell count, unspecified; K56.7 Ileus, unspecified; D63.1 Anemia in chronic kidney disease; I45.81 Long QT syndrome; N83.201 Unspecified ovarian cyst, right side; R11.0 Nausea; N28.1 Cyst of kidney, acquired; Z90.49 Acquired absence of other specified parts of digestive tract
CPT/HCPCS: 36415; 71045-TC-FY; 74177-TC; 80048; 80053; 81003; 83605; 83631; 83735; 84100; 84703; 85025; 85027; 85610; 87040; 87086; 87324; 87449; 87804; 93005; 93010; 99284-25; J0131; J0885; J1644; J7030

== ENCOUNTER 2021-02-26 13:51 | Emergency (ER) | payer OTHER ==
[2021-02-26 14:03] VITALS: TEMP 98.6; BMI 25.8
[2021-02-26] MEDS ORDERED: MECLIZINE HCL 25 MG TABLET (FP) PO ONE (14:52)
[2021-02-26] MEDS ORDERED: MECLIZINE HCL 25 MG TABLET (FP) ONE (15:15)
[2021-02-26 15:35] LABS: BASO % 0.4 % (0-2.0); EOS % 0.6 % (0-4.5); HEMATOCRIT 29.4 % (32.4-45.2); HEMOGLOBIN 10.2 GM/dL (10.7-15.3); LYMPH % 12.5 % (8-40); MCH 33.8 pg (25.7-33.7); MCHC 34.8 g/dl (32.0-36.0); MEAN CELL VOLUME 97.3 fl (80-96); MEAN PLT VOLUME 9.1 fl (7.5-11.1); MONO % 7.7 % (3.8-10.2); NEUT % 78.8 % (42.8-82.8); PLATELET COUNT 170 10^3/uL (134-434); RBC 3.02 M/mm3 (3.60-5.2); RDW 15.2 % (11.6-15.6); WHITE BLOOD COUNT 10.3 K/mm3 (4.0-10.0)
[2021-02-26 15:51] LABS: CHLORIDE 103 mmol/L (98-107); SODIUM 135 mmol/L (136-145)
[2021-02-26 15:56] LABS: CALCIUM 8.6 mg/dL (8.5-10.1)
[2021-02-26 15:57] LABS: ANION GAP 8 MMOL/L (8-16); BLOOD UREA NITROGEN 43.9 mg/dL (7-18); CO2 25 mmol/L (21-32); GLUCOSE,RANDOM 103 mg/dL (74-106); MAGNESIUM 2.6 mg/dL (1.8-2.4)
[2021-02-26 16:00] LABS: PHOSPHOROUS 4.5 mg/dL (2.5-4.9); SGOT/AST 15 U/L (15-37); SGPT/ALT 40 U/L (13-61)
[2021-02-26 16:01] LABS: ALK PHOS 79 U/L (45-117); BILIRUBIN,TOTAL 0.3 mg/dL (0.2-1); TOT PROT 7.9 g/dl (6.4-8.2)
[2021-02-26 16:11] LABS: CREATININE 9.1 mg/dL (0.55-1.3)
[2021-02-26] MEDS ORDERED: SODIUM CHLORIDE 250 ML IV STA (16:56)
[2021-02-26] MEDS ORDERED: ACETAMINOPHEN 325 MG TABLET (FP) PO ONE (16:59)
[2021-02-26] MEDS ORDERED: ACETAMINOPHEN 325 MG TABLET (FP) ONE (17:12)
[2021-02-26 19:16] VITALS: BP 104/60; PULSE 67
== END 2021-02-26 19:05 | disposition home or self-care (01) ==
LOC: JER 13:51
PROC: 3E0337Z Introduction of Electrolytic and Water Balance Substance into Peripheral Vein, Percutaneous Approach (ICD-10-PCS; principal; 2021-02-26)
DX: R42 Dizziness and giddiness (principal)
CPT/HCPCS: 36415; 70450-TC; 80053; 82550; 83735; 84100; 84484; 85025; 93005; 93010; 99285-25

== ENCOUNTER 2021-08-02 17:42 | Emergency (ER) | payer OTHER ==
[2021-08-02] MEDS ORDERED: ACETAMINOPHEN 500 MG TABLET (FP) PO ONE (18:16)
[2021-08-02] MEDS ORDERED: ACETAMINOPHEN 325 MG TABLET (FP) ONE (18:22)
[2021-08-02 18:34] VITALS: TEMP 97.9; BMI 25.4
[2021-08-02 18:37] LABS: BASO % 0.3 % (0-2.0); EOS % 1.9 % (0-4.5); HEMATOCRIT 30.9 % (32.4-45.2); HEMOGLOBIN 10.8 GM/dL (10.7-15.3); LYMPH % 20.2 % (8-40); MCH 34.3 pg (25.7-33.7); MCHC 34.8 g/dl (32.0-36.0); MEAN CELL VOLUME 98.8 fl (80-96); MEAN PLT VOLUME 8.9 fl (7.5-11.1); NEUT % 68.6 % (42.8-82.8); PLATELET COUNT 197 10^3/uL (134-434); RBC 3.13 M/mm3 (3.60-5.2); RDW 16.8 % (11.6-15.6); WHITE BLOOD COUNT 9.5 K/mm3 (4.0-10.0)
[2021-08-02 19:00] LABS: CHLORIDE 107 mmol/L (98-107); SODIUM 137 mmol/L (136-145)
[2021-08-02 19:03] LABS: ALBUMIN 3.9 g/dl (3.4-5.0); ANION GAP 7 MMOL/L (8-16); BLOOD UREA NITROGEN 61.7 mg/dL (7-18); CALCIUM 8.5 mg/dL (8.5-10.1); CO2 23 mmol/L (21-32); GLUCOSE,RANDOM 100 mg/dL (74-106)
[2021-08-02 19:06] LABS: SGOT/AST 18 U/L (15-37); SGPT/ALT 38 U/L (13-61)
[2021-08-02 19:08] LABS: BILIRUBIN,TOTAL 0.4 mg/dL (0.2-1); TOT PROT 7.2 g/dl (6.4-8.2)
[2021-08-02 19:09] LABS: ALK PHOS 59 U/L (45-117)
[2021-08-02 19:12] LABS: CREATININE 10.1 mg/dL (0.55-1.3)
[2021-08-02] MEDS ORDERED: ALBUTEROL SO4 HFA INHALER IH ONE ×2 (19:17→19:33)
[2021-08-02] MEDS ORDERED: INSULIN REGULAR HUMAN 100 UNITS/ML *VIAL IVPUSH ONE (19:17)
[2021-08-02] MEDS ORDERED: DEXTROSE 50%-WATER - 25 GM/50 ML VIAL IVPUSH ONE (19:17)
[2021-08-02] MEDS ORDERED: SODIUM ZIRCONIUM CYCLOSILICATE (LOKELMA) 5 GM PACKET ONE (19:33)
[2021-08-02 20:26] VITALS: BP 161/86; PULSE 76
[2021-08-02] MEDS ORDERED: SODIUM ZIRCONIUM CYCLOSILICATE (LOKELMA) 5 GM PACKET PO ONE (20:45)
[2021-08-03] MEDS ORDERED: SODIUM ZIRCONIUM CYCLOSILICATE (LOKELMA) 5 GM PACKET PO ONE ×2 (19:15→19:51)
== END 2021-08-02 21:27 | disposition home or self-care (01) ==
LOC: JER 17:42
PROC: 3E033GC Introduction of Other Therapeutic Substance into Peripheral Vein, Percutaneous Approach (ICD-10-PCS; principal; 2021-08-02)
PROC: 3E0F7GC Introduction of Other Therapeutic Substance into Respiratory Tract, Via Natural or Artificial Opening (ICD-10-PCS; 2021-08-02)
DX: R07.9 Chest pain, unspecified (principal); E87.5 Hyperkalemia
CPT/HCPCS: 36415; 71046-TC-FY; 80053; 82550; 83880; 84484; 85025; 93005; 93010; 99285-25

== ENCOUNTER 2021-09-14 16:28 | Emergency (ER) | payer OTHER ==
[2021-09-14 16:50] VITALS: TEMP 97.8; BMI 25.4
[2021-09-14] MEDS ORDERED: DOCUSATE SODIUM 100 MG CAPSULE (FP) PO ONE ×2 (18:27→19:49)
[2021-09-14] MEDS ORDERED: HYDROmorphone HCL CARPU-JECT 2 MG/1 ML DISP.SYRIN IVPUSH ONE (18:27)
[2021-09-14] MEDS ORDERED: LIDOCAINE 5% TOPICAL PATCH TP ONE (18:29)
[2021-09-14] MEDS ORDERED: KETOROLAC TROMETHAMINE 30 MG/1 ML VIAL IVPUSH ONE (18:30)
[2021-09-14] MEDS ORDERED: HYDROmorphone HCl 2 MG/ML VIAL ONE (18:37)
[2021-09-14] MEDS ORDERED: LIDOCAINE 5% TOPICAL PATCH ONE (18:38)
[2021-09-14] MEDS ORDERED: METOPROLOL TARTRATE 25 MG TABLET (FP) PO ONE (18:49)
[2021-09-14 19:38] VITALS: BP 154/104; PULSE 64
[2021-09-14] MEDS ORDERED: KETOROLAC TROMETHAMINE 15 MG/ML VIAL ONE (19:50)
[2021-09-14] MEDS ORDERED: METOPROLOL TARTRATE 25 MG TABLET (FP) ONE (19:50)
[2021-09-14] MEDS ORDERED: ACETAMINOPHEN 1000 MG/100 ML BAG IVPB ONE (20:35)
[2021-09-14] MEDS ORDERED: ACETAMINOPHEN INJECTION 100 ML IVPB ONE (20:46)
[2021-09-14] MEDS ORDERED: LIDOCAINE PATCH REMOVAL MC SCH (22:00)
[2021-09-14 22:08] LABS: BASO % 0.4 % (0-2.0); EOS % 1.7 % (0-4.5); LYMPH % 27.5 % (8-40); MCH 34.1 pg (25.7-33.7); MCHC 33.3 g/dl (32.0-36.0); MEAN CELL VOLUME 102.4 fl (80-96); MEAN PLT VOLUME 9.9 fl (7.5-11.1); MONO % 7.8 % (3.8-10.2); NEUT % 62.6 % (42.8-82.8); PLATELET COUNT 202 10^3/uL (134-434); RBC 3.52 M/mm3 (3.60-5.2); RDW 16.1 % (11.6-15.6)
[2021-09-14 22:16] LABS: CHLORIDE 101 mmol/L (98-107); SODIUM 137 mmol/L (136-145)
[2021-09-14 22:18] LABS: CALCIUM 9.2 mg/dL (8.5-10.1)
[2021-09-14 22:19] LABS: ALBUMIN 4.3 g/dl (3.4-5.0); ANION GAP 12 MMOL/L (8-16); BLOOD UREA NITROGEN 58.7 mg/dL (7-18); CO2 24 mmol/L (21-32); GLUCOSE,RANDOM 122 mg/dL (74-106)
[2021-09-14 22:22] LABS: SGOT/AST 21 U/L (15-37); SGPT/ALT 45 U/L (13-61)
[2021-09-14 22:23] LABS: TOT PROT 7.7 g/dl (6.4-8.2)
[2021-09-14 22:24] LABS: BILIRUBIN,TOTAL 0.4 mg/dL (0.2-1)
[2021-09-14 22:25] LABS: ALK PHOS 57 U/L (45-117); CREATININE 8.1 mg/dL (0.55-1.3)
== END 2021-09-15 00:33 | disposition home or self-care (01) ==
LOC: JER 16:28
PROC: 3E033GC Introduction of Other Therapeutic Substance into Peripheral Vein, Percutaneous Approach (ICD-10-PCS; principal; 2021-09-14)
DX: M62.838 Other muscle spasm (principal)
CPT/HCPCS: 36415; 71046-TC-FY; 80053; 84484; 85025; 93005; 93010; 99285-25

== ENCOUNTER 2022-09-18 16:35 | Emergency (ER) | payer OTHER ==
[2022-09-18 16:57] VITALS: BP 187/108; PULSE 75; RESP 18; TEMP 98; BMI 27.3
[2022-09-18 19:21] LABS: BASO % 0.5 % (0-2.0); EOS % 1.5 % (0-4.5); HEMATOCRIT 31.6 % (32.4-45.2); HEMOGLOBIN 10.7 GM/dL (10.7-15.3); LYMPH % 21.3 % (8-40); MCH 33.7 pg (25.7-33.7); MCHC 33.9 g/dl (32.0-36.0); MEAN CELL VOLUME 99.4 fl (80-96); MEAN PLT VOLUME 8.7 fl (7.5-11.1); MONO % 9.8 % (3.8-10.2); NEUT % 66.9 % (42.8-82.8); PLATELET COUNT 125 10^3/uL (134-434); RBC 3.18 M/mm3 (3.60-5.2); RDW 14.4 % (11.6-15.6); WHITE BLOOD COUNT 6.7 K/mm3 (4.0-10.0)
[2022-09-18 19:34] LABS: CHLORIDE 105 mmol/L (98-107); SODIUM 136 mmol/L (136-145)
[2022-09-18 19:36] LABS: CALCIUM 9.1 mg/dL (8.5-10.1)
[2022-09-18 19:37] LABS: ALBUMIN 3.8 g/dl (3.4-5.0); ANION GAP 7 MMOL/L (8-16); BLOOD UREA NITROGEN 34.9 mg/dL (7-18); CO2 24 mmol/L (21-32); GLUCOSE,RANDOM 98 mg/dL (74-106)
[2022-09-18 19:40] LABS: CREATININE 6.6 mg/dL (0.55-1.3); SGOT/AST 17 U/L (15-37); SGPT/ALT 39 U/L (13-61)
[2022-09-18 19:42] LABS: BILIRUBIN,TOTAL 0.4 mg/dL (0.2-1); TOT PROT 7.5 g/dl (6.4-8.2)
[2022-09-18 19:43] LABS: ALK PHOS 112 U/L (45-117)
[2022-09-18 19:44] LABS: ACTIVATED PTT 29.5 SECONDS (25.2-36.5); INR 1.02 (0.83-1.09); PROTHROMBIN TIME (PATIENT) 11.8 SEC (9.7-13.0)
== END 2022-09-18 22:16 | disposition home or self-care (01) ==
LOC: JER 16:35
DX: N93.9 Abnormal uterine and vaginal bleeding, unspecified (principal)
CPT/HCPCS: 36415; 76830-TC; 80053; 84702; 84703; 85025; 85610; 85730; 86850; 86900; 86901; 99284-25

== ENCOUNTER 2022-10-10 19:35 | Inpatient (IN) | payer OTHER ==
[2022-10-10 19:52] VITALS: RESP 20
[2022-10-10 20:50] LABS: BASO % 2.5 % (0-2.0); EOS % 1.9 % (0-4.5); HEMATOCRIT 31.5 % (32.4-45.2); HEMOGLOBIN 11.1 GM/dL (10.7-15.3); MCH 34.9 pg (25.7-33.7); MCHC 35.3 g/dl (32.0-36.0); MEAN CELL VOLUME 98.9 fl (80-96); MEAN PLT VOLUME 8.9 fl (7.5-11.1); MONO % 5.7 % (3.8-10.2); NEUT % 69.9 % (42.8-82.8); PLATELET COUNT 129 10^3/uL (134-434); RBC 3.18 M/mm3 (3.60-5.2); RDW 14.4 % (11.6-15.6); WHITE BLOOD COUNT 5.1 K/mm3 (4.0-10.0)
[2022-10-10 21:09] LABS: POTASSIUM 3.5 mmol/L (3.5-5.1)
[2022-10-10 21:11] LABS: ALBUMIN 3.6 g/dl (3.4-5.0); CALCIUM 9.4 mg/dL (8.5-10.1)
[2022-10-10 21:12] LABS: BLOOD UREA NITROGEN 17.3 mg/dL (7-18)
[2022-10-10 21:13] LABS: INR 1.13 (0.83-1.09); PROTHROMBIN TIME (PATIENT) 13.1 SEC (9.7-13.0)
[2022-10-10 21:15] LABS: CREATININE 3.6 mg/dL (0.55-1.3)
[2022-10-10 21:16] LABS: BILIRUBIN,TOTAL 0.6 mg/dL (0.2-1)
[2022-10-10 21:17] LABS: TOT PROT 7.2 g/dl (6.4-8.2)
[2022-10-10] MEDS ORDERED: ACETAMINOPHEN 1000 MG/100 ML BAG IVPB ONE (21:22)
[2022-10-10] MEDS ORDERED: ASPIRIN 81 MG CHEWABLE TABLETS PO ONE (21:24)
[2022-10-10] MEDS ORDERED: ASPIRIN 81 MG CHEWABLE TABLETS ONE (21:31)
[2022-10-10] MEDS ORDERED: ACETAMINOPHEN INJECTION 100 ML IVPB ONE (21:32)
[2022-10-10] MEDS ORDERED: hydrALAZINE HCL 20 MG/ML VIAL IVPUSH ONE (23:29)
[2022-10-10] MEDS ORDERED: hydrALAZINE HCL 25 MG TABLET (FP) PO ONE (23:30)
[2022-10-10] MEDS ORDERED: hydrALAZINE HCL 20 MG/ML VIAL ONE (23:32)
[2022-10-10] MEDS ORDERED: hydrALAZINE HCL 25 MG TABLET (FP) ONE (23:32)
[2022-10-11] MEDS ORDERED: hydrALAZINE HCL 20 MG/ML VIAL IVPUSH PRN (00:51)
[2022-10-11 03:32] VITALS: BMI 24.4
[2022-10-11] MEDS ORDERED: hydrALAZINE HCL 25 MG TABLET (FP) PO SCH (06:00)
[2022-10-11] MEDS: HEPARIN NA (PORCINE) 5,000 UNITS/ML 1ML VIAL SQ SCH ×2 (06:53→13:13)
[2022-10-11 07:21] LABS: BASO % 0.4 % (0-2.0); EOS % 1.1 % (0-4.5); HEMATOCRIT 29.7 % (32.4-45.2); HEMOGLOBIN 10.3 GM/dL (10.7-15.3); LYMPH % 16.9 % (8-40); MCH 34.5 pg (25.7-33.7); MCHC 34.7 g/dl (32.0-36.0); MEAN CELL VOLUME 99.4 fl (80-96); MONO % 7.3 % (3.8-10.2); NEUT % 74.3 % (42.8-82.8); PLATELET COUNT 112 10^3/uL (134-434); RBC 2.99 M/mm3 (3.60-5.2); RDW 14.6 % (11.6-15.6); WHITE BLOOD COUNT 4.4 K/mm3 (4.0-10.0)
[2022-10-11] MEDS: SEVELAMER CARBONATE 800 MG TAB (FP) PO SCH ×2 (07:41→12:10)
[2022-10-11 07:43] LABS: POTASSIUM 4.3 mmol/L (3.5-5.1)
[2022-10-11 07:49] LABS: CALCIUM 8.8 mg/dL (8.5-10.1)
[2022-10-11 07:50] LABS: ALBUMIN 3.3 g/dl (3.4-5.0); BLOOD UREA NITROGEN 25.4 mg/dL (7-18); MAGNESIUM 1.8 mg/dL (1.8-2.4)
[2022-10-11 07:52] LABS: PHOSPHOROUS 3.5 mg/dL (2.5-4.9)
[2022-10-11 07:53] LABS: CREATININE 4.8 mg/dL (0.55-1.3)
[2022-10-11 07:54] LABS: BILIRUBIN,TOTAL 0.5 mg/dL (0.2-1); TOT PROT 6.5 g/dl (6.4-8.2)
[2022-10-11] MEDS ORDERED: ACETAMINOPHEN 325 MG TABLET (FP) PO PRN ×2 (09:03→09:09)
[2022-10-11] MEDS ORDERED: LOSARTAN POTASSIUM 50 MG TABLET PO SCH (10:00)
[2022-10-11] MEDS ORDERED: amLODIPine BESYLATE 5 MG TABLET (FP) PO SCH (10:00)
[2022-10-11] MEDS ORDERED: amLODIPine BESYLATE 10 MG TABLET (FP) PO SCH (10:00)
[2022-10-11] MEDS ORDERED: METOPROLOL TARTRATE 50 MG TABLET (FP) PO SCH (10:00)
[2022-10-11 15:13] VITALS: BP 136/76; PULSE 63; TEMP 99.2
== END 2022-10-11 16:35 | disposition home or self-care (01) | DRG 199 ==
LOC: JER 19:35 → JERBED 22:05 → J4W 10-11 01:00
PROVIDERS: ADMIT Internal Medicine; ATTEND Internal Medicine
DX: I16.0 Hypertensive urgency (principal); N18.6 End stage renal disease; D69.6 Thrombocytopenia, unspecified; D64.9 Anemia, unspecified; I51.7 Cardiomegaly; R06.02 Shortness of breath; R07.89 Other chest pain; R20.2 Paresthesia of skin; I12.0 Hypertensive chronic kidney disease with stage 5 chronic kidney disease or end stage renal disease; R21 Rash and other nonspecific skin eruption; Z99.2 Dependence on renal dialysis
CPT/HCPCS: 36415; 71045-TC-FY; 80053; 82306; 83735; 84100; 84484; 85025; 85610; 93005; 93010; 99285-25; C9803-CS; J1644; U0003; U0005

== ENCOUNTER 2022-11-29 14:17 | Emergency (ER) | payer OTHER ==
[2022-11-29 14:26] VITALS: BMI 31.2
[2022-11-29 16:54] LABS: BASO % 0.3 % (0-2.0); EOS % 0.9 % (0-4.5); HEMATOCRIT 35.5 % (32.4-45.2); MCH 33.3 pg (25.7-33.7); MCHC 33.9 g/dl (32.0-36.0); MEAN CELL VOLUME 98.2 fl (80-96); MEAN PLT VOLUME 8.5 fl (7.5-11.1); MONO % 6.2 % (3.8-10.2); NEUT % 82.6 % (42.8-82.8); PLATELET COUNT 118 10^3/uL (134-434); RBC 3.61 M/mm3 (3.60-5.2); RDW 15.1 % (11.6-15.6)
[2022-11-29 17:01] LABS: INR 1.08 (0.83-1.09); PROTHROMBIN TIME (PATIENT) 12.5 SEC (9.7-13.0)
[2022-11-29 17:04] LABS: ACTIVATED PTT 26.6 SECONDS (25.2-36.5)
[2022-11-29 17:18] LABS: POTASSIUM 4.5 mmol/L (3.5-5.1)
[2022-11-29 17:20] LABS: ALBUMIN 3.7 g/dl (3.4-5.0); CALCIUM 8.7 mg/dL (8.5-10.1)
[2022-11-29 17:21] LABS: BLOOD UREA NITROGEN 40.7 mg/dL (7-18)
[2022-11-29 17:24] LABS: CREATININE 5.8 mg/dL (0.55-1.3)
[2022-11-29 17:25] LABS: TOT PROT 7.1 g/dl (6.4-8.2)
[2022-11-29 17:26] LABS: BILIRUBIN,TOTAL 0.5 mg/dL (0.2-1)
[2022-11-29 18:27] VITALS: BP 179/105; PULSE 67; RESP 16; TEMP 98.2
== END 2022-11-29 18:30 | disposition home or self-care (01) ==
LOC: JER 14:17 → JERFT 14:17 → JER 18:30
DX: M79.674 Pain in right toe(s) (principal); D69.6 Thrombocytopenia, unspecified; S92.424A Nondisplaced fracture of distal phalanx of right great toe, initial encounter for closed fracture; W22.8XXA Striking against or struck by other objects, initial encounter
CPT/HCPCS: 36415; 73660-TC-FY; 80053; 85025; 85610; 85730; 86850; 86900; 86901; 99284-25

== ENCOUNTER 2023-05-05 21:15 | Emergency (ER) | payer OTHER ==
[2023-05-05 21:29] VITALS: RESP 18; BMI 30.7
[2023-05-05] MEDS ORDERED: ACETAMINOPHEN INJECTION 100 ML IVPB ONE (22:06)
[2023-05-05] MEDS ORDERED: ACETAMINOPHEN 1000 MG/100 ML BAG IVPB ONE (22:48)
[2023-05-05 22:57] VITALS: BP 158/84; PULSE 102
[2023-05-05 23:21] LABS: BASO % 0.5 % (0-2.0); HEMATOCRIT 32.6 % (32.4-45.2); HEMOGLOBIN 10.7 GM/dL (10.7-15.3); LYMPH % 6.5 % (8-40); MCH 31.6 pg (25.7-33.7); MCHC 32.9 g/dl (32.0-36.0); MEAN CELL VOLUME 95.9 fl (80-96); MEAN PLT VOLUME 8.7 fl (7.5-11.1); MONO % 6.7 % (3.8-10.2); NEUT % 86.3 % (42.8-82.8); PLATELET COUNT 103 10^3/uL (134-434); RDW 16.3 % (11.6-15.6); WHITE BLOOD COUNT 10.9 K/mm3 (4.0-10.0)
[2023-05-05] MEDS ORDERED: ONDANSETRON 4 MG/2 ML VIAL IVPUSH ONE (23:28)
[2023-05-05] MEDS ORDERED: ONDANSETRON 4 MG/2 ML VIAL ONE (23:33)
[2023-05-05 23:37] LABS: POTASSIUM 4.6 mmol/L (3.5-5.1)
[2023-05-05 23:40] LABS: ALBUMIN 3.6 g/dl (3.4-5.0); BLOOD UREA NITROGEN 26.4 mg/dL (7-18); CALCIUM 8.9 mg/dL (8.5-10.1)
[2023-05-05 23:43] LABS: CREATININE 7.1 mg/dL (0.55-1.3)
[2023-05-05 23:45] LABS: BILIRUBIN,TOTAL 0.8 mg/dL (0.2-1); TOT PROT 7.3 g/dl (6.4-8.2)
[2023-05-06 00:09] LABS: EPI CELLS >36 /uL (0-25.1); HYALINE CASTS 1 /uL (0-3.1); PH,URINE 8.5 (5.0-8.0); URINE APPEARANCE CLOUDY; URINE BACTERIA 511 /uL (0-1359); URINE BILIRUBIN NEGATIVE (NEGATIVE); URINE COLOR YELLOW; URINE GLUCOSE (UA) TRACE (NEGATIVE); URINE KETONE NEGATIVE (NEGATIVE); URINE LEUK ESTERASE NEGATIVE (NEGATIVE); URINE NITRITE NEGATIVE (NEGATIVE); URINE PROTEIN 3+ (NEGATIVE); URINE RBC 55 /uL (0-23.9); URINE UROBILINOGEN 0.2 mg/dL (0.2-1.0)
[2023-05-06 00:19] VITALS: TEMP 99.8
== END 2023-05-06 01:37 | disposition home or self-care (01) ==
LOC: JER 21:15
PROC: 3E033NZ Introduction of Analgesics, Hypnotics, Sedatives into Peripheral Vein, Percutaneous Approach (ICD-10-PCS; principal; 2023-05-05)
PROC: 3E033GC Introduction of Other Therapeutic Substance into Peripheral Vein, Percutaneous Approach (ICD-10-PCS; 2023-05-05)
DX: I12.0 Hypertensive chronic kidney disease with stage 5 chronic kidney disease or end stage renal disease (principal); N18.6 End stage renal disease; R50.9 Fever, unspecified; B34.9 Viral infection, unspecified; R11.2 Nausea with vomiting, unspecified; R19.7 Diarrhea, unspecified; R00.0 Tachycardia, unspecified; Z20.822 Contact with and (suspected) exposure to COVID-19
CPT/HCPCS: 0241U-QW; 36415; 71045-TC-FY; 80053; 81003; 83605; 83690; 84703; 85025; 87086; 93005; 93010; 99285-25

== ENCOUNTER 2023-06-15 21:36 | Emergency (ER) | payer OTHER ==
[2023-06-15 21:44] VITALS: RESP 18; BMI 22.8
[2023-06-15] MEDS ORDERED: OSELTAMIVIR PHOSPHATE 75 MG CAPSULE PO ONE (23:43)
[2023-06-15 23:51] VITALS: BP 137/76; PULSE 70; TEMP 99.3
[2023-06-15] MEDS ORDERED: ACETAMINOPHEN 325 MG TABLET (FP) PO ONE (23:52)
[2023-06-15] MEDS ORDERED: ACETAMINOPHEN 325 MG TABLET (FP) ONE (23:55)
== END 2023-06-16 00:12 | disposition home or self-care (01) ==
LOC: JER 21:36
DX: R50.9 Fever, unspecified (principal); R05.9 Cough, unspecified; R51.9 Headache, unspecified; M79.10 Myalgia, unspecified site; J10.1 Influenza due to other identified influenza virus with other respiratory manifestations; Z20.822 Contact with and (suspected) exposure to COVID-19
CPT/HCPCS: 0241U-QW; 99283-25

== ENCOUNTER 2023-09-01 22:14 | Inpatient (IN) | payer OTHER ==
[2023-09-01] MEDS ORDERED: FAMOTIDINE 20 MG/50 ML IVPB 20 MG/50 ML MG IVPB ONE (22:54)
[2023-09-01] MEDS ORDERED: ONDANSETRON 4 MG/2 ML VIAL ONE (22:54)
[2023-09-01] MEDS: FAMOTIDINE 20 MG/50 ML IVPB 20 MG/50 ML MG IVPB ONE (22:59)
[2023-09-01] MEDS: ONDANSETRON 4 MG/2 ML VIAL IVPUSH ONE (22:59)
[2023-09-01 23:03] LABS: BASO % 0.4 % (0-2.0); EOS % 1.4 % (0-4.5); HEMOGLOBIN 11.6 GM/dL (10.7-15.3); LYMPH % 18.4 % (8-40); MCH 33.9 pg (25.7-33.7); MCHC 34.2 g/dl (32.0-36.0); MEAN CELL VOLUME 98.9 fl (80-96); MEAN PLT VOLUME 8.3 fl (7.5-11.1); MONO % 9.1 % (3.8-10.2); NEUT % 70.7 % (42.8-82.8); PLATELET COUNT 91 10^3/uL (134-434); RBC 3.43 M/mm3 (3.60-5.2); RDW 16.1 % (11.6-15.6); WHITE BLOOD COUNT 6.8 K/mm3 (4.0-10.0)
[2023-09-01 23:10] LABS: INR 1.1 (0.83-1.09); PROTHROMBIN TIME (PATIENT) 12.7 SEC (9.7-13.0)
[2023-09-01 23:12] LABS: ACTIVATED PTT 32.2 SECONDS (25.2-36.5)
[2023-09-01 23:34] LABS: POTASSIUM 4.9 mmol/L (3.5-5.1)
[2023-09-01 23:36] LABS: BLOOD UREA NITROGEN 46.8 mg/dL (7-18); CALCIUM 9.3 mg/dL (8.5-10.1)
[2023-09-01 23:37] LABS: ALBUMIN 3.7 g/dl (3.4-5.0); MAGNESIUM 2.3 mg/dL (1.8-2.4)
[2023-09-01 23:39] LABS: CREATININE 7.3 mg/dL (0.55-1.3)
[2023-09-01 23:41] LABS: BILIRUBIN,TOTAL 0.8 mg/dL (0.2-1); TOT PROT 7.8 g/dl (6.4-8.2)
[2023-09-02] MEDS ORDERED: amLODIPine BESYLATE 10 MG TABLET (FP) ONE (02:22)
[2023-09-02] MEDS: amLODIPine BESYLATE 10 MG TABLET (FP) PO ONE ×2 (02:24→06:30)
[2023-09-02 04:14] VITALS: BMI 23.9
[2023-09-02] MEDS: LOSARTAN POTASSIUM 50 MG TABLET PO ONE ×2 (06:30→11:05)
[2023-09-02] MEDS: HEPARIN NA (PORCINE) 5,000 UNITS/ML 1ML VIAL SQ SCH (06:31)
[2023-09-02 07:35] LABS: BASO % 0.4 % (0-2.0); EOS % 1.6 % (0-4.5); HEMATOCRIT 30.4 % (32.4-45.2); HEMOGLOBIN 10.1 GM/dL (10.7-15.3); LYMPH % 18.7 % (8-40); MCHC 33.2 g/dl (32.0-36.0); MEAN CELL VOLUME 99.4 fl (80-96); MEAN PLT VOLUME 8.3 fl (7.5-11.1); MONO % 9.5 % (3.8-10.2); NEUT % 69.8 % (42.8-82.8); PLATELET COUNT 80 10^3/uL (134-434); RBC 3.06 M/mm3 (3.60-5.2)
[2023-09-02 07:39] VITALS: TEMP 98.2
[2023-09-02 07:43] LABS: CHLORIDE 109 mmol/L (98-107); POTASSIUM 5.7 mmol/L (3.5-5.1); SODIUM 138 mmol/L (136-145)
[2023-09-02 07:45] LABS: CALCIUM 8.2 mg/dL (8.5-10.1); GLUCOSE,RANDOM 89 mg/dL (74-106)
[2023-09-02 07:46] LABS: ANION GAP 11 mmol/L (4-13); CO2 18 mmol/L (21-32); MAGNESIUM 2.1 mg/dL (1.8-2.4)
[2023-09-02 07:47] LABS: BLOOD UREA NITROGEN 51.9 mg/dL (7-18)
[2023-09-02 07:48] LABS: SGPT/ALT 51 U/L (13-61)
[2023-09-02 07:49] LABS: SGOT/AST 27 U/L (15-37)
[2023-09-02 07:50] LABS: BILIRUBIN,TOTAL 0.7 mg/dL (0.2-1); TOT PROT 6.7 g/dl (6.4-8.2)
[2023-09-02 08:39] LABS: ALK PHOS 198 U/L (45-117); CREATININE 7.5 mg/dL (0.55-1.3)
[2023-09-02] MEDS: PANTOPRAZOLE 40 MG TABLET PO SCH (11:05)
[2023-09-02] MEDS: SODIUM ZIRCONIUM CYCLOSILICATE (LOKELMA) 5 GM PACKET PO ONE (11:05)
[2023-09-02] MEDS ORDERED: SODIUM CHLORIDE 250 ML IV PRN (12:25)
[2023-09-02] MEDS: HEPARIN NA (PORCINE) 5,000 UNITS/ML 1ML VIAL IVPUSH ONE (14:37)
[2023-09-02 14:53] VITALS: RESP 18
[2023-09-02] MEDS: ACETAMINOPHEN 325 MG TABLET (FP) PO ONE (15:48)
[2023-09-02 18:16] VITALS: BP 131/90; PULSE 60
[2023-09-03] MEDS ORDERED: amLODIPine BESYLATE 10 MG TABLET (FP) PO SCH (10:00)
[2023-09-03] MEDS ORDERED: LOSARTAN POTASSIUM 50 MG TABLET PO SCH (10:00)
== END 2023-09-02 19:35 | disposition home or self-care (01) | DRG 199 ==
LOC: JER 22:14 → JERBED 09-02 01:53 → J4S 09-02 03:38 → OBSVTOIN 09-02 04:24
PROVIDERS: ADMIT Internal Medicine; ATTEND Nurse Practitioner Acute Care
PROC: 5A1D70Z Performance of Urinary Filtration, Intermittent, Less than 6 Hours Per Day (ICD-10-PCS; principal; 2023-09-02)
DX: I16.0 Hypertensive urgency (principal); N18.6 End stage renal disease; D63.1 Anemia in chronic kidney disease; I49.3 Ventricular premature depolarization; R10.9 Unspecified abdominal pain; I1A.0 Resistant hypertension; I12.0 Hypertensive chronic kidney disease with stage 5 chronic kidney disease or end stage renal disease; Z99.2 Dependence on renal dialysis
CPT/HCPCS: 0241U-QW; 36415; 71045-TC-FY; 74177-TC; 80053; 83605; 83690; 83735; 84100; 84439; 84443; 84484; 84703; 85025; 85610; 85730; 86803; 87340; 93005; 93010; 99285-25; G0378; J1644